=== PATIENT | male | born 1985 | race Caucasian/White ===

== ENCOUNTER → 2016-11-11 | Outpatient (REF) | payer BC ==
[2016-11-11 12:12] LABS: ALBUMIN 3.7 GM/DL (3.2-5.2); ALKALINE PHOSPHATASE 78 U/L (45-117); ALT/SGPT 75 U/L (12-78); ANION GAP 9 MEQ/L (8-16); AST/SGOT 30 U/L (15-37); BILIRUBIN,TOTAL 0.6 MG/DL (0.2-1.0); BLOOD UREA NITROGEN 10 MG/DL (7-18); CALCIUM LEVEL 9.2 MG/DL (8.5-10.1); CARBON DIOXIDE LEVEL 30 MEQ/L (21-32); CHLORIDE LEVEL 105 MEQ/L (98-107); CHOLESTEROL LEVEL 160 MG/DL (<200); CREATININE FOR GFR 0.81 MG/DL (0.70-1.30); FREE T4 1.35 NG/DL (0.76-1.46); GLOMERULAR FILTRATION RATE > 60.0 (>60); GLUCOSE, FASTING 153 MG/DL (70-105); POTASSIUM SERUM 4.1 MEQ/L (3.5-5.1); SODIUM LEVEL 144 MEQ/L (136-145); TOTAL PROTEIN 7.4 GM/DL (6.4-8.2); TRIGLYCERIDES LEVEL 139 MG/DL (<150)
== END ==
LOC: M SFHCCLAY 08:16
PROVIDERS: ATTEND Family Medicine
DX: I10 Essential (primary) hypertension (principal); E11.9 Type 2 diabetes mellitus without complications

== ENCOUNTER → 2017-05-16 | Outpatient (REF) | payer BC ==
[2017-05-16 12:06] LABS: ALBUMIN 3.7 GM/DL (3.2-5.2); ALBUMIN/GLOBULIN RATIO 0.93 (1.00-1.93); ALKALINE PHOSPHATASE 97 U/L (45-117); ALT/SGPT 76 U/L (12-78); ANION GAP 7 MEQ/L (8-16); AST/SGOT 32 U/L (7-37); BILIRUBIN,TOTAL 0.5 MG/DL (0.2-1.0); BLOOD UREA NITROGEN 9 MG/DL (7-18); CALCIUM LEVEL 9.3 MG/DL (8.5-10.1); CARBON DIOXIDE LEVEL 29 MEQ/L (21-32); CHLORIDE LEVEL 106 MEQ/L (98-107); CHOLESTEROL LEVEL 169 MG/DL (<200); CREATININE FOR GFR 0.74 MG/DL (0.70-1.30); FREE T4 1.22 NG/DL (0.76-1.46); GLOMERULAR FILTRATION RATE > 60.0 (>60); GLUCOSE, FASTING 144 MG/DL (70-105); POTASSIUM SERUM 3.9 MEQ/L (3.5-5.1); SODIUM LEVEL 142 MEQ/L (136-145); TOTAL PROTEIN 7.7 GM/DL (6.4-8.2); TRIGLYCERIDES LEVEL 169 MG/DL (<150)
== END ==
LOC: M SFHCCLAY 07:57
PROVIDERS: ATTEND Family Medicine
DX: I10 Essential (primary) hypertension (principal); E11.9 Type 2 diabetes mellitus without complications

== ENCOUNTER → 2017-11-01 | Outpatient (REF) | payer BC ==
[2017-11-01 12:20] LABS: ESTIMATED AVERAGE GLUCOSE 157 MG/DL (60-110); HEMOGLOBIN A1c 7.1 %
[2017-11-01 12:37] LABS: MALB URINE SIEMENS 28.1 MG/L; MAU/CREAT RATIO 21.4 MCG/MG (0.0-30.0)
[2017-11-01 12:40] LABS: ALBUMIN 3.8 GM/DL (3.2-5.2); ALBUMIN/GLOBULIN RATIO 0.93 (1.00-1.93); ALKALINE PHOSPHATASE 87 U/L (45-117); ALT/SGPT 98 U/L (12-78); ANION GAP 9 MEQ/L (8-16); AST/SGOT 42 U/L (7-37); BILIRUBIN,TOTAL 0.7 MG/DL (0.2-1.0); BLOOD UREA NITROGEN 8 MG/DL (7-18); CALCIUM LEVEL 8.9 MG/DL (8.5-10.1); CARBON DIOXIDE LEVEL 27 MEQ/L (21-32); CHLORIDE LEVEL 104 MEQ/L (98-107); CHOLESTEROL LEVEL 161 MG/DL (<200); CREATININE FOR GFR 0.61 MG/DL (0.70-1.30); FREE T4 1.12 NG/DL (0.76-1.46); GLOMERULAR FILTRATION RATE > 60.0 (>60); GLUCOSE, FASTING 136 MG/DL (70-100); HDL CHOLESTEROL 35 MG/DL (>40); LDL CHOLESTEROL 95.6 MG/DL (<100); NON-HDL-C 126 MG/DL; POTASSIUM SERUM 3.8 MEQ/L (3.5-5.1); SODIUM LEVEL 140 MEQ/L (136-145); THYROID STIMULATING HORMONE 0.846 uIU/ML (0.358-3.740); TOTAL PROTEIN 7.9 GM/DL (6.4-8.2); TRIGLYCERIDES LEVEL 152 MG/DL (<150)
== END ==
LOC: M SFHCCLAY 09:20
DX: I10 Essential (primary) hypertension (principal); E11.9 Type 2 diabetes mellitus without complications
CPT/HCPCS: 84443

== ENCOUNTER → 2018-03-22 | Outpatient (REF) | payer BC ==
[2018-03-22 11:57] LABS: ESTIMATED AVERAGE GLUCOSE 137 MG/DL (60-110); HEMOGLOBIN A1c 6.4 %
[2018-03-22 12:32] LABS: ALBUMIN/GLOBULIN RATIO 1.08 (1.00-1.93); ALKALINE PHOSPHATASE 89 U/L (45-117); ALT/SGPT 47 U/L (12-78); ANION GAP 9 MEQ/L (8-16); AST/SGOT 18 U/L (7-37); BILIRUBIN,TOTAL 0.5 MG/DL (0.2-1.0); BLOOD UREA NITROGEN 12 MG/DL (7-18); CARBON DIOXIDE LEVEL 26 MEQ/L (21-32); CHLORIDE LEVEL 108 MEQ/L (98-107); CREATININE FOR GFR 0.77 MG/DL (0.70-1.30); GLOMERULAR FILTRATION RATE > 60.0 (>60); GLUCOSE, FASTING 120 MG/DL (70-100); POTASSIUM SERUM 3.9 MEQ/L (3.5-5.1); SODIUM LEVEL 143 MEQ/L (136-145); TOTAL PROTEIN 7.7 GM/DL (6.4-8.2)
== END ==
LOC: M SFHCCLAY 08:20
DX: I10 Essential (primary) hypertension (principal)
CPT/HCPCS: 80053

== ENCOUNTER → 2018-08-09 | Outpatient (REF) | payer BC | LOC: M SFHCCLAY 09:22 | PROVIDERS: ATTEND Family Medicine | DX: Z53.9 Procedure and treatment not carried out, unspecified reason (principal); I10 Essential (primary) hypertension; E11.9 Type 2 diabetes mellitus without complications ==

== ENCOUNTER → 2018-09-10 | Outpatient (REF) | payer BC ==
[2018-09-10 17:19] LABS: ALBUMIN 3.7 GM/DL (3.2-5.2); ALT/SGPT 64 U/L (12-78); BILIRUBIN,TOTAL 0.5 MG/DL (0.2-1.0); BLOOD UREA NITROGEN 8 MG/DL (7-18); CALCIUM LEVEL 8.8 MG/DL (8.5-10.1); CARBON DIOXIDE LEVEL 27 MEQ/L (21-32); CHLORIDE LEVEL 104 MEQ/L (98-107); CREATININE FOR GFR 0.65 MG/DL (0.70-1.30); GLOMERULAR FILTRATION RATE > 60.0 (>60); GLUCOSE, FASTING 140 MG/DL (70-100); POTASSIUM SERUM 3.9 MEQ/L (3.5-5.1); SODIUM LEVEL 140 MEQ/L (136-145); TOTAL PROTEIN 7.6 GM/DL (6.4-8.2)
== END ==
LOC: M SFHCCLAY 12:53
PROVIDERS: ATTEND Family Medicine
DX: E11.9 Type 2 diabetes mellitus without complications (principal)

== ENCOUNTER → 2019-02-04 | Outpatient (REF) | payer BC ==
[2019-02-04 17:40] LABS: ALBUMIN 3.7 GM/DL (3.2-5.2); ALT/SGPT 115 U/L (12-78); BILIRUBIN,TOTAL 0.7 MG/DL (0.2-1.0); BLOOD UREA NITROGEN 8 MG/DL (7-18); CALCIUM LEVEL 8.7 MG/DL (8.5-10.1); CARBON DIOXIDE LEVEL 32 MEQ/L (21-32); CHLORIDE LEVEL 104 MEQ/L (98-107); CHOLESTEROL LEVEL 181 MG/DL (<200); CHOLESTEROL RISK RATIO 4.891 (<5); GLOMERULAR FILTRATION RATE > 60.0 (>60); GLUCOSE, FASTING 170 MG/DL (70-100); HDL CHOLESTEROL 37 MG/DL (>40); LDL CHOLESTEROL 114 MG/DL (<100); NON-HDL-C 144 MG/DL; POTASSIUM SERUM 3.7 MEQ/L (3.5-5.1); SODIUM LEVEL 142 MEQ/L (136-145); TOTAL PROTEIN 7.5 GM/DL (6.4-8.2); TRIGLYCERIDES LEVEL 149 MG/DL (<150)
[2019-02-04 18:19] LABS: HEMOGLOBIN A1c 7.6 %
== END ==
LOC: M SFHCCLAY 10:05
PROVIDERS: ATTEND Family Medicine
DX: I10 Essential (primary) hypertension (principal); E78.2 Mixed hyperlipidemia; E11.9 Type 2 diabetes mellitus without complications

== ENCOUNTER → 2019-07-01 | Outpatient (REF) | payer BC ==
[2019-07-01 16:47] LABS: ALBUMIN 3.8 GM/DL (3.2-5.2); ALT/SGPT 143 U/L (12-78); BILIRUBIN,TOTAL 0.8 MG/DL (0.2-1.0); BLOOD UREA NITROGEN 7 MG/DL (7-18); CARBON DIOXIDE LEVEL 30 MEQ/L (21-32); CHLORIDE LEVEL 104 MEQ/L (98-107); CREATININE FOR GFR 0.72 MG/DL (0.70-1.30); GLOMERULAR FILTRATION RATE > 60.0 (>60); GLUCOSE, FASTING 213 MG/DL (70-100); POTASSIUM SERUM 4.2 MEQ/L (3.5-5.1); SODIUM LEVEL 141 MEQ/L (136-145); TOTAL PROTEIN 7.7 GM/DL (6.4-8.2)
[2019-07-01 18:16] LABS: HEMOGLOBIN A1c 8.4 %
[2019-07-03 11:19] LABS: HEPATITIS C VIRUS ABY INDEX 0.1 INDEX (<0.8)
== END ==
LOC: M SFHCCLAY 11:19
PROVIDERS: ATTEND Family Medicine
DX: I10 Essential (primary) hypertension (principal); E11.9 Type 2 diabetes mellitus without complications; R94.5 Abnormal results of liver function studies

== ENCOUNTER → 2019-12-02 | Outpatient (REF) | payer BC ==
[2019-12-02 17:36] LABS: HEMOGLOBIN A1c 8.1 %
[2019-12-02 17:53] LABS: ALBUMIN 3.6 GM/DL (3.2-5.2); ALT/SGPT 75 U/L (12-78); BILIRUBIN,TOTAL 0.9 MG/DL (0.2-1.0); BLOOD UREA NITROGEN 8 MG/DL (7-18); CALCIUM LEVEL 9.1 MG/DL (8.5-10.1); CARBON DIOXIDE LEVEL 30 MEQ/L (21-32); CHLORIDE LEVEL 101 MEQ/L (98-107); CREATININE FOR GFR 0.73 MG/DL (0.70-1.30); GLOMERULAR FILTRATION RATE > 60.0 (>60); GLUCOSE, FASTING 198 MG/DL (70-100); POTASSIUM SERUM 4.3 MEQ/L (3.5-5.1); SODIUM LEVEL 137 MEQ/L (136-145); TOTAL PROTEIN 7.4 GM/DL (6.4-8.2)
== END ==
LOC: M SFHCCLAY 10:43
PROVIDERS: ATTEND Family Medicine
DX: I10 Essential (primary) hypertension (principal); E11.9 Type 2 diabetes mellitus without complications

== ENCOUNTER → 2020-07-20 | Outpatient (REF) | payer BC ==
[2020-07-20 16:51] LABS: BLOOD UREA NITROGEN 13 MG/DL (7-18); CALCIUM LEVEL 9.4 MG/DL (8.5-10.1); CARBON DIOXIDE LEVEL 35 MEQ/L (21-32); CHLORIDE LEVEL 104 MEQ/L (98-107); CHOLESTEROL LEVEL 170 MG/DL (<200); CHOLESTEROL RISK RATIO 4.857 (<5); CREATININE FOR GFR 0.82 MG/DL (0.70-1.30); GLOMERULAR FILTRATION RATE > 60.0 (>60); GLUCOSE, FASTING 152 MG/DL (70-100); HDL CHOLESTEROL 35 MG/DL (>40); LDL CHOLESTEROL 111 MG/DL (<100); NON-HDL-C 135 MG/DL; POTASSIUM SERUM 4.7 MEQ/L (3.5-5.1); SODIUM LEVEL 140 MEQ/L (136-145); TRIGLYCERIDES LEVEL 121 MG/DL (<150)
[2020-07-20 16:52] LABS: MALB URINE SIEMENS 16.4 MG/L; MAU/CREAT RATIO 8.2 MCG/MG (0.0-30.0)
[2020-07-20 17:26] LABS: HEMOGLOBIN A1c 6.9 %
== END ==
LOC: M SFHCCLAY 10:42
PROVIDERS: ATTEND Family Medicine
DX: E11.9 Type 2 diabetes mellitus without complications (principal)

== ENCOUNTER → 2020-10-26 | Outpatient (REF) | payer BC, OTHER ==
[2020-10-26 16:40] LABS: BLOOD UREA NITROGEN 8 MG/DL (7-18); CALCIUM LEVEL 9.5 MG/DL (8.5-10.1); CARBON DIOXIDE LEVEL 32 MEQ/L (21-32); CHLORIDE LEVEL 104 MEQ/L (98-107); CREATININE FOR GFR 0.65 MG/DL (0.70-1.30); GLOMERULAR FILTRATION RATE > 60.0 (>60); GLUCOSE, FASTING 140 MG/DL (70-100); POTASSIUM SERUM 4.2 MEQ/L (3.5-5.1); SODIUM LEVEL 139 MEQ/L (136-145)
[2020-10-26 16:47] LABS: HEMOGLOBIN A1c 6.7 %
== END ==
LOC: M SFHCCLAY 09:55
PROVIDERS: ATTEND Family Medicine
DX: I11.9 Hypertensive heart disease without heart failure (principal); E11.9 Type 2 diabetes mellitus without complications; I50.9 Heart failure, unspecified

== ENCOUNTER 2021-03-30 10:45 | Inpatient (IN) | payer BC, OTHER ==
[~2021-03-30] VITALS: Ht 195.6 cm; Wt 137.4 kg
[2021-03-30] MEDS ORDERED: NS 1,000 ML IV ONE (17:30)
[2021-03-30 17:57] LABS: BASO % 0.2 % (0.0-1.0); EOS % 0.2 % (0.0-3.0); HEMATOCRIT 35.2 % (42.0-52.0); HEMOGLOBIN 11.4 g/dl (13.5-17.5); LYMPH # 1.9 10^3/uL (1.5-5.0); MEAN CORPUSCULAR HEMOGLOBIN 27.2 pg (27.0-33.0); MEAN CORPUSCULAR HGB CONC 32.4 g/dl (32.0-36.5); MONO # 0.4 10^3/uL (0.0-0.8); NEUTROPHILS # 3.9 10^3/uL (1.5-8.5); NEUTROPHILS % 63.4 % (36.0-66.0); PLATELET COUNT, AUTOMATED 261 10^3/uL (150-450); RED BLOOD COUNT 4.19 10^6/uL (4.30-6.10); WHITE BLOOD COUNT 6.2 10^3/uL (4.0-10.0)
[2021-03-30 18:06] LABS: INR 1.15; PROTHROMBIN TIME 15.1 SECONDS (12.7-14.5)
[2021-03-30 18:07] LABS: PARTIAL THROMBOPLASTIN TIME 32.2 SECONDS (25.9-37.0)
[2021-03-30] MEDS ORDERED: MULT1TAB8 PO (18:10)
[2021-03-30] MEDS ORDERED: ESCI5SOL3 PO (18:10)
[2021-03-30] MEDS ORDERED: ALLO300T2 (18:10)
[2021-03-30] MEDS ORDERED: CYAN500T14 PO (18:10)
[2021-03-30] MEDS ORDERED: DOXA1TAB41 PO (18:10)
[2021-03-30] MEDS ORDERED: NOXI1TAB PO (18:10)
[2021-03-30] MEDS ORDERED: CARV25TA PO ×2 (18:10→23:58)
[2021-03-30 18:23] LABS: ALBUMIN 3.5 GM/DL (3.2-5.2); ALT/SGPT 21 U/L (12-78); BILIRUBIN,DIRECT 0.2 MG/DL (0.0-0.2); BILIRUBIN,TOTAL 0.6 MG/DL (0.2-1.0); BLOOD UREA NITROGEN 11 MG/DL (7-18); CALCIUM LEVEL 8.7 MG/DL (8.5-10.1); CARBON DIOXIDE LEVEL 26 MEQ/L (21-32); CHLORIDE LEVEL 109 MEQ/L (98-107); CREATININE FOR GFR 0.65 MG/DL (0.70-1.30); GLOMERULAR FILTRATION RATE > 60.0 (>60); GLUCOSE, FASTING 102 MG/DL (70-100); LIPASE 79 U/L (73-393); POTASSIUM SERUM 3.9 MEQ/L (3.5-5.1); SODIUM LEVEL 142 MEQ/L (136-145); TOTAL PROTEIN 7.8 GM/DL (6.4-8.2)
[2021-03-30] MEDS: GASTROGRAFIN SOLUTION 30ML PO SCH ×2 (18:30→19:00)
[2021-03-30 19:21] LABS: CK-MB VALUE MASS < 1.0 NG/ML (<3.6); CPK CREATINE PHOSPHOKINASE 58 U/L (39-308); MB/CK RELATIVE INDEX 1.72 (< OR =4); TROPONIN I < 0.02 NG/ML (< 0.10)
[2021-03-30] MEDS ORDERED: ISOVUE-370 76% 100ML VIAL As Ordered ONE (19:51)
--- NOTE | 2021-03-30 21:27 | REPVR ---
PROCEDURE INFORMATION: Exam: CT Abdomen And Pelvis With Contrast Exam date and time: 03/30/2021 8:04 PM Age: 35 years old Clinical indication: Abdominal pain; Localized; Left lower quadrant (llq); Additional info: Llq pain, brbpr, lily bypass, covid + TECHNIQUE: Imaging protocol: Computed tomography of the abdomen and pelvis with contrast. Radiation optimization: All CT scans at this facility use at least one of these dose optimization techniques: automated exposure control; mA and/or kV adjustment per patient size (includes targeted exams where dose is matched to clinical indication); or iterative reconstruction. Contrast material: ISOVUE 370; Contrast volume: 100 ml; Contrast route: INTRAVENOUS (IV); COMPARISON: No relevant prior studies available. FINDINGS: Lungs: Minimal dependent atelectasis in the lower lobes. Liver: Normal. No mass. Gallbladder and bile ducts: Normal. No calcified stones. No ductal dilation. Pancreas: Normal. No ductal dilation. Spleen: Normal. No splenomegaly. Adrenal glands: Normal. No mass. Kidneys and ureters: Small nonobstructing bilateral renal calculi. There are bilateral renal cysts measuring up to 14 mm on the left with a Hounsfield measurement of 14 consistent with a simple cyst with no enhancement. No follow-up imaging is recommended. Stomach and bowel: There has been gastric bypass with collapse of the bypassed stomach. Appendix: A normal appendix is seen along the right lateral pelvic sidewall. 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 Fat infarct may be a consideration. Vasculature: Unremarkable. No abdominal aortic aneurysm. Lymph nodes: Unremarkable. No enlarged lymph nodes. Urinary bladder: Unremarkable as visualized. Reproductive: Unremarkable as visualized. Bones/joints: Degenerative disc change of the lumbar spine, particularly L5-S1 with posterolateral osteophytes and bilateral neural foraminal stenosis at L5-S1. Soft tissues: Unremarkable. IMPRESSION: 1. Small nonobstructing bilateral renal calculi. No ureteral calculi are evident and there is no evidence of obstructive uropathy. 2. Marginated area of slightly edematous fat in the right lower quadrant which may reflect an area of mesenteritis or possibly fat infarct. 3. Degenerative disc change at L5-S1 with posterolateral osteophytes and bilateral neural foraminal stenosis. 4. Status post gastric bypass. 5. Otherwise negative CT abdomen/pelvis. COMMENTS: Consistent with the [employer]'s Incidental Findings Committee white paper (J Am Milly Radiol 2018): Any incidental renal lesion less than 1 cm or classified as too small to characterize, or any incidental cystic renal lesion characterized as simple-appearing, is likely benign. No follow-up imaging is recommended for these lesions per consensus recommendations based on imaging criteria. Electronically signed by: Jose Carlos Grove On 03/30/2021 21:26:38 PM
--- NOTE | 2021-03-30 22:12 | ECGEPIP ---
[facility] - ED Test Date: 2021-03-30 Pat Name: REGLA MCFARLAND Department: Room: - Gender: Male [employer] Chief Scientist: PIERRE : 1985 Requested By: Marixa Sales PA-C Order Number: [id number] Reading MD: Efrain Sandhu Measurements Intervals Perkins Rate: 74 P: 32 [place]: 138 QRS: 9 QRSD: 120 T: 17 QT: 392 QTc: 435 Interpretive Statements Normal sinus rhythm RSR' or QR pattern in V1 suggests right ventricular conduction delay Electronically Signed on 03-30-2021 22:12:47 EDT by Efrain Sandhu
[2021-03-30 23:06] LABS: BASO % 0.2 % (0.0-1.0); EOS % 0.5 % (0.0-3.0); HEMATOCRIT 31.2 % (42.0-52.0); HEMOGLOBIN 10.1 g/dl (13.5-17.5); LYMPH # 2.1 10^3/uL (1.5-5.0); LYMPH % 34.7 % (24.0-44.0); MEAN CORPUSCULAR HEMOGLOBIN 27.4 pg (27.0-33.0); MEAN CORPUSCULAR HGB CONC 32.4 g/dl (32.0-36.5); MEAN CORPUSCULAR VOLUME 84.6 fl (80.0-96.0); MONO # 0.4 10^3/uL (0.0-0.8); NEUTROPHILS # 3.5 10^3/uL (1.5-8.5); NEUTROPHILS % 58.4 % (36.0-66.0); PLATELET COUNT, AUTOMATED 222 10^3/uL (150-450); RED BLOOD COUNT 3.69 10^6/uL (4.30-6.10)
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
[2021-03-30] MEDS ORDERED: ALLO300T2 PO (23:58)
[2021-03-30] MEDS ORDERED: VITMTA PO (23:58)
[2021-03-30] MEDS ORDERED: D-3-50003 PO (23:58)
[2021-03-30] MEDS ORDERED: VITA100018 PO (23:58)
[2021-03-30] MEDS ORDERED: LEXA1TAB PO (23:58)
[2021-03-30] MEDS ORDERED: DOXA2TAB3 PO (23:58)
[2021-03-31] MEDS ORDERED: HOME MED LIST COMPLETE! XX SCH
[2021-03-31 03:55] LABS: BASO % 0.2 % (0.0-1.0); EOS % 0.6 % (0.0-3.0); HEMATOCRIT 32.4 % (42.0-52.0); HEMOGLOBIN 10.6 g/dl (13.5-17.5); LYMPH # 1.8 10^3/uL (1.5-5.0); LYMPH % 28.6 % (24.0-44.0); MEAN CORPUSCULAR HEMOGLOBIN 27.5 pg (27.0-33.0); MEAN CORPUSCULAR HGB CONC 32.7 g/dl (32.0-36.5); MEAN CORPUSCULAR VOLUME 83.9 fl (80.0-96.0); MONO # 0.4 10^3/uL (0.0-0.8); MONO % 6.3 % (2.0-8.0); NEUTROPHILS # 4.1 10^3/uL (1.5-8.5); NEUTROPHILS % 64.1 % (36.0-66.0); PLATELET COUNT, AUTOMATED 229 10^3/uL (150-450); RED BLOOD COUNT 3.86 10^6/uL (4.30-6.10); WHITE BLOOD COUNT 6.4 10^3/uL (4.0-10.0)
[2021-03-31 04:35] LABS: ALBUMIN 3.3 GM/DL (3.2-5.2); ALT/SGPT 20 U/L (12-78); BILIRUBIN,TOTAL 0.6 MG/DL (0.2-1.0); BLOOD UREA NITROGEN 9 MG/DL (7-18); CALCIUM LEVEL 8.4 MG/DL (8.5-10.1); CARBON DIOXIDE LEVEL 27 MEQ/L (21-32); CHLORIDE LEVEL 109 MEQ/L (98-107); CREATININE FOR GFR 0.64 MG/DL (0.70-1.30); GLOMERULAR FILTRATION RATE > 60.0 (>60); GLUCOSE, FASTING 85 MG/DL (70-100); POTASSIUM SERUM 3.6 MEQ/L (3.5-5.1); SODIUM LEVEL 142 MEQ/L (136-145)
[2021-03-31] MEDS ORDERED: LR 1,000 ML IV ONE (04:40)
[2021-03-31] MEDS: PANTOPRAZOLE 40MG VIAL (C9113 PER 1) IV SCH (08:40)
[2021-03-31] MEDS: MULTIVITAMINS/MINERALS THERAP 1 TAB PO SCH (08:41)
[2021-03-31] MEDS: SUCRALFATE 1 GM TAB PO SCH ×4 (08:41→21:14)
[2021-03-31] MEDS: ESCITALOPRAM OXALATE 10 MG TAB (LEXAPRO) PO SCH (08:41)
[2021-03-31] MEDS: allopurinoL 300 MG TAB PO SCH (08:41)
[2021-03-31] MEDS: CYANOCOBALAMIN 500 MCG TAB PO SCH (08:41)
[2021-03-31] MEDS: CARVedilol 12.5 MG TAB PO SCH ×2 (08:42→21:15)
--- NOTE | 2021-03-31 09:15 | IPNPDOC ---
Date Seen The patient was seen on 03/31/21. Progress Note SUBJECTIVE: Patient was seen examined at bedside. He is still in the ER. Patient appears comfortable, denies any chest pain palpitations nausea vomiting or shortness of breath. He is afebrile. He has no abdominal pain. Has not had a bowel movement this morning. OBJECTIVE PHYSICAL EXAMINATION: VITAL SIGNS: please see below General: NAD, comfortable HEENT: PERRLA, EOMI, sclerae clear Neck: supple, normal ROM, no JVD Respiratory: lungs CTAB, no wheeze, no rales, no crackles CVS: RRR, normal S1, S2, no murmurs Abdo: soft, no masses, no hepatosplenomegaly, BS+, no rebound tenderness Extremities: no edema, pulses 2+ MSK: no joint deformities, normal ROM Neuro: no focal neuro deficits, moving all 4 extremities, CN2-12 intact. Strength 5/5 in all 4 extremities. No nystagmus. Psych: calm, cooperative, AAO x 3 LABORATORY DATA, IMAGING STUDIES, MICROBIOLOGY: Please see below. DVT prophylaxis ordered?: Teds and SCDs. ASSESSMENT AND PLAN: 35-year-old male with a history of obesity, type 2 diabetes, gastric bypass, hypertension, fatty liver, GERD, and nephrolithiasis. Presented with blood in toilet x2 days following a syncopal episode. History of recurrent GI bleeding shortly after his bypass surgery in November requiring blood transfusions. Dr. Machado from gastroenterology has been consulted, recommending continuing IV PPI and plan for EGD on 04/01/2021 PROBLEMS: Acute blood loss anemia: dark blood in toilet. Possible upper vs lower source. Hgb 11.4, trended to 10.1. GI consult placed with Dr. Mirza. CLD. Plan for EGD. Syncope - likely vasovagal: negative orthostasis. s/p 1L bolus. Check 2D echo. Check carotid US. Tele monitoring. Covid-19 infection: incidental. Vaccinated. Loss of taste/smell. Saturating > 95% on RA. HTN: refractory to pharmacotherapy. Follows with Dr. Murphy. BP elevated in ER, 190 systolic. C/w doxazosin, coreg. Give hydralazine 10 mg IV once. Non obstructing renal stones: seen on CT. No evidence of hydronephrosis. Hx of gastric bypass surgery Hx of Gout: c/w allopurinol. DVT ppx: SCDs. TEDs. Dispo: pending clinical improvement. Admission expected to last > 2 midnights. VS, I&O, 24H[facility] Vital Signs/I&O Vital Signs Date Time Temp Pulse Resp B/P (MAP) Pulse Ox O2 Delivery O2 Flow Rate FiO2 03/31/21 08:51 Room Air 03/31/21 08:51 185/91 (122) 03/31/21 08:45 97 100 03/31/21 00:07 22 03/30/21 10:46 98.4 Laboratory Data 24H LABS Laboratory Tests 2 03/30/21 17:38: Immature Granulocyte % (Auto) 0.2, Neutrophils (%) (Auto) 63.4, Lymphocytes (%) (Auto) 30.0, Monocytes (%) (Auto) 6.0, Eosinophils (%) (Auto) 0.2, Basophils (%) (Auto) 0.2, Neutrophils # (Auto) 3.9, Lymphocytes # (Auto) 1.9, Monocytes # (Auto) 0.4, Eosinophils # (Auto) 0.0, Basophils # (Auto) 0.0, Nucleated Red Blood Cells % (auto) 0.0, Prothrombin Time 15.1H, Prothromb Time International Ratio 1.15, Activated Partial Thromboplast Time 32.2, Anion Gap 7L, Glomerular Filtration Rate > 60.0, Calcium Level 8.7, Total Bilirubin 0.6, Direct Bilirubin 0.2, Aspartate Amino Transf (AST/SGOT) 18, Alanine Aminotransferase (ALT/SGPT) 21, Alkaline Phosphatase 70, Total Creatine Kinase 58, Creatine Kinase MB < 1.0, Creatine Kinase MB Relative Index 1.72, Troponin I < 0.02, Total Protein 7.8, Albumin 3.5, Albumin/Globulin Ratio 0.8, Lipase 79 03/30/21 22:45: Immature Granulocyte % (Auto) 0.2, Neutrophils (%) (Auto) 58.4, Lymphocytes (%) (Auto) 34.7, Monocytes (%) (Auto) 6.0, Eosinophils (%) (Auto) 0.5, Basophils (%) (Auto) 0.2, Neutrophils # (Auto) 3.5, Lymphocytes # (Auto) 2.1, Monocytes # (Auto) 0.4, Eosinophils # (Auto) 0.0, Basophils # (Auto) 0.0, Nucleated Red Blood Cells % (auto) 0.0 03/31/21 03:47: Immature Granulocyte % (Auto) 0.2, Neutrophils (%) (Auto) 64.1, Lymphocytes (%) (Auto) 28.6, Monocytes (%) (Auto) 6.3, Eosinophils (%) (Auto) 0.6, Basophils (%) (Auto) 0.2, Neutrophils # (Auto) 4.1, Lymphocytes # (Auto) 1.8, Monocytes # (Auto) 0.4, Eosinophils # (Auto) 0.0, Basophils # (Auto) 0.0, Nucleated Red Blood Cells % (auto) 0.0, Anion Gap 6L, Glomerular Filtration Rate > 60.0, Calcium Level 8.4L, Total Bilirubin 0.6, Aspartate Amino Transf (AST/SGOT) 15, Alanine Aminotransferase (ALT/SGPT) 20, Alkaline Phosphatase 63, Total Protein 7.0, Albumin 3.3, Albumin/Globulin Ratio 0.9, Magnesium Level 2.0 CBC/BMP Laboratory Tests 03/30/21 17:38 03/30/21 22:45 03/31/21 03:47 MEGAN REYES MD Mar 31, 2021 09:15
[2021-03-31] MEDS ORDERED: hydrALAZINE 20MG/ML 1ML VIAL (J0360 PER 20MG) IV ONE (11:20)
[2021-03-31] MEDS ORDERED: VITAMIN D 1,000 INTERNATIONAL UNITS TABLET PO SCH (21:00)
[2021-03-31] MEDS ORDERED: DOXAZOSIN MESYLATE 1 MG TAB PO SCH (21:00)
[2021-04-01] VITALS: BP 169/91
[2021-04-01 05:26] VITALS: BP 158/90
[2021-04-01 07:44] LABS: HEMATOCRIT 29.9 % (42.0-52.0); HEMOGLOBIN 9.7 g/dl (13.5-17.5); MEAN CORPUSCULAR HEMOGLOBIN 27.3 pg (27.0-33.0); MEAN CORPUSCULAR HGB CONC 32.4 g/dl (32.0-36.5); MEAN CORPUSCULAR VOLUME 84.2 fl (80.0-96.0); PLATELET COUNT, AUTOMATED 216 10^3/uL (150-450); RED BLOOD COUNT 3.55 10^6/uL (4.30-6.10); WHITE BLOOD COUNT 4.8 10^3/uL (4.0-10.0)
[2021-04-01 07:59] LABS: BLOOD UREA NITROGEN 5 MG/DL (7-18); CALCIUM LEVEL 8.4 MG/DL (8.5-10.1); CARBON DIOXIDE LEVEL 29 MEQ/L (21-32); CHLORIDE LEVEL 105 MEQ/L (98-107); CREATININE FOR GFR 0.52 MG/DL (0.70-1.30); GLOMERULAR FILTRATION RATE > 60.0 (>60); GLUCOSE, FASTING 73 MG/DL (70-100); POTASSIUM SERUM 3.3 MEQ/L (3.5-5.1); SODIUM LEVEL 139 MEQ/L (136-145)
[2021-04-01] MEDS ORDERED: POTASSIUM CHLORIDE 10% LIQ 20 MEQ/15 ML UDC PO ONE (08:25)
[2021-04-01] MEDS ORDERED: INFLUENZA QUADRIVALENT PF VACCINE 0.5ML SYRINGE IM ONE (09:00)
[2021-04-01 10:41] VITALS: BP 158/90
[2021-04-01] MEDS: CARVedilol 12.5 MG TAB PO SCH (10:41)
[2021-04-01] MEDS: CYANOCOBALAMIN 500 MCG TAB PO SCH (10:41)
[2021-04-01] MEDS: allopurinoL 300 MG TAB PO SCH (10:41)
[2021-04-01] MEDS: MULTIVITAMINS/MINERALS THERAP 1 TAB PO SCH (10:42)
[2021-04-01] MEDS: ESCITALOPRAM OXALATE 10 MG TAB (LEXAPRO) PO SCH (10:42)
[2021-04-01] MEDS: PANTOPRAZOLE 40MG VIAL (C9113 PER 1) IV SCH (10:42)
[2021-04-01] MEDS: SUCRALFATE 1 GM TAB PO SCH ×2 (10:42→13:58)
[2021-04-01 14:00] VITALS: BP 153/89
[2021-04-01] MEDS ORDERED: MIRALAX *UNIT DOSE* 17GM PACKET PO STA (15:18)
[2021-04-01] MEDS ORDERED: PANT40TA29 PO (17:31)
--- NOTE | 2021-04-01 17:33 | DS.PDOC ---
Discharge Summary General Date of Admission Mar 30, 2021 at 23:26 Date of Discharge Primary Care Physician: BETO ISAAC DO Discharge Summary PROCEDURES PERFORMED DURING STAY: [None]. ADMITTING DIAGNOSES: 1. . DISCHARGE DIAGNOSES: 1. . COMPLICATIONS/CHIEF COMPLAINT: Covid-19, Gi Bleed. HISTORY OF PRESENT ILLNESS: . HOSPITAL COURSE: . DISCHARGE MEDICATIONS: Please see below. ALLERGIES: Please see below. PHYSICAL EXAMINATION ON DISCHARGE: VITAL SIGNS: Please see below. GENERAL: HEENT: NECK: CARDIOVASCULAR EXAMINATION: RESPIRATORY EXAMINATION: ABDOMINAL EXAMINATION: EXTREMITIES: SKIN: NEUROLOGICAL EXAMINATION: PSYCHIATRIC EXAMINATION: LABORATORY DATA: Please see below. IMAGING: PROGNOSIS: ACTIVITY: [As tolerated]. DIET: DISCHARGE PLAN: DISPOSITION: . DISCHARGE INSTRUCTIONS: 1. . ITEMS TO FOLLOWUP ON ON OUTPATIENT: 1. . DISCHARGE CONDITION: [Stable]. TIME SPENT ON DISCHARGE: minutes. Vital Signs/I&Os Vital Signs Date Time Temp Pulse Resp B/P (MAP) Pulse Ox O2 Delivery O2 Flow Rate FiO2 04/01/21 14:00 97.9 66 18 153/89 (110) 96 Room Air I&O- Last 24 Hours up to 6 AM 04/01/21 06:00 Intake Total 1000 ml Balance 1000 ml Laboratory Data Labs 24H Laboratory Tests 2 04/01/21 07:00: Nucleated Red Blood Cells % (auto) 0.0, Anion Gap 5L, Glomerular Filtration Rate > 60.0, Calcium Level 8.4L CBC/BMP Laboratory Tests 04/01/21 07:00 Discharge Medications Scheduled Carvedilol (Carvedilol) 25 Mg Tablet, 25 MG PO BID, (Reported) Cholecalciferol (Vitamin D3) (Vitamin D3) 125 Mcg Capsule, 125 MCG PO QHS, (Reported) Cyanocobalamin (Vitamin B-12) (Vitamin B-12) 1,000 Mcg Tablet, 1,000 MCG PO DAILY, (Reported) Doxazosin Mesylate (Doxazosin) 2 Mg Tablet, 2 MG PO QHS, (Reported) Escitalopram Oxalate (Lexapro) 10 Mg Tablet, 10 MG PO DAILY, (Reported) Multivitamins (Thera M Plus Tablet) 1 Each Tablet, 1 TAB PO DAILY, (Reported) Pantoprazole Sodium (Pantoprazole Sodium) 40 Mg Tablet.dr, 1 TAB PO DAILY allopurinoL (allopurinoL) 300 Mg Tablet, 300 MG PO DAILY, (Reported) Allergies Coded Allergies: amoxicillin (Verified Adverse Reaction, Mild, Diarrhea, 03/30/21) clavulanic acid (Verified Adverse Reaction, Mild, Diarrhea, 03/30/21) MEGAN REYES MD Apr 01, 2021 17:32
[2021-04-01] MEDS ORDERED: MIRALAX *UNIT DOSE* 17GM PACKET PO SCH (21:00)
--- NOTE | 2021-04-02 08:33 | CR.PDOC ---
General Date of Consultation: Apr 01, 2021 Referring Provider: MEGAN REYES MD Attending Physician: FAVIAN THAO MD Vital Signs/I&O Vital Signs Date Time Temp Pulse Resp B/P (MAP) Pulse Ox O2 Delivery O2 Flow Rate FiO2 04/01/21 14:00 97.9 66 18 153/89 (110) 96 Room Air Allergies Coded Allergies: amoxicillin (Verified Adverse Reaction, Mild, Diarrhea, 03/30/21) clavulanic acid (Verified Adverse Reaction, Mild, Diarrhea, 03/30/21) Home Medications Scheduled Carvedilol (Carvedilol) 25 Mg Tablet, 25 MG PO BID, (Reported) Cholecalciferol (Vitamin D3) (Vitamin D3) 125 Mcg Capsule, 125 MCG PO QHS, (Reported) Cyanocobalamin (Vitamin B-12) (Vitamin B-12) 1,000 Mcg Tablet, 1,000 MCG PO DAILY, (Reported) Doxazosin Mesylate (Doxazosin) 2 Mg Tablet, 2 MG PO QHS, (Reported) Escitalopram Oxalate (Lexapro) 10 Mg Tablet, 10 MG PO DAILY, (Reported) Multivitamins (Thera M Plus Tablet) 1 Each Tablet, 1 TAB PO DAILY, (Reported) Pantoprazole Sodium (Pantoprazole Sodium) 40 Mg Tablet.dr, 1 TAB PO DAILY for 30 Days, #30 allopurinoL (allopurinoL) 300 Mg Tablet, 300 MG PO DAILY, (Reported) FAVIAN THAO MD Apr 02, 2021 08:33
--- NOTE | 2021-04-04 12:31 | ECHO ---
ECHOCARDIOGRAM DATE OF PROCEDURE: 04/01/2021 Age: 35 Gender: Male Height: 196 cm Weight: 141 kg REFERRING PROVIDER: Miguel Ángel Mata M.D. PATIENT LOCATION: Room 4107. REASON FOR THE STUDY: Syncope MEASUREMENTS: 2D Measurements: IVS 1.3 cm LV 4.7 cm LVPW 1.2 cm LA 4.6 cm Aorta 3.1 cm IVC 2.1 cm Doppler Measurements: Peak velocity across the aortic valve 1.8 m/sec Peak velocity across the LVOT 1.1 m/sec Mitral E 0.79 Mitral A 0.88 with a ratio of 0.9 Maximum tricuspid valve velocity 2.8 m/sec 2D COMMENTS: 1. Normal left ventricular size with mildly increased left ventricular wall thickness. L left ventricular systolic function is normal, hyperdynamic and estimated at 65-70%. 2. Mildly enlarged left atrium. Normal right atrium and right ventricle. 3. The atrial septum appeared to be normal without evidence of defect or shunt. 4. Normal aortic root. 5. No pericardial effusion seen. 6. Mildly calcified aortic valve. Leaflet excursion appeared to be normal. Mildly calcified mitral annulus with normal anterior mitral valve leaflet motion. Normal tricuspid valve and pulmonic valve. The proximal pulmonary artery branches also appear to be normal. 7. The inferior vena cava is mildly enlarged. Central venous pressure is probably elevated. DOPPLER: It detects mild mitral regurgitation, mild tricuspid regurgitation and trace pulmonic regurgitation. The calculated pulmonary artery systolic pressure varies between 30-40 mmHg. Abnormal relaxation pattern was noted across the mitral valve leaflets as well as the mitral valve annulus consistent with features of grade 1 left ventricular diastolic dysfunction. IMPRESSION: 1. Normal global left ventricular systolic function with mild concentric left ventricular hypertrophy. There are some features of grade 1 left ventricular diastolic dysfunction manifested by abnormal relaxation. 2. Aortic valve sclerosis with trivial aortic stenosis, but no aortic regurgitation. 3. Mitral annulus calcification with a mildly enlarged left atrium and mild mitral regurgitation. 4. Mild tricuspid regurgitation with mild pulmonary hypertension. 5. There are some features of elevated central venous pressure. The inferior vena cava was mildly enlarged.
== END 2021-04-01 19:05 | disposition home or self-care (01) | DRG 253 ==
LOC: M ED 10:45 → M ED INP 23:26 → ENRESERV 03-31 20:54 → M 4MAIN 04-01 00:01
PROVIDERS: ADMIT Internal Medicine; ATTEND Family Medicine
DX: K92.2 Gastrointestinal hemorrhage, unspecified (principal); U07.1 COVID-19; K76.0 Fatty (change of) liver, not elsewhere classified; R55 Syncope and collapse; Z79.899 Other long term (current) drug therapy; Z88.8 Allergy status to other drugs, medicaments and biological substances; Z88.0 Allergy status to penicillin; E66.9 Obesity, unspecified; E11.9 Type 2 diabetes mellitus without complications; I10 Essential (primary) hypertension; K21.9 Gastro-esophageal reflux disease without esophagitis; M19.90 Unspecified osteoarthritis, unspecified site; Z87.891 Personal history of nicotine dependence; N20.0 Calculus of kidney; D62 Acute posthemorrhagic anemia

== ENCOUNTER → 2021-05-03 | Outpatient (REF) | payer BC, OTHER ==
[~2021-05-03] MED LIST: ALLO300T2; ALLO300T2 PO; CARV25TA PO; CYAN500T14 PO; D-3-50003 PO; DOXA1TAB41 PO; DOXA2TAB3 PO; ESCI5SOL3 PO; LEXA1TAB PO; MULT1TAB8 PO; NOXI1TAB PO; PANT40TA29 PO; VITA100018 PO; VITMTA PO
[2021-05-03 16:46] LABS: BLOOD UREA NITROGEN 8 MG/DL (7-18); GLOMERULAR FILTRATION RATE > 60.0 (>60)
== END ==
LOC: M LABDRAWC 15:34
PROVIDERS: ATTEND Internal Medicine Gastroenterology
DX: K76.9 Liver disease, unspecified (principal)

== ENCOUNTER → 2021-05-18 | Outpatient (CLI) | payer BC, OTHER ==
[~2021-05-18] MED LIST changes: +OMEP-173 PO; +OMEP40CA4 PO; +PROHANCE 279.3MG/ML 15ML VIAL As Ordered ONE; +PROHANCE 279.3MG/ML 5ML VIAL As Ordered ONE
== END ==
LOC: M RAD 17:45
PROVIDERS: ATTEND Internal Medicine Gastroenterology
DX: D62 Acute posthemorrhagic anemia (principal); R16.2 Hepatomegaly with splenomegaly, not elsewhere classified
CPT/HCPCS: 74183; A9576

== ENCOUNTER → 2021-05-19 | Outpatient (CLI) | payer BC, OTHER ==
[~2021-05-19] MED LIST changes: -PROHANCE 279.3MG/ML 15ML VIAL As Ordered ONE; -PROHANCE 279.3MG/ML 5ML VIAL As Ordered ONE
== END ==
LOC: M LABSMTC 09:53
PROVIDERS: ATTEND Anesthesiology
DX: Z01.812 Encounter for preprocedural laboratory examination (principal); Z20.822 Contact with and (suspected) exposure to COVID-19

== ENCOUNTER 2021-05-24 08:10 | Day surgery (SDC) | payer BC, OTHER ==
[~2021-05-24] VITALS: Ht 195.6 cm; Wt 131.5 kg
[~2021-05-24 08:10] MED LIST changes: +LIDOCAINE 2% 100MG/5ML SDV (FOR ANES.) As Ordered ONE; +NS 1,000 ML IV ONE; -OMEP-173 PO; +OMEP-218 PO; +propofoL 500 MG/50 ML VIAL As Ordered ONE
--- OUTSIDE RECORDS SUMMARY | 2021-05-24 08:14 | CCD | Continuity of Care Document ---
Author Author Norberto CORREA M.D. Organization Unknown Address [address] [place] [address], [address] [place] [address] Phone [phone] Care Team Providers Care Glass Embosser Name Role Phone Eamon Shelby MD AUTM [phone] Problems Active Problems Provider Date Essential hypertension Akbar Correa M.D. Onset: 03/25/2021 Social History Type Date Description Comments Sex Unknown ETOH Use 03/26/2021 Denies alcohol use Tobacco Use Reviewed: 03/26/21 Patient has never smoked Smoking Status Reviewed: 03/26/21 Patient has never smoked Tattoo/Piercing 03/26/2021 Tattoo Allergies and adverse reactions Active Allergies Criticality Reaction | Severity Comments Date Augmentin Unable to assess criticality Diarrhea | Moderate 03/26/2021 Medications Active Medications SIG Qnty Indications Ordering Provide r Date Carvedilol 25mg Tablets 1 by mouth everyday Unknown Allopurinol 300mg Tablets 1 by mouth every day Unknown Escitalopram Oxalate 10mg Tablets 1 by mouth every day Unknown Doxazosin Mesylate 2mg Tablets 1 by mouth every day Unknown Immunizations Description No Information Available Vital Signs Date Vital Result Comment 03/26/2021 10:04am Body Temperature 97.6 F Height 77 inches 6'5" Weight 319.00 lb BP Systolic 167 mmHg BP Diastolic 106 mmHg Heart Rate 82 /min BMI (Body Mass Index) 37.8 kg/m2 Results Test Acquired Date Facility Test Result H/L Range Note CBC W/Diff 04/12/[address] [address] [phone] WBC 6.3 K/mm3 4.0-10.0 RBC 3.89 M/mm3 Low 4.50-6.00 HGB 10.5 gm/dL Low 14.0-18.0 HCT 32.0 % Low 42.0-54.0 MCV 82.3 fl 80-96 MCH 27.0 pg 27.0-31.0 MCHC 32.8 g/dL 32.0-36.0 RDW 15.0 % High 10.0-14.5 PLT 359 K/mm3 172-450 MPV 10.2 fl 9.0-13.0 GR% 74.1 % 50-80.0 Ig% 0.0 % 0.0-0.2 Ly% 17.6 % Low 25.0-50.0 Mo% 6.7 % 2.0-10.0 Eo% 1.3 % 0-5.0 Ba% 0.3 % 0.0-2.0 GR# 4.6 K/mm3 2.0-8.00 Ig# 0.0 K/mm3 0.0-0.2 Ly# 1.1 K/mm3 1.0-5.0 Mo# 0.4 K/mm3 0.10-1.20 Eo# 0.1 K/mm3 0.0-0.5 Ba# 0.0 K/mm3 0.0-0.2 Prothrombin Time 04/12/[address] [address] [phone] PTP 11.4 seconds 9.1-11.6 Inr 1.10 High 0.87-1.06 Laboratory test finding 04/12/[address] [address] [phone] Partial Thromboplastin Time 25.5 seconds 21 .2-27.3 1 Complete Metabolic Profile 04/12/[address] [address] [phone] Glu 95 mg/dL 74-106 BUN 7 mg/dL 7-18 Cre 0.65 mg/dL Low 0.70-1.30 Na 144 mmol/L 136-145 K 3.9 mmol/L 3.5-5.1 CL 104 mmol/L 98-107 Co2 30 mmol/L 21-32 CA 9.1 mg/dL 8.5-10.1 Gap 10.0 mmol/L 5-12 GFR >90 mL/min 2 Ast 10 U/L Low 15-37 Alt 25 U/L 16-63 Alk 76 U/L 46-116 Tbili 0.7 mg/dL 0.2-1.0 TP 7.1 g/dL 6.4-8.2 Alb 3.6 gm/dL 3.4-5.0 Laboratory test finding 04/12/[address] [address] [phone] Ceruloplasmin 25.6 mg/dL 16.0-31.0 Hep A AB, Igm Negative Negative 3 Immunoglobulin A, QN, Serum 266 mg/dL 90-386 Hbsag Screen Negative Negative HCV Antibody <0.1 0.0-0.9 4 Hep B Surface AB, Qual Non Reactive . 5 T-Transglutaminase (TTG) Iga <2 U/mL 0-3 6 Anti Nuclear Antibody 04/12/[address] [address] [phone] Anadir Positive High Negative Dnadsab 11 IU/mL High 0-9 7 Rnpab 0.4 AI 0.0-0.9 Smithab <0.2 AI 0.0-0.9 [id number] <0.2 AI 0.0-0.9 Ssa <0.2 AI 0.0-0.9 SSB <0.2 AI 0.0-0.9 Antichromab <0.2 AI 0.0-0.9 Jo1 <0.2 AI 0.0-0.9 Centbab <0.2 AI 0.0-0.9 Anasb Comment . 8 Laboratory test finding 04/12/[address] [address] [phone] Mitochondrial (M2) Antibody <20.0 units 0.0 -20.0 9 1 FAX [phone] 2 GFR IS CALCULATED IN mL/min/ 1.73m2 NORMAL FUNCTION: >90 MILDLY DECREASED: 60-89 MILDY TO MODERATELY DECREASED: 45-59 MODERATELY TO SEVERELY DECREASED: 30-44 SEVERELY DECREASED: 15-29 RENAL FAILURE: <15 3 Performed at: RN - [facility] [address] [id number] Tire Care Manager: Cherry Pearson MD, Phone: [phone] INFCE Result Units: s/co rat io Negative: < 0.8 Indeterminate: 0.8 - 0.9 Positive: > 0.9 The CDC recommends that a positive HCV antibody result be followed up with a HCV Nucleic Acid Amplification test (299100). 5 Non Reactive: Inconsistent w ith immunity, less than 10 mIU/mL Reactive: Consistent with immunity, greater than 9.9 mIU/mL 6 Negative 0 - 3 Weak Positive 4 - 10 Positive >10 Tissue Transglutaminase (tTG) has been identified as the endomysial antigen. Studies have demonstr- ated that endomysial IgA antibodies have over 99% specificity for gluten sensitive enteropathy. Performed at: [address] [id number] Tire Care Manager: Cherry Pearson MD, Phone: [phone] Negative <5 Equivocal 5 - 9 Positive >9 8 Autoantibody Disease Association Condition Frequency -------- --------- Antinuclear Antibody, SLE, mixed connective Direct (AYANA-D) tissue diseases -------- --------- dsDNA SLE 40 - 60% -------- --------- Chromatin Drug induced SLE 90% SLE 48 - 97% -------- --------- SSA (Ro) SLE 25 - 35% Sjogren's Syndrome 40 - 70% Lupus 100% -------- --------- SSB (La) SLE 10% Sjogren's Syndrome 30% ------- --------- Sm (anti-Oconnor) SLE 15 - 30% ------- --------- COAL SHOVELER Mixed Connective Tissue Disease 95% (U1 nRNP, SLE 30 - 50% anti-ribonucleoprotein) Polymyositis and/or Dermatomyositis 20% -------- --------- Scl-70 (antiDNA Scleroderma (diffuse) 20 - 35% topoisomerase) Crest 13% -------- --------- Mariia-1 Polymyositis and/or Dermatomyositis 20 - 40% -------- --------- Centromere B Scleroderma - Crest variant 80% Performed at: [facility] [address] [id number] Tire Care Manager: Cherry Pearson MD, Phone: [phone] Negative 0.0 - 20.0 Equivocal 20.1 - 24.9 Positive >24.9 Mitochondrial (M2) Antibodies are found in 90-96% of patients with primary biliary cirrhosis. Performed at: - [facility] [address] [id number] Tire Care Manager: Cherry Pearson MD, Phone: [phone] Procedures Date Code Description Status 03/26/2021 [address]92[address] Office/Outpatient Established Mo d MDM 30-39 Min Completed Medical Devices Description No Information Available Encounters Type Date Location Provider Dx Diagnosis Office Visit 03/26/2021 10:00a [facility] Akbar crews M.D. 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 Plan of Treatment 03/26/2021 - Akbar Correa M.D.* K75.81 Nonalcoholic steatohepatitis (Wood)* New Labs:* CBC No Diff, Ordered: 03/26/21 * CMP, Ordered: 03/26/21 * PT And PTT No Therpy, Ordered: 03/26/21 * HAV Antibody, Ordered: 03/26/21 * Hepatitis B Surface Ag, Ordered: 03/26/21 * Hepatitis B Surface AB, Ordered: 03/26/21 * HCV Antibody, Ordered: 03/26/21 * Ayana AB Screen, Ordered: 03/26/21 * Anti-factin AB, Ordered: 03/26/21 * Smooth Muscle AB -Anti, Ordered: 03/26/21 * Mitochondrial Antibody, Ordered: 03/26/21 * Ceruloplasmin, Ordered: 03/26/21 * Transglutaminase AB Iga, Ordered: 03/26/21 * Immunoglobulin A (Iga), Ordered: 03/26/21 * Wood Fibrosure, Ordered: 03/26/21 * Comments:* Patient with WOOD on liver biopsy. 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 * Recommendations:* Will order serologies for chronic metabolic and viral disease of the liver. Hepatitis A and B vaccinations should be given to patients without serologic evidence of immunity. Additional vaccines recommended for patients with chronic liver disease include pneumococcal vaccination and standard immunizations recommended for the population in general (eg, influenza, diphtheria, tetanus boosters). Continue weight loss There will be new treatments to address inflammation of WOOD in the near future. 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 Functional Status Description No Information Available Mental Status Description No Information Available Referrals Description No Information Available
--- OUTSIDE RECORDS SUMMARY | 2021-05-24 08:15 | CCD | Continuity of Care Document ---
Author Author Norberto GELLER M.D. Organization Unknown Address [address] [place] [address], [address] [place] [address] Phone [phone] Care Team Providers Care Magazine Hand Name Role Phone Eamon Shelby MD AUTM [phone] Problems Active Problems Provider Date Essential hypertension Akbar Geller M.D. Onset: 03/25/2021 Social History Type Date [...] BMI (Body Mass Index) 37.8 kg/m2 Results Description No Information Available Procedures Description No Information Available Medical Devices Description No Information Available Encounters Description No Information Available Assessments Date Code Description Provider 03/26/2021 K75.81 Nonalcoholic steatohepatitis (Na sh) Akbar Geller M.D. Plan of Treatment 03/26/2021 - Akbar Geller M.D.* K75.81 Nonalcoholic steatohepatitis (Wood)* New Labs:* [...] Ordered: 03/26/21 * Wood Fibrosure, Ordered: 03/26/21 Functional Status Description No Information Available Mental Status Description No Information Available Referrals Description No Information Available
--- OUTSIDE RECORDS SUMMARY | 2021-05-24 08:15 | CCD | Continuity of Care Document ---
Author Author Norberto CORREA M.D. Organization Unknown Address [address] [place] [address], [address] [place] [address] Phone [phone] Care Team Providers Care Millinery Department Manager Name Role Phone Eamon Shelby MD AUTM [phone] Problems Active Problems Provider Date Essential hypertension [...] Result H/L Range Note CBC W/Diff 04/12/[address] [address] [phone] WBC 6.3 K/mm3 4.0-10.0 RBC 3.89 M/mm3 [...] Ba# 0.0 K/mm3 0.0-0.2 Prothrombin Time 04/12/[address] [address] [phone] PTP 11.4 seconds 9.1-11.6 Inr 1.10 High 0.87-1.06 Laboratory test finding 04/12/[address] [address] [phone] Partial Thromboplastin Time 25.5 seconds 21 .2-27.3 1 Complete Metabolic Profile 04/12/[address] [address] [phone] Glu 95 mg/dL 74-106 BUN 7 mg/dL [...] 3.6 gm/dL 3.4-5.0 Laboratory test finding 04/12/[address] [address] [phone] Ceruloplasmin 25.6 mg/dL 16.0-31.0 Hep A AB, Igm Negative Negative 3 Immunoglobulin A, QN, Serum 266 mg/dL 90-386 Hbsag Screen Negative Negative HCV Antibody <0.1 0.0-0.9 4 Hep B Surface AB, Qual Non Reactive . 5 T-Transglutaminase (TTG) Iga <2 U/mL 0-3 6 Anti Nuclear Antibody 04/12/[address] [address] [phone] Anadir Positive High Negative Dnadsab 11 IU/mL High 0-9 7 Rnpab 0.4 AI 0.0-0.9 Smithab <0.2 AI 0.0-0.9 [id number] <0.2 AI 0.0-0.9 Ssa <0.2 AI 0.0-0.9 SSB <0.2 AI 0.0-0.9 Antichromab <0.2 AI 0.0-0.9 Jo1 <0.2 AI 0.0-0.9 Centbab <0.2 AI 0.0-0.9 Anasb Comment . 8 Laboratory test finding 04/12/[address] [address] [phone] Mitochondrial (M2) Antibody <20.0 units 0.0 -20.0 9 1 FAX [phone] 2 GFR IS CALCULATED IN mL/min/ 1.73m2 NORMAL FUNCTION: >90 MILDLY DECREASED: 60-89 MILDY TO MODERATELY DECREASED: 45-59 MODERATELY TO SEVERELY DECREASED: 30-44 SEVERELY DECREASED: 15-29 RENAL FAILURE: <15 3 Performed at: RN - [facility] [address] [id number] Tube Winder Hand: Cherry Pearson MD, Phone: [phone] INFCE Result Units: s/co rat io Negative: < 0.8 Indeterminate: 0.8 - 0.9 Positive: > 0.9 The CDC recommends that a positive HCV antibody result be followed up with a HCV Nucleic Acid Amplification test (612574). 5 Non Reactive: Inconsistent w ith immunity, less than 10 mIU/mL Reactive: Consistent with immunity, greater than 9.9 mIU/mL 6 Negative 0 - 3 Weak Positive 4 - 10 Positive >10 Tissue Transglutaminase (tTG) has been identified as the endomysial antigen. Studies have demonstr- ated that endomysial IgA antibodies have over 99% specificity for gluten sensitive enteropathy. Performed at: [address] [id number] Tube Winder Hand: Cherry Pearson MD, Phone: [phone] Negative <5 Equivocal 5 - 9 [...] (anti-Oconnor) SLE 15 - 30% ------- --------- FARM MECHANIC Mixed Connective Tissue Disease 95% (U1 nRNP, SLE 30 - 50% anti-ribonucleoprotein) Polymyositis and/or Dermatomyositis 20% -------- --------- Scl-70 (antiDNA Scleroderma (diffuse) 20 - 35% topoisomerase) Crest 13% -------- --------- Mariia-1 Polymyositis and/or Dermatomyositis 20 - 40% -------- --------- Centromere B Scleroderma - Crest variant 80% Performed at: [facility] [address] [id number] Tube Winder Hand: Cherry Pearson MD, Phone: [phone] Negative 0.0 - 20.0 Equivocal 20.1 - 24.9 Positive >24.9 Mitochondrial (M2) Antibodies are found in 90-96% of patients with primary biliary cirrhosis. Performed at: - [facility] [address] [id number] Tube Winder Hand: Cherry Pearson MD, Phone: [phone] Procedures Date Code Description Status 03/26/2021 [address] Office/Outpatient Established Mo d MDM 30-39 Min Completed Medical Devices Description No Information Available Encounters Type Date Location Provider Dx Diagnosis Office Visit 03/26/2021 10:00a [facility] Akbar crews M.D. K75.81 Nonalcoholic steatohepatitis (Wood) [...]
--- OUTSIDE RECORDS SUMMARY | 2021-05-24 08:15 | CCD ---
Author Organization Unknown Address [address] [place] [address] Phone [phone] Care Team Providers Care Childcare [facility] Administrator Name Role Phone Rafael Canas Unavailable Unavailable Allergies None recorded. Medications Name Status Start Date Stop Date allopurinol 300 mg tablet Active Not av ailable amlodipine 10 mg tablet Active Not avai lable carvedilol 25 mg tablet Active Not avai lable doxazosin 2 mg tablet Active Not availa ble enoxaparin 40 mg/0.4 mL subcutaneous syr jeri INJECT 0.4 ML 1 SYRINGE UNDER THE SKIN ONCE DAILY FOR 10 DAYS AFTER SURGERY Active Not available escitalopram 10 mg tablet Active Not av ailable glimepiride 2 mg tablet Active Not avai lable metformin 500 mg tablet Active Not avai lable omeprazole 20 mg capsule,delayed release Active Not available omeprazole 40 mg capsule,delayed release TAKE ONE CAPSULE BY MOUTH EVERY DAY 30 MINUTES BEFORE MORNING MEAL FOR 3 MONTHS AFTER SURGERY Active Not available ondansetron [address] ONE TABLET BY MOUTH EVERY 8 HOURS NEEDED FOR NAUSEA Active Not available ondansetron HCl 4 mg tablet TAKE ONE TABLET BY MOUTH EVERY 8 HOURS NEEDED FOR NAUSEA Active Not available OneTouch Delica Plus Lancet 30 gauge USE DIRECTED THREE TIMES A DAY Active Not a vailable OneTouch Ultra Test strips USE DIRECTED THREE TIMES A DAY Active Not a vailable OneTouch Ultra2 Meter USE DIRECTED Active Not available spironolactone 50 mg tablet Active Not available valsartan 320 mg-hydrochlorothiazide 12.5 mg tablet Active Not available Problems None recorded. Procedures None recorded. Results Lab Results Date Name Specimen Result Interpretation Description Value Range Status Address 03/29/2021 SARS CoV 2 RdRp Gene, QL Probe, Respiratory Spec imen Nasopharyngeal ABNORMAL Sars-cov-2 positive negative Final [facility]: [address] [place] [address] Past Encounters 03/29/2021 Exposure to SARS-CoV-2 Rafael Canas MD: [address] [place] [address], Ph. 10/28/2020 Administration of SARS-CoV-2 Antigen Vaccine Rafael Canas MD: [address] [place] [address], Ph. 10/01/2020 Administration of SARS-CoV-2 Antigen Vaccine Rafael Canas MD: [address] [place] [address], Ph. Social History None recorded. Vaccine List Vaccine Type COVID-19, mRNA, LNP-S, PF, 100 mcg/0.5 m L dose 10.5 mL 10.5 mL Plan of Care Reminders Provider Appointments None recorded. Lab None recorded. Referral None recorded. Procedures None recorded. Surgeries None recorded. Imaging None recorded. Vitals None recorded.
--- OUTSIDE RECORDS SUMMARY | 2021-05-24 08:15 | CCD | Continuity of Care Document ---
Author Author Norberto CORREA M.D. Organization Unknown Address [address] [place] [address], [address] [place] [address] Phone [phone] Care Team Providers Care Laboratory Tester Name Role Phone Eamon Shelby MD [facility] [phone] Problems Active Problems Provider Date Essential hypertension [...] kg/m2 Results Description No Information Available Procedures Date Code Description Status 03/26/2021 41036 Office/Outpatient Established Mo d MDM 30-39 Min Completed Medical Devices Description No Information Available Encounters Type Date Location Provider Dx Diagnosis Office Visit 03/26/2021 10:00a [facility] Akbar crews M.D. K75.81 Nonalcoholic steatohepatitis ([place]) [...]
--- OUTSIDE RECORDS SUMMARY | 2021-05-24 08:15 | CCD ---
Author Author [facility] Organization [facility] Address Unknown Phone Unavailable Care Team Providers Care Spray Gun Sizer Name Role Phone Ginna Bernardo Unavailable PROBLEMS Type Condition ICD9-CM Code IOV82-FO Code Onset Dates Condition S tatus W/U Status Risk SNOMED Code Notes Problem Mixed hyperlipidemia E78.2 Active confirmed 138864579 Problem Gastroesophageal reflux disease, esophagitis pre sence not specified K21.9 Active confirmed 647243096 Problem Morbid obesity due to excess calories E66.01 Ac tive confirmed 868914520 Problem Type 2 diabetes mellitus wit hout complication, without long-term current use of insulin E11.9 Active confirmed 633594801 Problem Hypertensive heart disease without heart failure I 11.9 Active confirmed 13133481 Problem Gout, unspecified M10.9 Active confirmed 90 166742 Problem Erectile dysfunction, unspecified erectile dysfunction typ e N52.9 Active confirmed 663850746 Problem Anxiety F41.9 Active confirmed 84341708 Problem Depression, unspecified depression type F32.9 Active confirmed 21840417 ALLERGIES Allergen (clinical drug ingredient) Drug/Non Drug Allergy do cumented on EMR Reaction Allergy Type Onset Date Status amoxicillin / clavulanate Augmentin([facility] Code:[address]-58) Diar nataly Drug Allergy Active ENCOUNTERS from 1983 to 2021-04-14 Encounter Location Date Provider Diagnosis [facility] [phone] [place] [address] Mar, Ginna Bernardo IMMUNIZATIONS Vaccine Route Administration Date Status Influenza 6mo & up Fluzone IM Intramuscular Mar 23, 2018 Admi nistered Influenza 6mo & up Fluzone IM Intramuscular May 17, 2017 Admi nistered Influenza 6mo & up Fluzone Unknown Apr 19, 2016 Admin istered Influenza 6mo & up Fluzone IM Mar 21, 2012 Admin istered SOCIAL HISTORY Tobacco Use: Social History Observation Description Date Details (start date - stop date) Former Smoker Sex Assigned At : Social History Observation Description Sex Assigned At Unknown Education: Question Answer Notes Level of Education: Not Answered Audit Question Answer Notes Total Score: 3 Interpretation: Alcohol Education Language: Question Answer Notes Languages spoken: Bulgarian Jew: Question Answer Notes Jew 99 Other Sexual Hx: Question Answer Notes Had sex in the last 12 months (vaginal, oral, or anal)? Yes Have you ever had an STD? No with Women only Use protection? Yes How often? All of the time Drug and Alcohol Question Answer Notes Total Score: 0 Interpretation: No problems reported Alcohol Screening: Question Answer Notes Did you have a drink containing alcohol in the past year? Ye s Points 2 Interpretation Negative How often did you have six or more drinks on one occas ion in the past year? Less than monthly (1 point) How many drinks did you have on a typica l day when you were drinking in the past year? 1 or 2 (0 points) How often did you have a drink containing alcohol in t he past year? Monthly or less (1 point) BMI Care Goal Follow-Up Question Answer Notes Above Normal BMI Follow-Up Giving encouragement to exercise Tobacco Use: Question Answer Notes Are you a: former smoker How long has it been since you last smoked? 1-5 years REASON FOR REFERRAL No Information VITAL SIGNS No information MEDICATIONS Medication SIG (Take, Route, Frequency, Duration) Notes Start Da te End Date Status Omeprazole 20 MG TAKE 1 CAPSULE DAILY orally Daily for 90 day(s) Active Lancets - as directed _ three times daily for 30 days Dx: Nov, Not-Taking Multivitamin Adults - 2 tabs Orally Daily Active Vitamin B12 1000 MCG as directed Orally Daily Active Glimepiride 2 MG 1 tablet with breakfast or t he first main meal of the day Orally Once a day for 90 day(s) Nov, Not-Taking Allopurinol 300 MG TAKE 1 TABLET DAILY Orally Once a day for 90 days Active Glucometer as directed _ _ for 30 days Dx: Nov, Not-Taking Blood Glucose Test - as directed In Vitro three times daily for 30 days Dx: Nov, Not-Taking Spironolactone 50 MG 1 tablet Orally Once a day Not-Taking Doxazosin Mesylate 2 MG 1 tablet Orally Once a day Active Valsartan-hydroCHLOROthiazide 320-12.5 MG TAKE 1 TABLET DAILY Orally Not-Taking metFORMIN HCl 500 MG take 1 tab orally bid for 90 day(s) Not-Taking Amlodipine Besylate 10 MG 1 tablet once a day orally 9 0 day(s) orally Daily for 10 day(s) Not-Taking Carvedilol 25 mg 1 tablet Orally Twice a day Active Escitalopram Oxalate 10 MG TAKE 1 TABLET DAILY Orally Once a day for 90 day(s) Active PROCEDURES No Information RESULTS No Results REASON FOR VISIT No Information MEDICAL (GENERAL) HISTORY Type Description Date Medical History Hypertension-Dr Murphy Medical History Acne Medical History Obesity Medical History Gerd Medical History Abd pain Medical History Diabetes Medical History Diabetes mellitus without me ntion of complication, type II or unspecified type, not stated as uncontrolled Medical History 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 Medical History Nephrolithiasis Surgical History Stomach scope 2009 Surgical History Liver biopsy 10/2010 Surgical History Gastric bypass 11/19/2020 Hospitalization History Dehydration 02/24/2012 [facility] Goals Section No Information Health Concerns No Information MEDICAL EQUIPMENT No Information MENTAL STATUS No Information FUNCTIONAL STATUS No Information ASSESSMENTS No Information PLAN OF TREATMENT Medication Medication Name Sig Start Date Stop Date Omeprazole 20 MG TAKE 1 CAPSULE DAILY orally Daily for 90 day(s) Next Appt Details Provider Name:Ginna Bernardo, 2021-04 03:00:00 PM, [facility] [address] , , [place], [address], Insurance Providers Payer Name Payer Address Payer Phone Insured Name Patient Relati onship to Insured Coverage Start Date Coverage End Date [employer] [address] [address] [facility] T [id number] [employer] [place] [facility] PPO [phone] [facility] [id number] [employer] [place] self
--- OUTSIDE RECORDS SUMMARY | 2021-05-24 08:17 | CCD ---
Author Author [facility] Address Unknown Phone Unavailable Support Name Relationship Address Phone BALDERAS Next Of Kin [address] [facility] [address] [place] [address] DONOVAN MCFARLAND Next Of Kin [address] [facility] [address] [place] [address] ABEBA MCFARLAND Next Of Kin [address] [facility] [address] [place] [address] KATINA MCFARLAND Next Of Kin Unknown Unavailable ABEBA KIM Next Of Kin [address] [facility] [address] [place] [address] Unavailable BISMARCK FIRE DEPT Next Of Kin [id number] [facility] [address] [place] [address] CROWLEYFDS Next Of Kin [address] [place] [address] DONOVAN KIM Next Of Kin [address] [facility] [address] [place] [address] EDUARDO MCFARLAND Next Of Kin [id number] [address] [employer] Next Of Kin [address] [place] [address] COLBY MCFARLAND Next Of Kin [address] [place] [phone] ABEBA MCFARLAND [address] [place] [address] Unavailable Colby Mcfarland [address] [place] [address] Unavailable Colby Mora [address] [place] [address] Unavailable Care Team Providers Care Beef Trimmer Name Role Phone Elian Canas MD Unavailable Unavailable Elian Canas MD Unavailable Unavailable Elian Canas MD Unavailable Unavailable Elian Canas MD Unavailable Unavailable Elian Canas MD Unavailable Unavailable Elian Canas MD Unavailable Unavailable Elian Canas MD Unavailable Unavailable Elian Canas MD Unavailable Unavailable Elian Canas MD Unavailable Unavailable Elian Canas MD Unavailable Unavailable Elian Canas MD Unavailable Unavailable Elian Canas MD Unavailable Unavailable Elian Canas MD Unavailable Unavailable Elian Canas MD Unavailable Unavailable Elian Canas MD Unavailable Unavailable Elian Canas MD Unavailable Unavailable Elian Canas MD Unavailable Unavailable Elian Canas MD Unavailable Unavailable Elian Canas MD Unavailable Unavailable Elian Canas MD Unavailable Unavailable Elian Canas MD Unavailable Unavailable Elian Canas MD Unavailable Unavailable Elian Canas MD Unavailable Unavailable Elian Canas MD Unavailable Unavailable Elian Canas MD Unavailable Unavailable Elian Canas MD Unavailable Unavailable Elian Canas MD Unavailable Unavailable Elian Canas MD Unavailable Unavailable Elian Canas MD Unavailable Unavailable Elian Canas MD Unavailable Unavailable Elian Canas MD Unavailable Unavailable Elian Canas MD Unavailable Unavailable Elian Canas MD Unavailable Unavailable Elian Canas MD Unavailable Unavailable Elian Canas MD Unavailable Unavailable Elian Canas MD Unavailable Unavailable Elian Canas MD Unavailable Unavailable Elian Canas MD Unavailable Unavailable Elian Canas MD Unavailable Unavailable Elian Canas MD Unavailable Unavailable Elian Canas MD Unavailable Unavailable Elian Canas MD Unavailable Unavailable Elian Canas MD Unavailable Unavailable Elian Canas MD Unavailable Unavailable Elian Canas MD Unavailable Unavailable Elian Canas MD Unavailable Unavailable Elian Canas MD Unavailable Unavailable Elian Canas MD Unavailable Unavailable Elian Canas MD Unavailable Unavailable Elian Canas MD Unavailable Unavailable Elian Canas MD Unavailable Unavailable Elian Canas MD Unavailable Unavailable Elian Canas MD Unavailable Unavailable Elian Canas MD Unavailable Unavailable Elian Canas MD Unavailable Unavailable Elian Canas MD Unavailable Unavailable Elian Canas MD Unavailable Unavailable Elian Canas MD Unavailable Unavailable Elian Canas MD Unavailable Unavailable Elian Canas MD Unavailable Unavailable Elian Canas MD Unavailable Unavailable Elian Canas MD Unavailable Unavailable Elian Canas MD Unavailable Unavailable Elian Canas MD Unavailable Unavailable Elian Canas MD Unavailable Unavailable Elian Canas MD Unavailable Unavailable Elian Canas MD Unavailable Unavailable Elian Canas MD Unavailable Unavailable Elian Canas MD Unavailable Unavailable Elian Canas MD Unavailable Unavailable Elian Canas MD Unavailable Unavailable Elian Canas MD Unavailable Unavailable Elian Canas MD Unavailable Unavailable Elian Canas MD Unavailable Unavailable Elian Canas MD Unavailable Unavailable Elian Canas MD Unavailable Unavailable Elian Canas MD Unavailable Unavailable Elian Canas MD Unavailable Unavailable Elian Canas MD Unavailable Unavailable Elian Canas MD Unavailable Unavailable Canas, Elian Hall MD Unavailable Unavailable Canas, Elian Hall MD Unavailable Unavailable Canas, Elian Hall MD Unavailable Unavailable Canas, Elian Hall MD Unavailable Unavailable Canas, Elian Hall MD Unavailable Unavailable Canas, Elian Hall MD Unavailable Unavailable Canas, Elian Hall MD Unavailable Unavailable Canas, Elian Hall MD Unavailable Unavailable Canas, Elian Hall MD Unavailable Unavailable Canas, Elian Hall MD Unavailable Unavailable Canas, Elian Hall MD Unavailable Unavailable Canas, Elian Hall MD Unavailable Unavailable Canas, Elian Hall MD Unavailable Unavailable Canas, Elian Hall MD Unavailable Unavailable Higuera, Mela PA-C Unavailable Unavailable Higuera, Mela PA-C Unavailable Unavailable Higuera, Mela PA-C Unavailable Unavailable Higuera, Mela PA-C Unavailable Unavailable Higuera, Mela PA-C Unavailable Unavailable Higuera, Mela PA-C Unavailable Unavailable Higuera, Mela PA-C Unavailable Unavailable Higuera, Mela PA-C Unavailable Unavailable Higuera, Mela PA-C Unavailable Unavailable Higuera, Mela PA-C Unavailable Unavailable Higuera, Mela PA-C Unavailable Unavailable Higuera, Mela PA-C Unavailable Unavailable Higuera, Mela PA-C Unavailable Unavailable Higuera, Mela PA-C Unavailable Unavailable Higuera, Mela PA-C Unavailable Unavailable Higuera, Mela PA-C Unavailable Unavailable Higuera, Mela PA-C Unavailable Unavailable Higuera, Mela PA-C Unavailable Unavailable Higuera, Mela PA-C Unavailable Unavailable Higuera, Mela PA-C Unavailable Unavailable Higuera, Mela PA-C Unavailable Unavailable Higuera, Mela PA-C Unavailable Unavailable Higuera, Mela PA-C Unavailable Unavailable Afsaneh, Cheryl Knutson MD Unavailable Unavailable Afsaneh, Cheryl Knutson MD Unavailable Unavailable Afsaneh, Cheryl Knutson MD Unavailable Unavailable Afsaneh, Cheryl Knutson MD Unavailable Unavailable Afsaneh, Cheryl Knutson MD Unavailable Unavailable Afsaneh, Cheryl Knutson MD Unavailable Unavailable Afsaneh, Cheryl Knutson MD Unavailable Unavailable Afsaneh, Cheryl Knutson MD Unavailable Unavailable Afsaneh, Cheryl Knutson MD Unavailable Unavailable Afsaneh, Cheryl Knutson MD Unavailable Unavailable Afsaneh, Cheryl Knutson MD Unavailable Unavailable Afsaneh, Cheryl Knutson MD Unavailable Unavailable Afsaneh, Cheryl Knutson MD Unavailable Unavailable Afsaneh, Cheryl Knutson MD Unavailable Unavailable Afsaneh, Cheryl Knutson MD Unavailable Unavailable Afsaneh, Cheryl Knutson MD Unavailable Unavailable Afsaneh, Cheryl Knutson MD Unavailable Unavailable Afsaneh, Cheryl Knutson MD Unavailable Unavailable Afsaneh, Cheryl Knutson MD Unavailable Unavailable Afsaneh, Cheryl Knutson MD Unavailable Unavailable Afsaneh, Cheryl Knutson MD Unavailable Unavailable Afsaneh, A Eamon NGUYEN Unavailable Unavailable Afsaneh, A Eamon NGUYEN Unavailable Unavailable Afsaneh, A Eamon NGUYEN Unavailable Unavailable Afsaneh, A Eamon NGUYEN Unavailable Unavailable Afsaneh, A Eamon NGUYEN Unavailable Unavailable Afsaneh, A Eamon NGUYEN Unavailable Unavailable Afsaneh, A Eamon NGUYEN Unavailable Unavailable Afsaneh, A Eamon NGUYEN Unavailable Unavailable Afsaneh, A Eamon NGUYEN Unavailable Unavailable Afsaneh, A Eamon NGUYEN Unavailable Unavailable Afsaneh, A Eamon NGUYEN Unavailable Unavailable Afsaneh, A Eamon NGUYEN Unavailable Unavailable Afsaneh, A Eamon NGUYEN Unavailable Unavailable Afsaneh, A Eamon NGUYEN Unavailable Unavailable Afsaneh, A Eamon NGUYEN Unavailable Unavailable Afsaneh, A Eamon NGUYEN Unavailable Unavailable Afsaneh, A Eamon NGUYEN Unavailable Unavailable Afsaneh, A Eamon NGUYEN Unavailable Unavailable Afsaneh, A Eamon NGUYEN Unavailable Unavailable Afsaneh, A Eamon NGUYEN Unavailable Unavailable Afsaneh, A Eamon NGUYEN Unavailable Unavailable Afsaneh, A Eamon NGUYEN Unavailable Unavailable Afsaneh, A Eamon NGUYEN Unavailable Unavailable Afsaneh, A Eamon NGUYEN Unavailable Unavailable Afsaneh, A Eamon NGUYEN Unavailable Unavailable Afsaneh, A Eamon NGUYEN Unavailable Unavailable Afsaneh, A Eamon NGUYEN Unavailable Unavailable Afsaneh, A Eamon NGUYEN Unavailable Unavailable Afsaneh, A Eamon NGUYEN Unavailable Unavailable Afsaneh, A Eamon NGUYEN Unavailable Unavailable Afsaneh, A Eamon NGUYEN Unavailable Unavailable Afsaneh, A Eamon NGUYEN Unavailable Unavailable Afsaneh, A Eamon NGUYEN Unavailable Unavailable Afsaneh, A Eamon NGUYEN Unavailable Unavailable Afsaneh, A Eamon NGUYEN Unavailable Unavailable Afsaneh, A Eamon NGUYEN Unavailable Unavailable Afsaneh, A Eamon NGUYEN Unavailable Unavailable Afsaneh, A Eamon NGYUEN Unavailable Unavailable Afsaneh, A Eamon NGUYEN Unavailable Unavailable Afsaneh, A Eamon NGUYEN Unavailable Unavailable Afsaneh, A Eamon NGUYEN Unavailable Unavailable Afsaneh, A Eamon NGUYEN Unavailable Unavailable Afsaneh, A Eamon NGUYEN Unavailable Unavailable Afsaneh, A Eamon NGUYEN Unavailable Unavailable Afsaneh, A Eamon NGUYEN Unavailable Unavailable Afsaneh, A Eamon NGUYEN Unavailable Unavailable Afsaneh, A Eamon NGUYEN Unavailable Unavailable Afsaneh, A Eamon NGUYEN Unavailable Unavailable Afsaneh, A Eamon NGUYEN Unavailable Unavailable Afsaneh, A Eamon NGUYEN Unavailable Unavailable Afsaneh, A Eamon NGUYEN Unavailable Unavailable Afsaneh, A Eamon NGUYEN Unavailable Unavailable Afsaneh, A Eamon NGUYEN Unavailable Unavailable Afsaneh, A Eamon NGUYEN Unavailable Unavailable Afsaneh, A Eamon NGUYEN Unavailable Unavailable Afsaneh, A Eamon NGUYEN Unavailable Unavailable Afsaneh, A Eamon NGUYEN Unavailable Unavailable Afsaneh, A Eamon NGUYEN Unavailable Unavailable Afsaneh, A Eamon NGUYEN Unavailable Unavailable Afsaneh, A Eamon NGUYEN Unavailable Unavailable Afsaneh, A Eamon NGUYEN Unavailable Unavailable Afsaneh, A Eamon NGUYEN Unavailable Unavailable Afsaneh, A Eamon NGUYEN Unavailable Unavailable Afsaneh, A Eamon MD Unavailable Unavailable Afsaneh, Cheryl Knutson MD Unavailable Unavailable Afsaneh, A Eamon NGUYEN Unavailable Unavailable Afsaneh, Cheryl Knutson MD Unavailable Unavailable Afsaneh, Cheryl Knutson MD Unavailable Unavailable Afsaneh, Cheryl Knutson MD Unavailable Unavailable Afsaneh, Cheryl Knutson MD Unavailable Unavailable Afsaneh, A Eamon NGUYEN Unavailable Unavailable Afsaneh, A Eamon NGUYEN Unavailable Unavailable Afsaneh, A Eamon NGUYEN Unavailable Unavailable Afsaneh, A Eamon NGUYEN Unavailable Unavailable Afsaneh, A Eamon NGUYEN Unavailable Unavailable Afsaneh, A Eamon NGUYEN Unavailable Unavailable Afsaneh, A Eamon NGUYEN Unavailable Unavailable Afsaneh, A Eamon NGUYEN Unavailable Unavailable Afsaneh, A Eamon NGUYEN Unavailable Unavailable Afsaneh, A Eamon NGUYEN Unavailable Unavailable Afsaneh, A Eamon NGUYEN Unavailable Unavailable Afsaneh, A Eamon NGUYEN Unavailable Unavailable Afsaneh, A Eamon NGUYEN Unavailable Unavailable Afsaneh, A Eamon NGUYEN Unavailable Unavailable Afsaneh, A Eamon NGUYEN Unavailable Unavailable Afsaneh, Cheryl Knutson MD Unavailable Unavailable Afsaneh, Cheryl Knutson MD Unavailable Unavailable Afsaneh, Cheryl Knutson MD Unavailable Unavailable Afsaneh, Cheryl Knutson MD Unavailable Unavailable Raymon Correa MD Unavailable Unavailable Ramyon Correa MD Unavailable Unavailable Raymon Correa MD Unavailable Unavailable Raymon Correa MD Unavailable Unavailable Raymon Correa MD Unavailable Unavailable Raymon Correa MD Unavailable Unavailable Raymon Correa MD Unavailable Unavailable Raymon Correa MD Unavailable Unavailable Raymon Correa MD Unavailable Unavailable Raymon Correa MD Unavailable Unavailable Raymon Correa MD Unavailable Unavailable Raymon Correa MD Unavailable Unavailable Raymon Correa MD Unavailable Unavailable Raymon Correa MD Unavailable Unavailable Raymon Correa MD Unavailable Unavailable Raymon Correa MD Unavailable Unavailable Raymon Correa MD Unavailable Unavailable Raymon Correa MD Unavailable Unavailable Raymon Correa MD Unavailable Unavailable Raymon Correa MD Unavailable Unavailable Raymon Correa MD Unavailable Unavailable Raymon Correa MD Unavailable Unavailable Raymon Correa MD Unavailable Unavailable Raymon Correa MD Unavailable Unavailable Raymon Correa MD Unavailable Unavailable Raymon Correa MD Unavailable Unavailable Raymon Correa MD Unavailable Unavailable Raymon Correa MD Unavailable Unavailable Raymon Correa MD Unavailable Unavailable Raymon Correa MD Unavailable Unavailable Raymon Correa MD Unavailable Unavailable Raymon Correa MD Unavailable Unavailable Raymon Correa MD Unavailable Unavailable Raymon Correa MD Unavailable Unavailable Raymon Correa MD Unavailable Unavailable Raymon Correa MD Unavailable Unavailable Raymon Correa MD Unavailable Unavailable Raymon Correa MD Unavailable Unavailable Raymon Correa MD Unavailable Unavailable Raymon Correa MD Unavailable Unavailable Raymon Correa MD Unavailable Unavailable Raymon Correa MD Unavailable Unavailable Raymon Correa MD Unavailable Unavailable Raymon Correa MD Unavailable Unavailable Raymon Correa MD Unavailable Unavailable Raymon Correa MD Unavailable Unavailable Raymon Correa MD Unavailable Unavailable Raymon Correa MD Unavailable Unavailable Raymon Correa MD Unavailable Unavailable Raymon Correa MD Unavailable Unavailable Raymon Correa MD Unavailable Unavailable Raymon Correa MD Unavailable Unavailable Raymon Correa MD Unavailable Unavailable Raymon Correa MD Unavailable Unavailable Raymon Correa MD Unavailable Unavailable Raymon Correa MD Unavailable Unavailable Raymon Correa MD Unavailable Unavailable Raymon Correa MD Unavailable Unavailable Raymon Correa MD Unavailable Unavailable Raymon Correa MD Unavailable Unavailable Raymon Correa MD Unavailable Unavailable Raymon Correa MD Unavailable Unavailable Raymon Correa MD Unavailable Unavailable Raymon Correa MD Unavailable Unavailable SYMENOW, G CHRISTOPHER PA Unavailable Unavailable SYMENOW, G CHRISTOPHER PA Unavailable Unavailable SYMENOW, G CHRISTOPHER PA Unavailable Unavailable SYMENOW, G CHRISTOPHER PA Unavailable Unavailable SYMENOW, G CHRISTOPHER PA Unavailable Unavailable SYMENOW, G CHRISTOPHER PA Unavailable Unavailable SYMENOW, G CHRISTOPHER PA Unavailable Unavailable SYMENOW, G CHRISTOPHER PA Unavailable Unavailable SYMENOW, G CHRISTOPHER PA Unavailable Unavailable SYMENOW, G CHRISTOPHER PA Unavailable Unavailable SYMENOW, G CHRISTOPHER PA Unavailable Unavailable SYMENOW, G CHRISTOPHER PA Unavailable Unavailable SYMENOW, G CHRISTOPHER PA Unavailable Unavailable SYMENOW, G CHRISTOPHER PA Unavailable Unavailable SYMENOW, G CHRISTOPHER PA Unavailable Unavailable SYMENOW, G CHRISTOPHER PA Unavailable Unavailable Rydberg, Katerina PA Unavailable Unavailable Rydberg, Katerina PA Unavailable Unavailable Rydberg, Katerina PA Unavailable Unavailable Rydberg, Katerina PA Unavailable Unavailable Rydberg, Katerina PA Unavailable Unavailable Rydberg, Katerina PA Unavailable Unavailable Rydberg, Katerina PA Unavailable Unavailable Rydberg, Katerina PA Unavailable Unavailable Rydberg, Katerina PA Unavailable Unavailable Rydberg, Katerina PA Unavailable Unavailable Rydberg, Katerina PA Unavailable Unavailable Rydberg, Katerina PA Unavailable Unavailable Rydberg, Katerina PA Unavailable Unavailable Rydberg, Katerina PA Unavailable Unavailable Rydberg, Katerina PA Unavailable Unavailable Rydberg, Katerina PA Unavailable Unavailable Rydberg, Katerina PA Unavailable Unavailable Rydberg, Katerina PA Unavailable Unavailable Rydberg, Katerina PA Unavailable Unavailable Rydberg, Ktaerina PA Unavailable Unavailable Rydberg, Katerina PA Unavailable Unavailable Rydberg, Katerina PA Unavailable Unavailable Rydberg, Katerina PA Unavailable Unavailable Commey, Izaiah Unavailable Unavailable Commey, Izaiah Unavailable Unavailable Commey, Izaiah Unavailable Unavailable Commey, Izaiah Unavailable Unavailable Commey, Izaiah Unavailable Unavailable Commey, Izaiah Unavailable Unavailable Commey, Izaiah Unavailable Unavailable Commey, Izaiah Unavailable Unavailable Commey, Izaiah Unavailable Unavailable Commey, Izaiah Unavailable Unavailable Commey, Izaiah Unavailable Unavailable Commey, Izaiah Unavailable Unavailable Commey, Izaiah Unavailable Unavailable Commey, Izaiah Unavailable Unavailable Commey, Izaiah Unavailable Unavailable Commey, Izaiah Unavailable Unavailable Commey, Izaiah Unavailable Unavailable Commey, Izaiah Unavailable Unavailable Commey, Izaiah Unavailable Unavailable Commey, Izaiah Unavailable Unavailable Commey, Izaiah Unavailable Unavailable Commey, Izaiah Unavailable Unavailable Commey, Izaiah Unavailable Unavailable Commey, Izaiah Unavailable Unavailable Commey, Izaiah Unavailable Unavailable Commey, Izaiah Unavailable Unavailable Commey, Izaiah Unavailable Unavailable Commey, Izaiah Unavailable Unavailable Commey, Izaiah Unavailable Unavailable Commey, Izaiah Unavailable Unavailable Commey, Izaiah Unavailable Unavailable DAVON, EAMON DELMA PA Unavailable Unavailable DAVON, EAMON DELMA PA Unavailable Unavailable DAVON, EAMON DELMA PA Unavailable Unavailable DAVON, EAMON DELMA PA Unavailable Unavailable DAVON, EAMON DELMA PA Unavailable Unavailable DAVON, EAMON DELMA PA Unavailable Unavailable DAVON, EAMON DELMA PA Unavailable Unavailable DAVON, EAMON DELMA PA Unavailable Unavailable DAVON, EAMON DELMA PA Unavailable Unavailable DAVON, EAMON DELMA PA Unavailable Unavailable DAVON, EAMON DELMA PA Unavailable Unavailable DAVON, EAMON DELMA PA Unavailable Unavailable DAVON, EAMON DELMA PA Unavailable Unavailable DAVON, EAMON DELMA PA Unavailable Unavailable DAVON, EAMON DELMA PA Unavailable Unavailable DAVON, EAMON DELMA PA Unavailable Unavailable DAVON, EAMON DELMA PA Unavailable Unavailable DAVON, EAMON DELMA PA Unavailable Unavailable DAVON, EAMON DELMA PA Unavailable Unavailable DAVON, EAMON DELMA PA Unavailable Unavailable EAMON MAYS Unavailable Unavailable EAMON MAYS Unavailable Unavailable Ryan Murphy MD Unavailable Unavailable Ryan Murphy MD Unavailable Unavailable Ryan Murphy MD Unavailable Unavailable Ryan Murphy MD Unavailable Unavailable Ryan Murphy MD Unavailable Unavailable Ryan Murphy MD Unavailable Unavailable Ryan Murphy MD Unavailable Unavailable Ryan Murphy MD Unavailable Unavailable Ryan Murphy MD Unavailable Unavailable Ryan Murphy MD Unavailable Unavailable Ryan Murphy MD Unavailable Unavailable Ryan Murphy MD Unavailable Unavailable Ryan Murphy MD Unavailable Unavailable Ryan Murphy MD Unavailable Unavailable Ryan Murphy MD Unavailable Unavailable Ryan Murphy MD Unavailable Unavailable Ryan Murphy MD Unavailable Unavailable Ryan Murphy MD Unavailable Unavailable Ryan Murphy MD Unavailable Unavailable Ryan Murphy MD Unavailable Unavailable Ryan Murphy MD Unavailable Unavailable Ryan Murphy MD Unavailable Unavailable Ryan Murphy MD Unavailable Unavailable Ryan Murphy MD Unavailable Unavailable Ryan Murphy MD Unavailable Unavailable Ryan Murphy MD Unavailable Unavailable Ryan Murphy MD Unavailable Unavailable Ryan Murphy MD Unavailable Unavailable Ryan Murphy MD Unavailable Unavailable Ryan Murphy MD Unavailable Unavailable Ryan Murphy MD Unavailable Unavailable Ryan Murphy MD Unavailable Unavailable Ryan Murphy MD Unavailable Unavailable Ryan Murphy MD Unavailable Unavailable Ryan Murphy MD Unavailable Unavailable Ryan Murphy MD Unavailable Unavailable Ryan Murphy MD Unavailable Unavailable Ryan Murphy MD Unavailable Unavailable Ryan Murphy MD Unavailable Unavailable Ryan Murphy MD Unavailable Unavailable Ryan Murphy MD Unavailable Unavailable Ryan Murphy MD Unavailable Unavailable Ryan Murphy MD Unavailable Unavailable Ryan Murphy MD Unavailable Unavailable Ryan Murphy MD Unavailable Unavailable Ryan Murphy MD Unavailable Unavailable Ryan Murphy MD Unavailable Unavailable SleRashaad simsjtech Unavailable Unavailable SlezkaRashaadjtech Unavailable Unavailable Slezka Vojtech MD Unavailable Unavailable Slezka Vojtech MD Unavailable Unavailable Slezka, Vojtech MD Unavailable Unavailable Slezka, Vojtech MD Unavailable Unavailable Slezka, Vojtech MD Unavailable Unavailable Slezka, Vojtech MD Unavailable Unavailable Slezka, Vojtech MD Unavailable Unavailable Slezka, Vojtech MD Unavailable Unavailable Slezka, Vojtech MD Unavailable Unavailable SleRashaad simsjtech Unavailable Unavailable Ryan Murphy MD Unavailable Unavailable Raymon Correa MD Unavailable Unavailable Raymon Correa MD Unavailable Unavailable Raymon Correa MD Unavailable Unavailable Raymon Correa MD Unavailable Unavailable Raymon Correa MD Unavailable Unavailable Raymon Correa MD Unavailable Unavailable Raymon Correa MD Unavailable Unavailable Raymon Correa MD Unavailable Unavailable Raymon Correa MD Unavailable Unavailable Raymon Correa MD Unavailable Unavailable Raymon Correa MD Unavailable Unavailable Raymon Correa MD Unavailable Unavailable Raymon Correa MD Unavailable Unavailable Raymon Correa MD Unavailable Unavailable Raymon Correa MD Unavailable Unavailable Raymon Correa MD Unavailable Unavailable Rayomn Correa MD Unavailable Unavailable Raymon Correa MD Unavailable Unavailable Raymon Correa MD Unavailable Unavailable Raymon Correa MD Unavailable Unavailable Raymon Correa MD Unavailable Unavailable Raymon Correa MD Unavailable Unavailable Raymon Correa MD Unavailable Unavailable Raymon Correa MD Unavailable Unavailable Raymon Correa MD Unavailable Unavailable Raymon Correa MD Unavailable Unavailable Raymon Correa MD Unavailable Unavailable Raymon Correa MD Unavailable Unavailable Raymon Correa MD Unavailable Unavailable Raymon Correa MD Unavailable Unavailable Raymon Correa MD Unavailable Unavailable Raymon Correa MD Unavailable Unavailable Raymon Correa MD Unavailable Unavailable Raymon Correa MD Unavailable Unavailable Raymon Correa MD Unavailable Unavailable Raymon Correa MD Unavailable Unavailable Raymon Correa MD Unavailable Unavailable Raymon Correa MD Unavailable Unavailable Raymon Correa MD Unavailable Unavailable Raymon Correa MD Unavailable Unavailable Raymon Correa MD Unavailable Unavailable Raymon Correa MD Unavailable Unavailable Raymon Correa MD Unavailable Unavailable Raymon Correa MD Unavailable Unavailable Raymon Correa MD Unavailable Unavailable Raymon Correa MD Unavailable Unavailable Raymon Correa MD Unavailable Unavailable Raymon Correa MD Unavailable Unavailable Raymon Correa MD Unavailable Unavailable Raymon Correa MD Unavailable Unavailable Raymon Correa MD Unavailable Unavailable Raymon Correa MD Unavailable Unavailable Raymon Correa MD Unavailable Unavailable Raymon Correa MD Unavailable Unavailable Sunny, Raymon Webber MD Unavailable Unavailable Sunny, Raymon Webber MD Unavailable Unavailable Sunny, Raymon Webber MD Unavailable Unavailable Sunny, Raymon Webber MD Unavailable Unavailable Sunny, Raymon Webber MD Unavailable Unavailable Sunny, Raymon Webber MD Unavailable Unavailable Sunny, Raymon Webber MD Unavailable Unavailable Sunny, Raymon Webber MD Unavailable Unavailable Sunny, Raymon Webber MD Unavailable Unavailable Sunny, Raymon Webber MD Unavailable Unavailable Afsaneh, A Eamon NGUYEN Unavailable Unavailable Afsaneh, Cheryl Knutson MD Unavailable Unavailable Afsaneh, Cheryl Knutson MD Unavailable Unavailable Afsaneh, Cheryl Knutson MD Unavailable Unavailable Afsaneh, Cheryl Knutson MD Unavailable Unavailable Afsaneh, Cheryl Knutson MD Unavailable Unavailable Afsaneh, Cheryl Knutson MD Unavailable Unavailable Afsaneh, Cheryl Knutson MD Unavailable Unavailable Afsaneh, A Eamon NGUYEN Unavailable Unavailable Afsaneh, Cheryl Knutson MD Unavailable Unavailable Afsaneh, Cheryl Knutson MD Unavailable Unavailable Afsaneh, Cheryl Knutson MD Unavailable Unavailable Afsaneh, Cheryl Knutson MD Unavailable Unavailable Afsaneh, Cheryl Knutson MD Unavailable Unavailable Afsaneh, Cheryl Knutson MD Unavailable Unavailable Afsaneh, Cheryl Knutson MD Unavailable Unavailable Afsaneh, Cheryl Knutson MD Unavailable Unavailable Afsaneh, Cheryl Knutson MD Unavailable Unavailable Afsaneh, Cheryl Knutson MD Unavailable Unavailable Afsaneh, Cheryl Knutson MD Unavailable Unavailable Afsaneh, Cheryl Knutson MD Unavailable Unavailable Afsaneh, Cheryl Knutson MD Unavailable Unavailable Afsaneh, Cheryl Knutson MD Unavailable Unavailable Afsaneh, Cheryl Knutson MD Unavailable Unavailable Afsaneh, Cheryl Knutson MD Unavailable Unavailable Afsaneh, Cheryl Knutson MD Unavailable Unavailable Afsaneh, Cheryl Knutson MD Unavailable Unavailable Afsaneh, Cheryl Knutson MD Unavailable Unavailable Afsaneh, Cheryl Knutson MD Unavailable Unavailable Afsaneh, Cheryl Knutson MD Unavailable Unavailable Afsaneh, Cheryl Knutson MD Unavailable Unavailable Afsaneh, Cheryl Knutson MD Unavailable Unavailable Afsaneh, Cheryl Knutson MD Unavailable Unavailable Afsaneh, Cheryl Knutson MD Unavailable Unavailable Afsaneh, Cheryl Knutson MD Unavailable Unavailable Afsaneh, Cheryl Knutson MD Unavailable Unavailable Afsaneh, Cheryl Knutson MD Unavailable Unavailable Afsaneh, Cheryl Knutson MD Unavailable Unavailable Afsaneh, Cheryl Knutson MD Unavailable Unavailable Afsaneh, Cheryl Knutson MD Unavailable Unavailable Afsaneh, Cheryl Knutson MD Unavailable Unavailable Afsaneh, Cheryl Knutson MD Unavailable Unavailable Afsaneh, Cheryl Knutson MD Unavailable Unavailable Afsaneh, Cheryl Knutson MD Unavailable Unavailable Afsaneh, Cheryl Knutson MD Unavailable Unavailable Afsaneh, Cheryl Knutson MD Unavailable Unavailable Afsaneh, Cheryl Knutson MD Unavailable Unavailable Afsaneh, Cheryl Knutson MD Unavailable Unavailable Afsaneh, Cheryl Knutson MD Unavailable Unavailable Afsaneh, Cheryl Knutson MD Unavailable Unavailable Afsaneh, Cheryl Knutson MD Unavailable Unavailable Afsaneh, Cheryl Knutson MD Unavailable Unavailable Afsaneh, Cheryl Knutson MD Unavailable Unavailable Afsaneh, A Eamon NGUYEN Unavailable Unavailable Afsaneh, A Eamon NGUYEN Unavailable Unavailable Afsaneh, A Eamon NGUYEN Unavailable Unavailable Afsaneh, A Eamon NGUYEN Unavailable Unavailable Afsaneh, A Eamon NGUYEN Unavailable Unavailable Afsaneh, A Eamon NGUYEN Unavailable Unavailable Afsaneh, A Eamon NGUYEN Unavailable Unavailable Afsaneh, A Eamon NGUYEN Unavailable Unavailable Afsaneh, A Eamon NGUYEN Unavailable Unavailable Afsaneh, A Eamon NGUYEN Unavailable Unavailable Afsaneh, A Eamon NGUYEN Unavailable Unavailable Afsaneh, A Eamon NGUYEN Unavailable Unavailable Afsaneh, A Eamon NGUYEN Unavailable Unavailable Afsaneh, A Eamon NGUYEN Unavailable Unavailable Afsaneh, A Eamon NGUYEN Unavailable Unavailable Afsaneh, A Eamon NGUYEN Unavailable Unavailable Afsaneh, A Eamon NGUYEN Unavailable Unavailable Afsaneh, A Eamon NGUYEN Unavailable Unavailable Afsaneh, A Eamon NGUYEN Unavailable Unavailable Afasneh, A Eamon NGUYEN Unavailable Unavailable Afsaneh, A Eamon NGUYEN Unavailable Unavailable Afsaneh, A Eamon NGUYEN Unavailable Unavailable Afsaneh, A Eamon NGUYEN Unavailable Unavailable Afsaneh, A Eamon NGUYEN Unavailable Unavailable Afsaneh, A Eamon NGUYEN Unavailable Unavailable Afsaneh, A Eamon NGUYEN Unavailable Unavailable Afsaneh, A Eamon NGUYEN Unavailable Unavailable Afsaneh, A Eamon NGUYEN Unavailable Unavailable Afsaneh, A Eamon NGUYEN Unavailable Unavailable Afsaneh, A Eamon NGUYEN Unavailable Unavailable Afsaneh, A Eamon NGUYEN Unavailable Unavailable Afsaneh, A Eamon NGUYEN Unavailable Unavailable Afsaneh, A Eamon NGUYEN Unavailable Unavailable Afsaneh, A Eamon NGUYEN Unavailable Unavailable Afsaneh, A Eamon NGUYEN Unavailable Unavailable Afsaneh, Cheryl Knutson MD Unavailable Unavailable Afsaneh, Cheryl Knutson MD Unavailable Unavailable Afsaneh, A Eamon NGUYEN Unavailable Unavailable Afsaneh, A Eamon NGUYEN Unavailable Unavailable Afsaneh, A Eamon NGUYEN Unavailable Unavailable Afsaneh, A Eamon NGUYEN Unavailable Unavailable Afsaneh, A Eamon NGUYEN Unavailable Unavailable Afsaneh, Cheryl Knutson MD Unavailable Unavailable Afsaneh, Cheryl Knutson MD Unavailable Unavailable Afsaneh, Cheryl Knutson MD Unavailable Unavailable Afsaneh, Cheryl Knutson MD Unavailable Unavailable Afsaneh, Cheryl Knutson MD Unavailable Unavailable Afsaneh, Cheryl Knutson MD Unavailable Unavailable Afsaneh, A Eamon NGUYEN Unavailable Unavailable Afsaneh, A Eamon NGUYEN Unavailable Unavailable Afsaneh, Cheryl Knutson MD Unavailable Unavailable Afsaneh, Cheryl Knutson MD Unavailable Unavailable Afsaneh, Cheryl Knutson MD Unavailable Unavailable Afsaneh, Cheryl Knutson MD Unavailable Unavailable Afsaneh, Cheryl Knutson MD Unavailable Unavailable Afsaneh, Cheryl Knutson MD Unavailable Unavailable Afsaneh, Cheryl Knutson MD Unavailable Unavailable Raymon Correa MD Unavailable Unavailable Sunny, Raymon Webber MD Unavailable Unavailable Sunny, Raymon Webber MD Unavailable Unavailable Sunny, Raymon Webber MD Unavailable Unavailable Sunny, Raymon Webber MD Unavailable Unavailable Sunny, Raymon Webber MD Unavailable Unavailable Raymon Correa MD Unavailable Unavailable Raymon Correa MD Unavailable Unavailable Raymon Correa MD Unavailable Unavailable Raymon Correa MD Unavailable Unavailable Raymon Correa MD Unavailable Unavailable Raymon Correa MD Unavailable Unavailable Raymon Correa MD Unavailable Unavailable Raymon Correa MD Unavailable Unavailable Raymon Correa MD Unavailable Unavailable Raymon Correa MD Unavailable Unavailable Raymon Correa MD Unavailable Unavailable Raymon Correa MD Unavailable Unavailable Raymon Correa MD Unavailable Unavailable Raymon Correa MD Unavailable Unavailable Raymon Correa MD Unavailable Unavailable Raymon Correa MD Unavailable Unavailable Raymon Correa MD Unavailable Unavailable Raymon Correa MD Unavailable Unavailable Raymon Correa MD Unavailable Unavailable Raymon Correa MD Unavailable Unavailable Raymon Correa MD Unavailable Unavailable Raymon Correa MD Unavailable Unavailable Raymon Correa MD Unavailable Unavailable Raymon Correa MD Unavailable Unavailable Raymon Correa MD Unavailable Unavailable Raymon Correa MD Unavailable Unavailable Raymon Correa MD Unavailable Unavailable Raymon Correa MD Unavailable Unavailable Raymon Correa MD Unavailable Unavailable Raymon Correa MD Unavailable Unavailable Raymon Correa MD Unavailable Unavailable Raymon Correa MD Unavailable Unavailable Raymon Correa MD Unavailable Unavailable Raymon Correa MD Unavailable Unavailable Raymon Correa MD Unavailable Unavailable Raymon Correa MD Unavailable Unavailable Raymon Correa MD Unavailable Unavailable Raymon Correa MD Unavailable Unavailable Raymon Correa MD Unavailable Unavailable Raymon Correa MD Unavailable Unavailable Raymon Correa MD Unavailable Unavailable Raymon Correa MD Unavailable Unavailable Raymon Correa MD Unavailable Unavailable Raymon Correa MD Unavailable Unavailable Raymon Correa MD Unavailable Unavailable Raymon Correa MD Unavailable Unavailable Raymon Correa MD Unavailable Unavailable Raymon Correa MD Unavailable Unavailable Raymon Correa MD Unavailable Unavailable Raymon Correa MD Unavailable Unavailable Raymon Correa MD Unavailable Unavailable Raymno Correa MD Unavailable Unavailable Raymon Correa MD Unavailable Unavailable Raymon Correa MD Unavailable Unavailable Raymon Correa MD Unavailable Unavailable Raymon Correa MD Unavailable Unavailable Raymon Correa MD Unavailable Unavailable Raymon Correa MD Unavailable Unavailable Schoeneman, Knickerbocker DO Unavailable Unavailable Schoeneman, Knickerbocker DO Unavailable Unavailable Schoeneman, Ginna DO Unavailable Unavailable Schoeneman, Ginna DO Unavailable Unavailable Schoeneman, Ginna DO Unavailable Unavailable Schoeneman, Ginna DO Unavailable Unavailable Schoeneman, Knickerbocker DO Unavailable Unavailable Schoeneman, Ginna DO Unavailable Unavailable Schoeneman, Ginna DO Unavailable Unavailable Schoeneman, Ginna DO Unavailable Unavailable Schoeneman, Ginna DO Unavailable Unavailable Schoeneman, Ginna DO Unavailable Unavailable Schoeneman, Ginna DO Unavailable Unavailable Schoeneman, Ginna DO Unavailable Unavailable Schoeneman, Knickerbocker DO Unavailable Unavailable Schoeneman, Ginna DO Unavailable Unavailable Schoeneman, Ginna DO Unavailable Unavailable Schoeneman, Ginna DO Unavailable Unavailable Schoeneman, Ginna DO Unavailable Unavailable Schoeneman, Ginna DO Unavailable Unavailable Schoeneman, Ginna DO Unavailable Unavailable Schoeneman, Ginna DO Unavailable Unavailable Schoeneman, Knickerbocker DO Unavailable Unavailable Schoeneman, Knickerbocker DO Unavailable Unavailable Schoeneman, Ginna DO Unavailable Unavailable Schoeneman, Knickerbocker DO Unavailable Unavailable Schoeneman, Ginna DO Unavailable Unavailable Schoeneman, Knickerbocker DO Unavailable Unavailable Schoeneman, Ginna DO Unavailable Unavailable Schoeneman, Knickerbocker DO Unavailable Unavailable Schoeneman, Ginna DO Unavailable Unavailable Schoeneman, Knickerbocker DO Unavailable Unavailable Schoeneman, Ginna DO Unavailable Unavailable Schoeneman, Ginna DO Unavailable Unavailable Schoeneman, Knickerbocker DO Unavailable Unavailable Schoeneman, Knickerbocker DO Unavailable Unavailable Schoeneman, Knickerbocker DO Unavailable Unavailable Schoeneman, Ginna DO Unavailable Unavailable Schoeneman, Ginna DO Unavailable Unavailable Schoeneman, Ginna DO Unavailable Unavailable Schoeneman, Knickerbocker DO Unavailable Unavailable Schoeneman, Knickerbocker DO Unavailable Unavailable Schoeneman, Knickerbocker DO Unavailable Unavailable JORDANEleanor PA Unavailable Unavailable JORDANEleanor PA Unavailable Unavailable JORDANEleanor PA Unavailable Unavailable JORDANEleanor PA Unavailable Unavailable JORDANEleanor PA Unavailable Unavailable JORDANEleanor PA Unavailable Unavailable JORDAN, Eleanor SANDOVAL PA Unavailable Unavailable JORDAN, Eleanor SANDOVAL PA Unavailable Unavailable JORDAN, Eleanor SANDOVAL PA Unavailable Unavailable JORDANEleanor PA Unavailable Unavailable JORDANEleanor PA Unavailable Unavailable JORDANEleanor PA Unavailable Unavailable JORDANEleanor PA Unavailable Unavailable JORDANEleanor PA Unavailable Unavailable JORDANEleanor PA Unavailable Unavailable JORDANEleanor PA Unavailable Unavailable JORDANEleanor PA Unavailable Unavailable JORDANEleanor PA Unavailable Unavailable JORDANEleanor PA Unavailable Unavailable JORDANEleanor PA Unavailable Unavailable JORDANEleanor PA Unavailable Unavailable JORDANEleanor PA Unavailable Unavailable JORDANEleanor PA Unavailable Unavailable Jepma, W Julio DO Unavailable Unavailable Jepma, W Julio DO Unavailable Unavailable Jepma, W Julio DO Unavailable Unavailable Jepma, W Julio DO Unavailable Unavailable Jepma, W Julio DO Unavailable Unavailable Jepma, W Julio DO Unavailable Unavailable Jepma, W Julio DO Unavailable Unavailable Jepma, W Julio DO Unavailable Unavailable Jepma, W Julio DO Unavailable Unavailable Jepma, W Julio DO Unavailable Unavailable Jepma, W Julio DO Unavailable Unavailable Jepma, W Julio DO Unavailable Unavailable Jepma, W Julio DO Unavailable Unavailable Jepma, W Julio DO Unavailable Unavailable Jepma, W Julio DO Unavailable Unavailable Jepma, W Julio DO Unavailable Unavailable Jepma, W Julio DO Unavailable Unavailable Jepma, W Julio DO Unavailable Unavailable Jepma, W Julio DO Unavailable Unavailable Jepma, W Julio DO Unavailable Unavailable Jepma, W Julio DO Unavailable Unavailable Jepma, W Julio DO Unavailable Unavailable Jepma, W Julio DO Unavailable Unavailable Jepma, W Julio DO Unavailable Unavailable Jepma, W Julio DO Unavailable Unavailable Jepma, W Julio DO Unavailable Unavailable Jepma, W Julio DO Unavailable Unavailable Jepma, W Julio DO Unavailable Unavailable Jepma, W Julio DO Unavailable Unavailable Jepma, W Julio DO Unavailable Unavailable Jepma, W Julio DO Unavailable Unavailable Jepma, W Julio DO Unavailable Unavailable Jepma, W Julio DO Unavailable Unavailable Jepma, W Julio DO Unavailable Unavailable Jepma, W Julio DO Unavailable Unavailable Jepma, W Julio DO Unavailable Unavailable Jepma, W Julio DO Unavailable Unavailable Jepma, W Julio DO Unavailable Unavailable Jepma, W Julio DO Unavailable Unavailable Jepma, W Julio DO Unavailable Unavailable Jepma, W Julio DO Unavailable Unavailable Jepma, W Julio DO Unavailable Unavailable Jepma, W Julio DO Unavailable Unavailable Jepma, W Julio DO Unavailable Unavailable Jepma, W Julio DO Unavailable Unavailable Jepma, W Julio DO Unavailable Unavailable Jepma, W Julio DO Unavailable Unavailable Jepma, W Julio DO Unavailable Unavailable Jepma, W Julio DO Unavailable Unavailable Jepma, W Julio DO Unavailable Unavailable Jepma, W Julio DO Unavailable Unavailable Jepma, W Julio DO Unavailable Unavailable Jepma, W Julio DO Unavailable Unavailable Jepma, W Julio DO Unavailable Unavailable Jepma, W Julio DO Unavailable Unavailable Jepma, W Julio DO Unavailable Unavailable Re-disclosure Warning The records that you are about to access may contain information from federally-assisted alcohol or drug abuse programs. If such information is present, then the following federally mandated warning applies: This information has been disclosed to you from records protected by federal confidentiality rules (42 CFR part 2). The federal rules prohibit you from making any further disclosure of this information unless further disclosure is expressly permitted by the written consent of the person to whom it pertains or as otherwise permitted by 42 CFR part 2. A general authorization for the release of medical or other information is NOT sufficient for this purpose. The Federal rules restrict any use of the information to criminally investigate or prosecute any alcohol or drug abuse patient.The records that you are about to access may contain highly sensitive health information, the redisclosure of which is protected by Article 27-F of the [facility] Public Health law. If you continue you may have access to information: Regarding HIV / AIDS; Provided by facilities licensed or operated by the [facility] Office of Mental Health; or Provided by the [facility] Office for People With Developmental Disabilities. If such information is present, then the following [facility] mandated warning applies: This information has been disclosed to you from confidential records which are protected by state law. State law prohibits you from making any further disclosure of this information without the specific written consent of the person to whom it pertains, or as otherwise permitted by law. Any unauthorized further disclosure in violation of state law may result in a fine or alf sentence or both. A general authorization for the release of medical or other information is NOT sufficient authorization for further disc losure. Allergies and Adverse Reactions Type Description Substance Reaction Status Data Source(s ) Allergy to substance Allergy to substance Allergy to substance [facility] ([facility]) Allergy to substance Allergy to substance Allergy to substance [facility] ([facility]) Allergy to substance Allergy to substance Allergy to substance [facility] ([facility]) Family History Family Member Name Family Member Gender Family Member Status Date o f Status Description Data Source(s) Unknown Male Problem [facility]ENT ([facility]) Unknown Unknown Problem [facility] ([facility] Encounters Encounter Providers Location Date Indications Data Source(s ) Outpatient Attender: Mela LEI-CReferrer: B willard Schoeneman DO EMERGENCY ROOM-LABOTHPROV 05/03/2021 08:43:00 AM EST - 05/03/2021 08:43:00 AM [facility] Outpatient Attender: Akbar Welsh: Ginna Bernardo DO EMERGENCY ROOM-ULTRA 04/12/2021 08:20:00 AM EDT - 04/12/2021 08:20:00 AM [facility] Unknown [address] [facility] [address] 04/07/2021 12:00:00 AM EDT eCW1 ([facility]) Rafael Canas MD: [address] [place] [phone], Ph. Attender: Rafael Canas MD [facility] Medical 03/29/2021 12:00:00 AM EDT BR[facility] ([facility]) Outpatient Attender: Akbar Correa MD [place] [id number] 03/26/2021 10:00:00 AM EDT MEDENT ([facility]) Outpatient Attender: Mela SHAHCReferrer: Joe Bernardo DO EMERGENCY ROOM-LABOTHPROV 01/29/2021 03:39:00 PM EDT - 01/29/2021 03:39:00 PM [facility] Outpatient [address] [facility] [address] 12/23/2020 12:00:00 AM EDT eCW1 ([facility]) Outpatient Attender: Eamon Welsh: Og Bernardo DO EMERGENCY ROOM-LABOTHPROV 12/14/2020 10:39:00 AM EDT - 12/14/2020 10:39:00 AM [facility] Inpatient Attender: Eamon Shelby MDAdmitter: Eamon davenport MD [id number] 12/02/2020 10:15:00 PM EDT - 12/08/2020 02:47:00 AM EDT [facility] Patient discharged. Emergency Attender: CORY Vasques : Ginna Bernardo DO EMERGENCY ROOM-ER 12/01/2020 12:42:00 AM EDT - 12/01/2020 04:42:00 AM EDT [facility] Patient discharged. [place] [address] [facility] [facility] [address] 11/23/2020 12:00:00 AM EDT eCW1 ([facility]) Outpatient Admitter: Izaiahjoanne Estrada MOB-MOB.PAT 2020 08:41:16 AM EDT - 11/14/2020 08:46:14 AM EDT [facility] Unknown [address] [facility] [address] 11/13/2020 12:00:00 AM EDT eCW1 ([facility]) Outpatient Attender: Izaiah EstradaAdmitter: Izaiah ritter MOB-MOB.PAT 11/06/2020 12:58:53 PM EDT - 11/06/2020 02:02:05 PM EDT [facility] Out[place] [address] [facility] [address] 10/29/2020 12:00:00 AM EDT eCW1 ([facility]) [place] [address] [facility] [address] 10/29/2020 12:00:00 AM EDT eCW1 ([facility]) Rafael Canas MD: [address] [place] [phone], Ph. Attender: Rafael Canas MD [facility] Medical 10/28/2020 12:00:00 AM EDT BR[facility]NI ([facility]) Rafael Canas MD: [address] [place] [phone], Ph. Attender: Rafael Canas MD [facility] Medical 10/28/2020 12:00:00 AM EDT [facility] ([facility]) [place] [address] [facility] [address] 10/19/2020 12:00:00 AM EDT eCW1 ([facility]) Inpatient Attender: Izaiah EstradaAdmitter: Izaiah Comm ey [id number] 10/16/2020 04:06:00 PM EDT - 11/20/2020 04:27:00 PM EDT [facility] Patient discharged. [place] [address] [facility] [address] 10/08/2020 12:00:00 AM EDT eCW1 ([facility]) Rafael Canas MD: [address] [place] [phone], Ph. Attender: Rafael Canas MD [facility] Medical 10/01/2020 12:00:00 AM EDT [facility] ([facility]) Rafael Canas MD: [address] [place] [phone], Ph. Attender: Rafael Canas MD [facility] Medical 10/01/2020 12:00:00 AM EDT [facility] ([facility]) Out[place] [address] [facility] [address] 10/01/2020 12:00:00 AM EDT eCW1 ([facility]) [place] [address] [facility] [address] 10/01/2020 12:00:00 AM EDT eCW1 ([facility]) Rafael Canas MD: [address] [place] [phone], Ph. Attender: Rafael Canas MD [facility] Medical 10/01/2020 12:00:00 AM EDT [facility] ([facility]) Outpatient [address] [facility] [address] 08/27/2020 12:00:00 AM EST eCW1 ([facility]) Outpatient Attender: Ryan DERAS.TONYA-SJJOSSY 06/2020 12:00:00 AM EST - 08/17/2020 04:20:44 PM EST [facility] Outpatient Referrer: Akbar Correa MD MOB-MOB.PAT 08/05/19 11:08:15 AM EST - 08/05/2020 11:08:23 AM EST [facility] Outpatient [address] [facility] [address] 07/30/2020 12:00:00 AM EST eCW1 ([facility]) [place] [address] [facility] [address] 07/30/2020 12:00:00 AM EST eCW1 ([facility]) Unknown [address] [facility] [place] [address] 07/15/2020 12:00:00 AM EST eCW1 ([facility]) Outpatient Attender: Akbar Correa MDAdmitter: Akbar Correa MD E [id number].[email or web address] 07/13/2020 08:38:11 AM EST - 08/10/2020 12:07:00 PM EST [facility] Patient discharged. [place] [address] [facility] [address] 07/10/2020 12:00:00 AM EST eCW1 ([facility]) Unknown [address] [facility] [address] 07/06/2020 12:00:00 AM EST eCW1 ([facility]) Outpatient [address] [facility] [place] [address] 06/29/2020 12:00:00 AM EST eCW1 ([facility]) Unknown [address] [facility] [address] 06/02/2020 12:00:00 AM EST eCW1 ([facility]) Outpatient [address] [facility] [place] [address] 06/01/2020 12:00:00 AM EST eCW1 ([facility]) Unknown [address] [facility] [place] [address] 05/26/2020 12:00:00 AM EST eCW1 ([facility]) Outpatient Attender: Ryan SANFORDTONYA-SJP.TONYA 06/2019 12:00:00 AM EST - 05/20/2020 08:15:33 AM EST [facility] Outpatient Referrer: Ryan SANFORDTONYA-SJP.TONYA 09/2019 12:00:00 AM EST [facility] Outpatient Attender: Ryan SANFORDTONYA-SJP.TONYA 03/20 03:54:02 PM EDT - 04/09/2020 05:08:36 PM EDT [facility] Emergency Attender: DELMA RIVERAeferrer: Julio luna DO 03/19/2017 12:57:00 PM EDT - 03/19/2017 01:43:00 PM EDT [facility] Outpatient Attender: Katerina Taylorerrer: Eleazar Crawley DO EMERGENCY ROOM-LAB 01/06/2017 09:43:00 AM EDT - 01/05/2017 08:17:00 AM [facility] Emergency Attender: CORY LEI 08/16/2013 08:57:00 AM EST - 08/16/2013 10:09:00 AM [facility] Emergency Attender: LORI LEI 03/19 10:02:00 PM EDT - 03/31/2013 12:23:00 AM [facility] Immunizations Vaccine Date Status Description Data Source(s) COVID-19, mRNA, LNP-S, PF, 100 mcg/0.5 mL dose 10/30/2020 08 :00:11 AM EDT completed 10.5 mL [facility] ([facility]) COVID-19, mRNA, LNP-S, PF, 100 mcg/0.5 mL dose 10/30/2020 08 :00:11 AM EDT completed 10.5 mL [facility] ([facility]) COVID-19 VACCINE Moderna 10/30/2020 12:00:00 AM EDT completed [facility] Vaccine Series Complete: YESThis Data wa s Submitted to [facility] Via [email or web address]. COVID-19, mRNA, LNP-S, PF, 100 mcg/0.5 mL dose 10/01/2020 05 :01:20 PM EDT completed .5 mL [facility] ([facility]) COVID-19, mRNA, LNP-S, PF, 100 mcg/0.5 mL dose 10/01/2020 05 :01:20 PM EDT completed .5 mL [facility] ([facility]) COVID-19, mRNA, LNP-S, PF, 100 mcg/0.5 mL dose 10/01/2020 05 :01:20 PM EDT completed .5 mL MORAN ([facility]) COVID-19 VACCINE Moderna 10/01/2020 12:00:00 AM EDT completed [employer] Vaccine Series Complete: NOThis Data was Submitted to [facility] Via [email or web address]. Medications Medication Brand Name Start Date Product Form Dose Route Admi nistrative Instructions Pharmacy Instructions Status Indications Reaction Description Data Source(s) 17 gram/dose 04/30/2021 12:00:00 AM EST powder 238 MIX 17 GRAMS WITH 8 OUNCES OF FLUID AND DRINK BY MOUTH 1-2 TIMES A DAY NEEDED, HOLD OR DECREASE IF HAVING DIARRHEA MIX 17 GRAMS WITH 8 OUNCES OF FLUID AND DRINK BY MOUTH 1-2 TIMES A DAY NEEDED, HOLD OR DECREASE IF HAVING DIARRHEA SOLD: 05/05/2021 [facility] 5 mg 04/30/2021 12:00:00 AM EST tablet,delayed release (DR/EC) 4 TAKE 4 TABLETS BY MOUTH TOGETHER FOR BOWEL PREP TAKE 4 TABLETS BY MOUTH TOGETHER FOR BOWEL PREP SOLD: 05/05/2021 [facility] POLYETHYLENE GLYCOL 3350 319349 MG / Pot assium Chloride 1480 MG / Sodium Bicarbonate 5720 MG / Sodium Chloride 26944 MG Powder for Oral Solution SODIUM CHLORIDE/NAHCO3/KCL/PEG 04/30/2021 12:00:00 AM EST recon soln 4000 USE DIRECTED FOR PREP USE DIRECTED FOR PREP SOLD: 05/05/2021 [facility] pantoprazole 40 MG Delayed Release Oral Tablet PANTOPRAZOLE SODIUM 04/02/2021 12:00:00 AM EDT tablet,delayed release (DR/EC) 30 T GEORGE ONE TABLET BY MOUTH EVERY DAY TAKE ONE TABLET BY MOUTH EVERY DAY SOLD: 04/03/2021 [facility] technetium labeled red blood cells (ULTRATAG) injectio n 20 millicurie drug or medication 12/07/2020 11:00:00 AM EDT 20 mCi Intravenous co mpleted 20 millicurie, Intravenous, Once, On 12/07/20 at 1100, For 1 dose [facility] Medication administered onsite Melatonin 3 MG Oral Tablet melatonin tablet 3 mg melatonin t ablet 3 mg 12/04/2020 10:19:11 PM EDT 3 mg Oral active 3 mg, Oral, Nightly PRN, sleep, Starting on Mon12/04/20 at 2219 [facility] Medication administered onsite Acetaminophen 325 MG Oral Tablet acetaminophen (TYLENO L) 325 MG tablet 650 mg acetaminophen (TYLENOL) 325 MG tablet 650 mg 12/04/2020 12:39:14 PM EDT 650 mg Oral active 650 mg, Or al, Every 6 hours PRN, mild pain (1-3), Starting on Mon12/04/20 at 1239
"Maximum dose of acetaminophen is 4,000 mg from all sources in 24 hours."
[facility] Medication administered onsite Escitalopram 10 MG Oral Tablet escitalopram (LEXAPRO) tablet 10 mg escitalopram (LEXAPRO) tablet 10 mg 12/03/2020 09:00:00 AM EDT 10 mg Oral active 10 mg, Oral, Daily, First dose on Mon12/03/20 at 0900 [facility] Medication administered onsite Insulin Lispro 100 UNT/ML Injectable Carlota ution insulin lispro (HumaLOG) injection 1-6 Units insulin lispro (HumaLOG) injection 1-6 Units 08:00:00 AM EDT U Subcutaneous active 1-6 Units, Subcutaneous, MEALSS, First dose on Mon12/03/20 at 0800
Frail 3 units Nutritional and Correction Insulin Scale Blood Glucose (mg/dl) <70 start hypoglycemia protocol Glucose &nbsp ; Eats >=50% Eats &l t;50% Eats Nothing (mg/dl) of meal of meal or NPO &nb sp; 70- 120 2 units 1 units 0 units 121-170 & nbsp; 3 units 2 units 0 units 171-220 &nbsp ; 4 units 2 units 1 units 221-270 &am p;nbsp; 4 units 3 units 1 units 271-320 &n bsp; 5 units 3 units 2 units 321- 370 5 units 4 units 2 units 371- 420 6 units 4 units 3 units >420 call MD 6 units 5 units 3 units Test glucose within 30 minutes of insulin administration. Administer insulin within 15 minutes (before or after) of t he patient starting to eat. For patients that are NPO, use the NPO (correction) scale to cover POC glucose at 08:00, 12:00, 17:00.
[facility] Medication administered onsite phytonadione (AQUA-MEPHYTON) oral solution 1 mg [id number] 12/02/2020 11:15:00 PM EDT 1 mg Oral completed 1 mg, Oral, Once, On Mon12/02/20 at 2315, For 1 dose [facility] Medication administered onsite Calcium Chloride 0.001 MEQ/ML / Glucose 50 MG/ML / Potassium Chloride 0.004 MEQ/ML / Sodium Chloride 0.103 MEQ/ML / Sodium Lactate 0.028 MEQ/ML Injectable Solution dextrose 5 % in lactated ringers infusion dextrose 5 % in lactated ringers infusion 12/02/2020 11:15:00 PM EDT Intravenous active at 100 mL/hr, Intravenous, Continuous, Starting on Mon12/02/20 at 2315 [facility] Medication administered onsite normal saline flush 0.9 % injection 3 mL [id number] 12/02/2020 11:15:00 PM EDT 3 mL Intravenous active 3 mL , Intravenous, Every 8 hours (scheduled), First dose on Mon12/02/20 at 2315
flush per protocol, D/C Main IV fluid if appropriate
[facility] Medication administered onsite Doxazosin 2 MG Oral Tablet doxazosin (CARDURA) tablet 2 mg doxazosin (CARDURA) tablet 2 mg 12/02/2020 11:15:00 PM EDT 2 mg Oral active 2 mg, Oral, Nightly, First dose on Mon12/02/20 at 2315
Hold SBP <100
[facility] Medication administered onsite pantoprazole 40 MG Delayed Release Oral Tablet pantoprazole (PROTONIX) EC tablet 40 mg pantoprazole (PROTONIX) EC tablet 40 mg 12/02/2020 11:15:00 PM E DT 40 mg Oral active Gastroesophageal Reflux Diseas e 40 mg, Oral, Daily, Indications: Gastroesophageal Reflux Disease, First dose on Mon12/02/20 at 2315 [facility] Gastroesophageal Reflux Disease Medication administered onsite carvedilol 25 MG Oral Tablet carvedilol (COREG) tablet 25 mg carvedilol (COREG) tablet 25 mg 12/02/2020 11:15:00 PM EDT 25 mg Oral activ e 25 mg, Oral, 2 times daily, First dose on Mon12/02/20 at 2315
Hold for SBP <100
[facility] Medication administered onsite Blood Glucose Test - Blood Glucose Test - 11/23/2020 12:00:00 AM EDT active Blood Glucose Test - eCW1 ([facility]) Lancets - Lancets - 11/23/2020 12:00:00 AM EDT suspended Lancets - eCW1 ([facility]) Glucometer UNK 11/23/2020 12:00:00 AM EDT suspend ed Glucometer eCW1 ([facility]) Glucometer UNK 11/23/2020 12:00:00 AM EDT suspend ed Glucometer eCW1 ([facility]) Glucometer UNK 11/23/2020 12:00:00 AM EDT active Glucometer eCW1 ([facility]) 30 gauge 11/23/2020 12:00:00 AM EDT misc 100 USE DIRECTED THREE TIMES A DAY USE DIRECTED THREE TIMES A DAY SOLD: 11/23/2020 [facility] Blood Glucose Test - Blood Glucose Test - 11/23/2020 12:00:00 AM EDT suspended Blood Glucose Test - eCW1 ([facility]) Lancets - Lancets - 11/23/2020 12:00:00 AM EDT suspended Lancets - eCW1 ([facility]) Lancets - Lancets - 11/23/2020 12:00:00 AM EDT act alycia Lancets - eCW1 ([facility]) BLOOD SUGAR DIAGNOSTIC 11/23/2020 12:00:00 AM EDT strip 100 USE DIRECTED THREE TIMES A DAY USE DIRECTED THREE TIMES A DAY SOLD: 11/23/2020 [facility] Blood Glucose Test - Blood Glucose Test - 11/23/2020 12:00:00 AM EDT suspended Blood Glucose Test - eCW1 ([facility]) BLOOD-GLUCOSE METER 11/23/2020 12:00:00 AM EDT misc 1 USE DIRECTED USE DIRECTED SOLD: 11/23/2020 [facility] Allopurinol 100 MG Oral Tablet allopurinol (ZYLOPRIM) tablet 300 mg allopurinol (ZYLOPRIM) tablet 300 mg 11/20/2020 09:00:00 AM EDT 300 mg Oral active 300 mg, Oral, Daily, First dose on Mon11/20/20 at 0900 [facility] Medication administered onsite pantoprazole 40 MG Delayed Release Oral Tablet pantoprazole (PROTONIX) EC tablet 40 mg pantoprazole (PROTONIX) EC tablet 40 mg 11/20/2020 09:00:00 AM E DT 40 mg Oral active Stress Ulcer Prophylaxis 40 mg, Oral, Daily, Indications: Stress Ulcer Prophylaxis, First dose on Mon11/20/20 at 0900, Post-op [facility] Stress Ulcer Prophylaxis Medication administered onsite Amlodipine 10 MG Oral Tablet amLODIPine (NORVASC) tabl et 10 mg amLODIPine (NORVASC) tablet 10 mg 11/20/2020 09:00:00 AM EDT 10 mg Oral active 10 mg, Oral, Daily, First dose on Mon11/20/20 at 09 [facility] Medication administered onsite Escitalopram 10 MG Oral Tablet escitalopram (LEXAPRO) tablet 10 mg escitalopram (LEXAPRO) tablet 10 mg 11/20/2020 09:00:00 AM EDT 10 mg Oral active 10 mg, Oral, Daily, First dose on Mon11/20/20 at 0900 [facility] Medication administered onsite Hydrochlorothiazide 12.5 MG / valsartan 320 MG Oral Tablet valsartan- hydrochlorothiazide (DIOVAN-HCT) 320-12.5 MG per tablet 1 tablet valsartan- hydrochlorothiazide (DIOVAN-HCT) 320-12.5 MG per tablet 1 tablet 11/20/2020 09:00:00 AM EDT 1 {tbl} Oral active 1 tablet, Oral, Daily, First dose on Mon11/20/20 at 0900 [facility] Medication administered onsite Spironolactone 25 MG Oral Tablet spironolactone (ALDAC TONE) tablet 50 mg spironolactone (ALDACTONE) tablet 50 mg 11/20/2020 09:00:00 AM EDT 50 mg Oral active 50 mg, Oral, Da berta, First dose on Mon11/20/20 at 09
For administration and preparation considerations, refer to [facility]ardous Drugs in the Workplace Policy on Intr[employer].
[facility] Medication administered onsite lactated ringers bolus 1,000 mL [id number] 11/20/2020 06:00:00 AM EDT 1000 mL Intravenous completed 1,000 mL , Intravenous, Administer over 2 Hours, Once, On Mon11/20/20 at 0600, For 1 dose, Post-op [facility] Medication administered onsite ondansetron (ZOFRAN-ODT) disintegrating tablet 8 mg 11/20/2020 06:00:00 AM EDT 8 mg Oral active [Order 1 Start] Name: ondansetron (ZOFRAN-ODT) disintegrating tablet 8 mg Signed Summary: 8 mg, Oral, Every 6 hours PRN, nausea, Starting on Mon11/20/20 at 0600, Post-op [Order 1 End] [Order 2 Start] Name: ondansetron (ZOFRAN) injection 8 mg Signed Summary: 8 mg, Intravenous, Every 6 hours PRN, nausea, severe nausea, Starting on Mon11/20/20 at 0600, Post- op [Order 2 End] [facility] Medication administered onsite Acetaminophen 325 MG Oral Tablet acetaminophen (TYLENO L) 325 MG tablet 650 mg acetaminophen (TYLENOL) 325 MG tablet 650 mg 11/20/2020 12:00:00 AM EDT 650 mg Oral active 650 mg, Or al, Every 4 hours PRN, mild pain (1-3), for mild pain, headache, or temperature > 101, Starting on Mon11/20/20 at 0000, Post- op
To begin after routine doses of tylenol.
[facility] Medication administered onsite Ascorbic Acid 60 MG / Beta Carotene 5000 UNT / Copper Sulfate 40 MG / dl-alpha tocopheryl acetate 30 UNT / Sodium Selenite 0.04 MG / Zinc Oxide 40 MG Oral Tablet Multiple Vitamins-Iron (multivitamin with iron) TABS Multiple Vitamins- Iron (multivitamin with iron) TABS 11/20/2020 12:00:00 AM EDT 1 {tbl} Oral aborted Take 1 tablet by mouth daily [facility] Vitamin B 12 0.1 MG Oral Tablet vitamin B-12 (CYANOCOB ALAMIN) 100 MCG tablet vitamin B-12 (CYANOCOBALAMIN) 100 MCG tablet 11/20/2020 12:00:00 AM EDT 50 ug Oral aborted Take 0.5 tablets (50 mcg total) by mouth daily [facility] Ondansetron 4 MG Oral Tablet ondansetron (ZOFRAN) 4 MG tablet ondansetron (ZOFRAN) 4 MG tablet 11/20/2020 12:00:00 AM EDT 4 mg Oral active Take 1 tablet (4 mg total) by mouth every 8 (eight) hours as needed for nausea [facility] Simethicone 80 MG Chewable Tablet simethicone (MYLICON ) 80 MG chewable tablet simethicone (MYLICON) 80 MG chewable tablet 11/20/2020 12:00:00 AM EDT 80 mg Oral active Chew 1 tablet (80 mg total) every 6 (six) hours as needed for flatulence [facility] 0.4 ML Enoxaparin sodium 100 MG/ML Prefi lled Syringe enoxaparin (LOVENOX) 40 MG/0.4ML SOLN enoxaparin (LOVENOX) 40 MG/0.4ML SOLN 11/20/2020 12:00:00 AM EDT 40 mg Subcutaneous aborted Inject 0.4 mL (40 mg total) under the skin daily [facility] 4 mg 11/20/2020 12:00:00 AM EDT tablet 9 TAKE ONE TABLET BY MOUTH EVERY 8 HOURS NEEDED FOR NAUSEA TAKE ONE TABLET BY MOUTH EVERY 8 HOURS A S NEEDED FOR NAUSEA SOLD: 11/23/2020 [facility] normal saline flush 0.9 % injection 3 mL [id number] 11/19/2020 10:00:00 PM EDT 3 mL Intravenous active 3 mL , Intravenous, QSHIFT, First dose on Valery 11/19/20 at 2200, Post-op
Convert to saline lock after discontinuing D5LR IV.
[facility] Medication administered onsite lactated ringers bolus 500 mL [id number] 11/19/2020 09:00:00 PM EDT 500 mL Intravenous completed 500 mL, Intra venous, Administer over 1 Hours, Once, On Valery 11/19/20 at 2100, For 1 dose [facility] Medication administered onsite carvedilol 25 MG Oral Tablet carvedilol (COREG) tablet 25 mg carvedilol (COREG) tablet 25 mg 11/19/2020 09:00:00 PM EDT 25 mg Oral activ e 25 mg, Oral, 2 times daily, First dose on Mon11/19/20 at 2100 [facility] Medication administered onsite heparin (porcine) injection 5,000 Units [id number] 11/20/19 09:00:00 PM EDT 5000 U Subcutaneous active 5,000 Units , Subcutaneous, Every 8 hours (relative), First dose on Mon11/19/20 at 2100, Post-op
If platelet count is less than 100,000 or hematocrit is less than 25, or if there is a 5 point decrea se in hematocrit, do not give the dose and call physician/designee.
[facility] Medication administered onsite Doxazosin 2 MG Oral Tablet doxazosin (CARDURA) tablet 2 mg doxazosin (CARDURA) tablet 2 mg 11/19/2020 09:00:00 PM EDT 2 mg Oral active 2 mg, Oral, Nightly, First dose on Mon11/19/20 at 2100 [facility] Medication administered onsite Ondansetron 4 MG Disintegrating Oral Tab let ondansetron (ZOFRAN-ODT) disintegrating tablet 8 mg ondansetron (ZOFRAN-ODT) disintegrating tablet 8 mg 11/19/2020 06:00:00 PM EDT 8 mg Oral active 8 mg, Oral, Every 6 hours (scheduled), First dose on Mon11/19/20 at 1800, For 24 hours, Post-op [facility] Medication administered onsite Insulin Lispro 100 UNT/ML Injectable Carlota ution insulin lispro (HumaLOG) injection 4-16 Units insulin lispro (HumaLOG) injection 4-16 Units 11/20/19 06:00:00 PM EDT U Subcutaneous active 4-1 6 Units, Subcutaneous, Q6HSS, First dose on Mon11/19/20 at 1800, Post-op
Blood Sugar Units of HumaLOG 145-170 4 units 171-220 6 units 221-270 8 units 271-320 10 units 321-370 12 units 371-420 14 units >420 16 units, Call MD
[facility] Medication administered onsite Acetaminophen 500 MG Oral Tablet acetaminophen (TYLENO L) tablet 1,000 mg acetaminophen (TYLENOL) tablet 1,000 mg 11/19/2020 05:00:00 PM EDT 1000 mg Oral active 1,000 mg, Oral , Every 8 hours (relative), First dose (after last modification) on Valery 11/19/20 at 1700, For 48 hours, Post-op [facility] Medication administered onsite 1 ML Ketorolac Tromethamine 30 MG/ML Car tridge ketorolac (TORADOL) injection 30 mg ketorolac (TORADOL) injection 30 mg 11/19/2020 04:14:00 PM EDT 30 mg Intravenous completed 30 mg, Intrav enous, Every 6 hours PRN, moderate pain (4-6), severe pain (7-10), Starting on Valeyr 11/19/20 at 1614, For 24 hours, Post-op [facility] Medication administered onsite gabapentin 300 MG Oral Capsule gabapentin (NEURONTIN) capsule 300 mg gabapentin (NEURONTIN) capsule 300 mg 11/19/2020 04:00:00 PM EDT 300 mg Oral active 300 mg, Oral, 3 times daily, First dose on Valery 11/19/20 at 1600, Post-op [facility] Medication administered onsite Simethicone 80 MG Chewable Tablet simethicone (MYLICON ) chewable tablet 80 mg simethicone (MYLICON) chewable tablet 80 mg 11/19/2020 04:00:00 PM EDT 80 mg Oral active 80 mg, Oral, E very 4 hours (scheduled), First dose on Valery 11/19/20 at 1600, Post-op [facility] Medication administered onsite Calcium Chloride 0.001 MEQ/ML / Glucose 50 MG/ML / Potassium Chloride 0.004 MEQ/ML / Sodium Chloride 0.103 MEQ/ML / Sodium Lactate 0.028 MEQ/ML Injectable Solution dextrose 5 % in lactated ringers infusion dextrose 5 % in lactated ringers infusion 11/19/2020 03:00:00 PM EDT 150 mL/h Intravenous active at 150 mL/hr, 150 mL/hr, Intravenous, Co ntinuous, Starting on Valery 11/19/20 at 1500, Post-op
Discontinue IV & convert to saline lock once 120cc of oral intake is consumed x 3 consecutive hours on POD 1
[facility] Medication administered onsite ondansetron (ZOFRAN) injection 4 mg [id number] 11/19/2020 02:42:1 8 PM EDT 4 mg Intravenous completed 4 mg, In travenous, Once as needed, nausea, vomiting, if not given in last 4 hours, Starting on Valery 11/19/20 at 1442, For 1 dose, PACU & Post-op [facility] Medication administered onsite metoclopramide (REGLAN) injection 10 mg 11/19/2020 02:37:5 2 PM EDT 10 mg Intravenous active [Order 1 Star t] Name: metoclopramide (REGLAN) injection 10 mg Signed Summary: 10 mg, Intravenous, Every 6 hours PRN, nausea, not relieved by ondansetron, Starting on Valery 11/19/20 at 1437, Post-op
Once in PACU then every 6 hours PRN for nausea
[Order 1 End] [Order 2 Start] Name: metoclopramide (REGLAN) tablet 10 mg Signed Summary: 10 mg, Oral, Every 6 hours PRN, nausea, not relieved by ondansetron, Starting on Valery 11/19/20 at 1437, Post- op
Once in PACU then every 6 hours PRN for nausea
[Order 2 End] [facility] Medication administered onsite Prochlorperazine 10 MG Oral Tablet prochlorperazine (C OMPAZINE) tablet 10 mg prochlorperazine (COMPAZINE) tablet 10 mg 11/19/2020 02:37:51 PM EDT 10 mg Oral active 10 mg, Oral, E very 6 hours PRN, nausea, not relieved by metoclopramide, Starting on Valery 11/19/20 at 1437, Post-op [facility] Medication administered onsite Promethazine Hydrochloride 25 MG Oral Ta blet promethazine (PHENERGAN) tablet 12.5 mg promethazine (PHENERGAN) tablet 12.5 mg 11/19/2020 02:37:51 PM E DT 12.5 mg Oral active 12.5 mg, O ral, Every 4 hours PRN, nausea, not relieved by prochlorperazine, Starting on Valery 11/19/20 at 1437, Post-op [facility] Medication administered onsite enalaprilat (VASOTEC) injection 1.25 mg [id number] 11/20/19 02:37:50 PM EDT 1.25 mg Intravenous active 1.25 mg, Int ravenous, Every 6 hours PRN, for SBP > 140 mmHg and/or DBP > 90 mmHg, Starting on Valery 11/19/20 at 1437, Post- op
Mix in 50 mL NS, infuse over 30 minutes via infusion pump. For IVMB on NON-ICU units.
[facility] Medication administered onsite 0.4 ML Enoxaparin sodium 100 MG/ML Prefi lled Syringe enoxaparin (LOVENOX) syringe 40 mg enoxaparin (LOVENOX) syringe 40 mg 11/19/2020 02:37:50 PM EDT 40 mg Subcutaneous completed 40 mg, Subcutaneous, Before Discharge, for prophylaxis, Starting on Valery 11/19/20 at 1437, For 1 dose, Post-op
At discharge. To be administered by patient or significant other.
[facility] Medication administered onsite Clonidine Hydrochloride 0.1 MG Oral Tablet cloNIDine ( CATAPRES) tablet 0.1 mg cloNIDine (CATAPRES) tablet 0.1 mg 11/19/2020 02:37:49 PM EDT 0.1 mg Oral active 0.1 mg, Oral, Every 4 hours PRN, high blood pressure, for SBP > 140 mmHg and/or DBP > 90 mmHg, Starting on Valery 11/19/20 at 1437, Post-op [facility] Medication administered onsite Insulin Lispro 100 UNT/ML Injectable Carlota ution insulin lispro (HumaLOG) injection 0-16 Units insulin lispro (HumaLOG) injection 0-16 Units 11/20/19 02:00:00 PM EDT U Subcutaneous aborted 0-1 6 Units, Subcutaneous, Every 1 hour, First dose on Valery 11/19/20 at 1400, PACU (only)
PACU Use Only!! Blood Glucose every 1 hour with following coverage: Blood Sugar &a mp;nbsp; Units of HumaLOG 145 - 170 4 units 171 - 220 6 units 221 - 270 &nbsp ; 8 units 271 - 320 &nbsp ; 10 units 321 - 370 &nbsp ; 12 units 371 - 420 &nb sp; 14 units > 420 call MD 16 units > 200 &nbsp ; Call MD (May need Lantus dose)
[facility] Medication administered onsite ondansetron (ZOFRAN) injection 4 mg [id number] 11/19/2020 02:00:0 0 PM EDT 4 mg Intravenous completed 4 mg, In travenous, Once, On Valery 11/19/20 at 1400, For 1 dose, PACU (only) [facility] Medication administered onsite fentaNYL Citrate (PF) (SUBLIMAZE) injection 25 mcg [id number] 11/19/2020 12:55:37 PM EDT 25 ug Intravenous aborted 25 mcg, Intravenous, Every 5 min PRN, moderate pain (4 to 6), Starting on Valery 11/19/20 at 1255, For 8 doses, PACU (only) [facility] Medication administered onsite Acetaminophen 325 MG Oral Tablet acetaminophen (TYLENO L) 325 MG tablet 975 mg acetaminophen (TYLENOL) 325 MG tablet 975 mg 11/19/2020 09:00:00 AM EDT 975 mg Oral completed 975 mg, 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
"Maximum dose of acetaminophen is 4,000 mg from all sources in 24 hours."
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
To be started by pre-op unit
[facility] Medication administered onsite Calcium Chloride 0.0014 MEQ/ML / Potassi um Chloride 0.004 MEQ/ML / Sodium Chloride 0.103 MEQ/ML / Sodium Lactate 0.028 MEQ/ML Injectable Solution lactated ringers infusion lactated ringers infusion 11/19/2020 09:00:00 AM EDT 100 mL/h Intravenous aborted at 100 m L/hr, 100 mL/hr, Intravenous, Continuous, Starting on Valery 11/19/20 at 0900, Pre-op
Please place IV on left side if able
[facility] Medication administered onsite gabapentin 600 MG Oral Tablet gabapentin (NEURONTIN) t ablet 600 mg gabapentin (NEURONTIN) tablet 600 mg 11/19/2020 09:00:00 AM EDT 600 mg Oral completed 600 mg, Oral, On siomara l, On Valery 11/19/20 at 0900, For 1 dose, Pre-op
Hold if age greater than 70 or chronic renal failure/insufficiency
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
If platelet count is less than 100,000 or hematocrit is less than 25, or if there is a 5 point decrease in hematocrit, do not give the dose and call physician/designee.
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, On Valery at 0900, For 1 dose, Pre-op [facility] Medication administered onsite celecoxib 100 MG Oral Capsule celecoxib (CeleBREX) cap palma 200 mg celecoxib (CeleBREX) capsule 200 mg 11/19/2020 09:00:00 AM EDT 200 mg Oral completed 200 mg, Oral, 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
Scopolamine patch applied behind ear. Hold for any of the followin+ yrs old, hx of glaucoma, hx of vertigo, dementia.
[facility] Medication administered onsite Doxazosin 2 MG Oral Tablet doxazosin (CARDURA) 2 MG ta blet doxazosin (CARDURA) 2 MG tablet 11/06/2020 12:00:00 AM EDT active TAKE 1 TABLET NIGHTLY [facility] 40 mg 10/01/2020 12:00:00 AM EDT capsule,delayed release (DR/EC) 30 TAKE ONE CAPSULE BY MOUTH EVERY DAY 30 MINUTES BEFORE MORNING MEAL FOR 3 MONTHS AFTER SURGERY TAKE ONE CAPSULE BY MOUTH EVERY DAY 30 M INUTES BEFORE MORNING MEAL FOR 3 MONTHS AFTER SURGERY SOLD: 10/14/2020 [facility] 40 mg/0.4 mL 10/01/2020 12:00:00 AM EDT syringe 4 INJECT 0.4 ML (1 SYRINGE) UNDER THE SKIN ONCE DAILY FOR 10 DAYS AFTER SURGERY INJECT 0.4 ML (1 SYRINGE) UNDER THE SKIN ONCE DAILY FOR 10 DAYS AFTER SURGERY SOLD: 10/14/2020 [facility] 40 mg 10/01/2020 12:00:00 AM EDT capsule,delayed release (DR/EC) 30 TAKE ONE CAPSULE BY MOUTH EVERY DAY 30 MINUTES BEFORE MORNING MEAL FOR 3 MONTHS AFTER SURGERY TAKE ONE CAPSULE BY MOUTH EVERY DAY 30 M INUTES BEFORE MORNING MEAL FOR 3 MONTHS AFTER SURGERY SOLD: 12/25/2020 [facility] Ondansetron 4 MG Disintegrating Oral Tablet ONDANSETRON 10/01/2020 12:00:00 AM EDT tablet,disintegrating 9 PLACE ONE TABLET BY MOUTH EVERY 8 HOURS NEEDED FOR NAUSEA PLACE ONE TABLET BY MOUTH EVERY 8 HOURS NEEDED FOR NAUSEA SOLD: 10/14/2020 [facility] 10 mg 07/31/2020 12:00:00 AM EST tablet 10 TAKE ONE TABLET BY MOUTH EVERY DAY TAKE ONE TABLET BY MOUTH EVERY DAY SOLD: 07/31/2020 [facility] Doxazosin 2 MG Oral Tablet doxazosin (CARDURA) 2 MG ta blet doxazosin (CARDURA) 2 MG tablet 05/19/2020 12:00:00 AM EST 2 mg Oral active Take 1 tablet (2 mg total) by mouth nightly [facility] Spironolactone 50 MG Oral Tablet spironolactone (ALDAC TONE) 50 MG tablet spironolactone (ALDACTONE) 50 MG tablet 05/04/2020 12:00:00 AM EST 50 mg Oral active Take 1 tablet (50 mg tota l) by mouth daily [facility] 25 mg 02/28/2020 12:00:00 AM EDT tablet 30 TAKE ONE TABLET BY MOUTH EVERY DAY TAKE ONE TABLET BY MOUTH EVERY DAY SOLD: 04/01/2020 [facility] Metformin hydrochloride 500 MG Oral Tablet metFORMIN ( GLUCOPHAGE) 500 MG tablet metFORMIN (GLUCOPHAGE) 500 MG tablet 500 mg Oral a borted Take 500 mg by mouth 2 (two) times a day with meals [facility] glimepiride 2 MG Oral Tablet glimepiride (AMARYL) 2 MG tablet glimepiride (AMARYL) 2 MG tablet 2 mg Oral aborted Take 2 mg by mouth every morning before breakfast [facility] Amlodipine 10 MG Oral Tablet amLODIPine (NORVASC) 10 M G tablet amLODIPine (NORVASC) 10 MG tablet 10 mg Oral aborted T george 10 mg by mouth daily [facility] Hydrochlorothiazide 12.5 MG / valsartan 320 MG Oral Tablet valsartan- hydrochlorothiazide (DIOVAN-HCT) 320-12.5 MG per tablet valsartan- hydrochlorothiazide (DIOVAN-HCT) 320-12.5 MG per tablet 1 {t bl} Oral aborted Take 1 tablet by mouth daily [facility] Spironolactone 50 MG Oral Tablet spironolactone (ALDAC TONE) 50 MG tablet spironolactone (ALDACTONE) 50 MG tablet 50 mg Oral aborted Take 50 mg by mouth daily [facility] Insurance Providers Payer name Policy type / Coverage type Policy ID Covered constitution party ID Covered constitution party's relationship to estevez Policy Estevez Plan Information BCBS [facility] [phone] [id number] BC[facility]BS [facility] [id number] Self [facility]/BS [facility] [id number] Self EXCELLUS BCBS [id number] xxxxxxxxxxxx [id number] BCBS OF [place] [id number] S TNY [id number] [employer]LL[employer] BCBS [id number] Nelia TNY [id number] BS [place] [employer] [id number] Self [id number] R [id number] Spo [id number] [employer] [id number] xxxxxxxx [id number] [employer] [id number] SPO [id number] INSURANCE COVID-19 [id number] xxxxx 2 [id number] INSURANCE COVID-19 COVID Nelia C OVID INSURANCE COVID-19 COVID Nelia C OVID INSURANCE COVID-19 [id number] [id number] ANSI-Commercial [id number] ANSI-Commercial [id number] ANSI-Commercial [id number] ANSI-Commercial [id number] ANSI-Commercial [id number] ANSI-Commercial [id number] [employer] [id number] S [id number] ESIS CLAIMS [id number] S [id number] EXCELLUS BCBS B [id number] S TNY [id number] BC/BS Of [facility] [id number] Self BCBS [place] BC [id number] S [id number] [id number] BCBS OF [place] 332/834 [id number] SP [id number] [employer] DEPT [id number] S [id number] [facility] SELF INSURED [id number] S [id number] BCBS [place] [id number] S [id number] EXCELLUS BC-BS PPO [id number] SP [id number] R [facility] [id number] WI2 [id number] BCBS [place] WATN PPO 302/307 [id number] SP [id number] [facility] [id number] [place]2 [id number] BCBS [place] WATN PPO 302/307 [id number] SP [id number] BCBS [place] WATN PPO 302/307 [id number] SP [id number] [employer] COMP INC [id number] S [id number] BCBS [place] [id number] S [id number] ESIS MEDICAL BILL PAY [id number] S [id number] BCBS OF [place] [id number] S TNY [id number] R [id number] SPO [id number] BCBS OF [place] [id number] S TNY [employer] RISK MANAGEMENT [id number] S [id number] [place]LL[place] BCBS [place] [id number] S [id number] Problems, Conditions, and Diagnoses Code Display Name Description Problem Type Effective Dates Data Source(s) Z86.39 Personal history of other endocrine, nut ritional and metabolic disease PERSONAL HISTORY OF ENDO, NUTRITIONAL AN Diagnosis 05/03/2021 08:43:00 AM [facility] E55.9 Vitamin D deficiency, unspecified VITAMIN D DEFI CIENCY, UNSPECIFIED Diagnosis 05/03/2021 08:43:00 AM [facility] Z98.84 Bariatric surgery status BARIATRIC SURGERY STATUS Diag nosis 05/03/2021 08:43:00 AM [facility] 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, 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 POSTSURGICAL MALABSORPTION, NOT ELSEWHERE CLASSIFIED Diagnosis 05/03/2021 08:43:00 AM [facility] K70.0 Alcoholic fatty liver ALCOHOLIC FATTY LIVER Diagnosis 04/12/2021 08:20:00 AM [facility] K80.20 Calculus of gallbladder without cholecys titis without obstruction CALCULUS OF GALLBLADDER W/O CHOLECYSTITIS W/O OBST Diagnosis 08:20:00 AM [facility] K75.81 Nonalcoholic steatohepatitis (MUÑIZ) NONALCOHOLIC STEATOHEPATITIS (MUÑIZ) Diagnosis 04/12/2021 08:20:00 AM [facility] K62.2 Anal prolapse ANAL PROLAPSE Diagnosis 01/29/2021 03:39:00 PM [facility] K92.2 Gastrointestinal hemorrhage, unspecified GASTROINTESTINAL HEMORRHAGE, UNSPECIFIED Diagnosis 01/29/2021 03:39:00 PM [facility] l K92.1 Melena Melena Diagnosis 12/02/2020 10:20:00 PM ED [facility] K92.2 Gastrointestinal hemorrhage, unspecified Gastrointestinal hemorrhage, unspecified Diagnosis 12/02/2020 10:20:00 PM [facility] Z79.899 Other bundle tier and labeler (current) drug therapy O THER SNF (CURRENT) DRUG THERAPY Diagnosis 12/01/2020 12:42:00 AM [facility] Z79.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 ANTICOAGULANTS Diagnosis 12/01/2020 12:42:00 AM [facility] R19.7 Diarrhea, unspecified DIARRHEA, UNSPECIFIED Diagnosis 12/01/2020 12:42:00 AM [facility] I10 Essential (primary) hypertension ESSENTIAL (PRIMARY) H YPERTENSION Diagnosis 12/01/2020 12:42:00 AM [facility] K92.1 Melena MELENA Diagnosis 12/01/2020 12:42:00 AM [facility] E66.01 Morbid (severe) obesity due to excess ca lories Morbid (severe) obesity due to excess ca Diagnosis 11/19/2020 07:52:00 AM [facility] U07.1 COVID-19 COVID-19 Diagnosis 11/14/2020 08:41:16 AM [facility] R94.31 Abnormal electrocardiogram [ECG] [EKG] A bnormal electrocardiogram (ECG) (EKG) Diagnosis 08/17/2020 03:52:18 PM [facility] E78.00 Pure hypercholesterolemia, unspecified P ure hypercholesterolemia, unspecified Diagnosis 08/17/2020 03:52:18 PM [facility] I10 Essential (primary) hypertension Essential (primary) h ypertension Diagnosis 08/17/2020 03:52:18 PM EST [facility] Z68.42 Body mass index (BMI) 45.0-49.9, adult B bradley mass index (BMI) 45.0-49.9, adult Diagnosis 08/17/2020 03:52:18 PM EST [facility] K21.9 Gastro-esophageal reflux disease without esophagitis Gastro-esophageal reflux disease without Diagnosis 08/10/2020 09:06:00 AM EST [facility] [id number] Essential hypertension Essential hypertension Problem 03/25/2021 12:00:00 AM EDT [facility] ([facility]) F32.9 Depression Depression [id number] 12/02/2020 12:00:00 AM ED [facility] F41.9 Anxiety Anxiety [id number] 12/02/2020 12:00:00 AM ED [facility] E11.9 Type 2 diabetes mellitus Type 2 diabetes mellitus 6457 200012/02/2020 12:00:00 AM EDT [facility] K92.2 GI bleed GI bleed [id number] 12/02/2020 12:00:00 AM ED [facility] N40.0 Benign prostatic hyperplasia Benign prostatic hyperpla olegario [id number] 11/20/2020 12:00:00 AM EDT [facility] I11.9 [id number] Hypertensive heart disease without heart failure Problem 06/29/2020 12:00:00 AM EST eCW1 ([facility]) Surgeries/Procedures Procedure Description Date Indications Data Source(s) OFFICE OUTPATIENT VISIT 25 MINUTES 03/26/2021 12:00:00 AM EDT [facility] ([facility]) BLOOD COUNT COMPLETE AUTOMATED <td>CBC</td><td>Routine </td><td>12/07/2020 3:17 PM EDT</td><td></td><td> </td> 12/07/2020 03:17:00 PM EDT [facility] GLUC BLD GLUC MNTR DEV CLEARED FDA SPEC HOME USE <td>P OCT GLUCOSE</td><td>Routine</td><td>12/07/2020 12:02 PM EDT</td><td></td><td> </td> 12/07/2020 12:02:00 PM EDT [facility] ACUTE GASTROINTESTINAL BLOOD LOSS IMAGING <td>NM GI BL OOD LOSS</td><td>Routine</td><td>12/07/2020 10:28 AM EDT</td><td></td><td> </td> 12/07/2020 10:28:00 AM EDT [facility] BLOOD COUNT COMPLETE AUTOMATED <td>CBC</td><td>Timed</ td><td>12/07/2020 6:51 AM EDT</td><td></td><td> </td> 12/07/2020 06:51:00 AM EDT [facility] GLUC BLD GLUC MNTR DEV CLEARED FDA SPEC HOME USE <td>P OCT GLUCOSE</td><td>Routine</td><td>12/06/2020 4:34 PM EDT</td><td></td><td> </td> 12/06/2020 04:34:00 PM EDT [facility] GLUC BLD GLUC MNTR DEV CLEARED FDA SPEC HOME USE <td>P OCT GLUCOSE</td><td>Routine</td><td>12/06/2020 2:29 PM EDT</td><td></td><td> </td> 12/06/2020 02:29:00 PM EDT [facility] GLUC BLD GLUC MNTR DEV CLEARED FDA SPEC HOME USE <td>P OCT GLUCOSE</td><td>Routine</td><td>12/06/2020 10:07 AM EDT</td><td></td><td> </td> 12/06/2020 10:07:00 AM EDT [facility] BLOOD COUNT COMPLETE AUTOMATED <td>CBC</td><td>STAT</t d><td>12/06/2020 8:41 AM EDT</td><td></td><td> </td> 12/06/2020 08:41:00 AM EDT [facility] GLUC BLD GLUC MNTR DEV CLEARED FDA SPEC HOME USE <td>P OCT GLUCOSE</td><td>Routine</td><td>12/05/2020 2:39 PM EDT</td><td></td><td> </td> 12/05/2020 02:39:00 PM EDT [facility] GLUC BLD GLUC MNTR DEV CLEARED FDA SPEC HOME USE <td>P OCT GLUCOSE</td><td>Routine</td><td>12/05/2020 12:06 PM EDT</td><td></td><td> </td> 12/05/2020 12:06:00 PM EDT [facility] GLUC BLD GLUC MNTR DEV CLEARED FDA SPEC HOME USE <td>P OCT GLUCOSE</td><td>Routine</td><td>12/05/2020 8:40 AM EDT</td><td></td><td> </td> 12/05/2020 08:40:00 AM EDT [facility] BLOOD COUNT COMPLETE AUTOMATED <td>CBC</td><td>Timed</ td><td>12/05/2020 6:40 AM EDT</td><td></td><td> </td> 12/05/2020 06:40:00 AM EDT [facility] GLUC BLD GLUC MNTR DEV CLEARED FDA SPEC HOME USE <td>P OCT GLUCOSE</td><td>Routine</td><td>12/04/2020 4:55 PM EDT</td><td></td><td> </td> 12/04/2020 04:55:00 PM EDT [facility] BLOOD COUNT COMPLETE AUTOMATED <td>CBC</td><td>STAT</t d><td>12/04/2020 2:50 PM EDT</td><td></td><td> </td> 12/04/2020 02:50:00 PM EDT [facility] GLUC BLD GLUC MNTR DEV CLEARED FDA SPEC HOME USE <td>P OCT GLUCOSE</td><td>Routine</td><td>12/04/2020 12:15 PM EDT</td><td></td><td> </td> 12/04/2020 12:15:00 PM EDT [facility] GLUC BLD GLUC MNTR DEV CLEARED FDA SPEC HOME USE <td>P OCT GLUCOSE</td><td>Routine</td><td>12/04/2020 10:30 AM EDT</td><td></td><td> </td> 12/04/2020 10:30:00 AM EDT [facility] BLOOD COUNT COMPLETE AUTOMATED <td>CBC</td><td>Timed</ td><td>12/04/2020 6:55 AM EDT</td><td></td><td> </td> 12/04/2020 06:55:00 AM EDT [facility] GLUC BLD GLUC MNTR DEV CLEARED FDA SPEC HOME USE <td>P OCT GLUCOSE</td><td>Routine</td><td>12/03/2020 6:22 PM EDT</td><td></td><td> </td> 12/03/2020 06:22:00 PM EDT [facility] PREPARE PLASMA <td>PREPARE PLASMA</td><td>R outine</td><td>12/03/2020 8:28 AM EDT</td><td></td><td> </td> 12/03/2020 08:28:00 AM EDT [facility] BLOOD COUNT COMPLETE AUTOMATED <td>CBC</td><td>Routine </td><td>12/03/2020 6:17 AM EDT</td><td></td><td> </td> 12/03/2020 06:17:00 AM EDT [facility] BASIC METABOLIC PANEL CALCIUM TOTAL <td>BASIC METABOLI C PANEL</td><td>Routine</td><td>12/03/2020 6:17 AM EDT</td><td></td><td> </td> 12/03/2020 06:17:00 AM EDT [facility] TRANSFUSE PLASMA <td>TRANSFUSE PLASMA</td><td >STAT</td><td>12/02/2020 11:27 PM EDT</td><td></td><td></td> 12/02/2020 11:27:00 PM EDT - 12/03/2020 12:57:00 AM EDT [facility] PREPARE PLASMA <td>PREPARE PLASMA</td><td>S TAT</td><td>12/02/2020 11:10 PM EDT</td><td></td><td> </td> 12/02/2020 11:10:00 PM EDT [facility] GLUC BLD GLUC MNTR DEV CLEARED FDA SPEC HOME USE <td>P OCT GLUCOSE</td><td>Routine</td><td>12/02/2020 10:55 PM EDT</td><td></td><td> </td> 12/02/2020 10:55:00 PM EDT [facility] COVID/FLU AB/RSV PCR <td>COVID/FLU AB/RSV PCR</td ><td>STAT</td><td>12/02/2020 10:48 PM EDT</td><td></td><td> </td> 12/02/2020 10:48:00 PM EDT [facility] BLOOD TYPING ABO <td>TYPE AND SCREEN</td><td> Routine</td><td>12/02/2020 10:48 PM EDT</td><td></td><td> </td> 12/02/2020 10:48:00 PM EDT [facility] THROMBOPLASTIN TIME PARTIAL PLASMA/WHOLE BLOOD <td>APTT</td><td>STAT</td><td>12/02/2020 10:47 PM EDT</td><td></td><td> </td> 12/02/2020 10:47:00 PM EDT [facility] PROTHROMBIN TIME <td>PROTIME-INR</td><td>STAT </td><td>12/02/2020 10:47 PM EDT</td><td></td><td> </td> 12/02/2020 10:47:00 PM EDT [facility] BLOOD COUNT COMPLETE AUTO&AUTO DIFRNTL WBC COUNT <td>C BC AND DIFFERENTIAL</td><td>STAT</td><td>12/02/2020 10:47 PM EDT</td><td></td><td> </td> 12/02/2020 10:47:00 PM EDT [facility] MAGNESIUM <td>MAGNESIUM</td><td>STAT</ td><td>12/02/2020 10:47 PM EDT</td><td></td><td> </td> 12/02/2020 10:47:00 PM EDT [facility] COMPREHENSIVE METABOLIC PANEL <td>COMPREHENSIVE METABO LIC PANEL</td><td>STAT</td><td>12/02/2020 10:47 PM EDT</td><td></td><td> </td> 12/02/2020 10:47:00 PM EDT [facility] GLUC BLD GLUC MNTR DEV CLEARED FDA SPEC HOME USE <td>P OCT GLUCOSE</td><td>Routine</td><td>11/20/2020 12:30 PM EDT</td><td></td><td> </td> 11/20/2020 12:30:00 PM EDT [facility] GLUC BLD GLUC MNTR DEV CLEARED FDA SPEC HOME USE <td>P OCT GLUCOSE</td><td>Routine</td><td>11/20/2020 5:50 AM EDT</td><td></td><td> </td> 11/20/2020 05:50:00 AM EDT [facility] GLUC BLD GLUC MNTR DEV CLEARED FDA SPEC HOME USE <td>P OCT GLUCOSE</td><td>Routine</td><td>11/19/2020 11:30 PM EDT</td><td></td><td> </td> 11/19/2020 11:30:00 PM EDT [facility] GLUC BLD GLUC MNTR DEV CLEARED FDA SPEC HOME USE <td>P OCT GLUCOSE</td><td>Routine</td><td>11/19/2020 6:05 PM EDT</td><td></td><td> </td> 11/19/2020 06:05:00 PM EDT [facility] LEVEL IV SURG PATHOLOGY GROSS&MICROSCOPIC EXAM <td>[facility] HISTOLOGY</td><td>Routine</td><td>11/19/2020 1:11 PM EDT</td><td></td><td> </td> 11/19/2020 01:11:00 PM EDT [facility] GLUC BLD GLUC MNTR DEV CLEARED FDA SPEC HOME USE <td>P OCT GLUCOSE</td><td>Routine</td><td>11/19/2020 1:04 PM EDT</td><td></td><td> </td> 11/19/2020 01:04:00 PM EDT [facility] LAPS GSTR RSTCV PX W/BYP GERTRUDIS-EN-Y LIMB <150 CM <td>CR EATION, GASTRIC BYPASS, GERTRUDIS-EN-Y, LAPAROSCOPIC, WITH SLEEVE GASTRECTOMY IF INDICATED, WITH LIVER BIOPSY IF INDICATED, WITH HIATAL HERNIA REPAIR IF INDICATED, WITH LAPAROTOMY IF INDICATED</td><td></td><td>11/19/2020 10:18 AM EDT</td><td> Morbid obesity Hepatomegaly Fatty liver</td><td></td> 11/19/2020 10:18:00 AM EDT - 11/19/2020 01:28:00 PM EDT Fatty liverHepatomegalyMorbid obesity [facility] Fatty liver Hepatomegaly Morbid obesity GLUC BLD GLUC MNTR DEV CLEARED FDA SPEC HOME USE <td>P OCT GLUCOSE</td><td>Routine</td><td>11/19/2020 9:07 AM EDT</td><td></td><td> </td> 11/19/2020 09:07:00 AM EDT [facility] BLOOD COUNT COMPLETE AUTOMATED <td>CBC</td><td>Routine </td><td>11/06/2020 1:50 PM EDT</td><td> Morbid obesity</td><td> </td> 11/06/2020 01:50:00 PM EDT Morbid obesity [facility] Morbid obesity BLOOD TYPING ABO <td>TYPE AND SCREEN</td><td> Routine</td><td>11/06/2020 1:50 PM EDT</td><td> Morbid obesity</td><td> </td> 11/06/2020 01:50:00 PM EDT Morbid obesity [facility] Morbid obesity THYROID STIMULATING HORMONE TSH <td>TSH</td><td>Routin e</td><td>11/06/2020 1:50 PM EDT</td><td> Morbid obesity</td><td> </td> 11/06/2020 01:50:00 PM EDT Morbid obesity [facility] Morbid obesity HEMOGLOBIN GLYCOSYLATED A1C <td>HEMOGLOBIN A1C</td><td>Routine</td><td>11/06/2020 1:50 PM EDT</td><td> Morbid obesity</td><td> </td> 11/06/2020 01:50:00 PM EDT Morbid obesity [facility] Morbid obesity COMPREHENSIVE METABOLIC PANEL <td>COMPREHENSIVE METABO LIC PANEL</td><td>Routine</td><td>11/06/2020 1:50 PM EDT</td><td> Morbid obesity</td><td> </td> 11/06/2020 01:50:00 PM EDT Morbid obesity [facility] Morbid obesity ECG ROUTINE ECG W/LEAST 12 LDS TRCG ONLY W/O I&R <td>E CG 12- LEAD</td><td>Routine</td><td>11/06/2020 1:48 PM EDT</td><td> Morbid obesity</td><td></td> 11/06/2020 01:48:16 PM EDT Morbid obesity [facility] Morbid obesity UPPER NDSC BIOPSY SINGLE/MULTIPLE 08/10/2020 12:00:00 AM EST [facility] ([facility]) Results ID Date Data Source [id number] 05/19/2021 09:30:00 AM EST [facility] Name Value Range Interpretation Code Description Data Nahomi rce(s) Supporting Document(s) SARS-CoV-2 (COVID-19) RNA [Presence] in Respiratory specimen by GENI with probe detection Not Detected [facility] This lab was ordered by [facility] and reported by [employer]. ID Date Data Source [id number] 05/04/2021 08:06:00 AM EST [facility] Name Value Range Interpretation Code Description Data Nahomi rce(s) Supporting Document(s) VITAMIN D, 25-HYDROXY 27.6 ng/mL 30.0-100.0 [facility] Vitamin D deficiency has been defined by the [place] of[place]icine and an Endocrine Society practice guideline as alevel of serum 25-OH vitamin D less than 20 ng/mL (1,2).The Endocrine Society went on to further define vitamin Dinsufficiency as a level between 21 and 29 ng/mL (2).1. IOM ([place] of [employer]). 2010. Dietary reference intakes for calcium and D. [place]: The National Academies Press.2. Barb MF, Amy NC, Kelsi-Oscar GREWAL, et al. Evaluation, treatment, and prevention of vitamin D deficiency: an Endocrine Society clinical practice guideline. JCEM. 2010; 96(7):1911- 30.Performed at: RN - [facility] [place] [id number] Director: Cherry Pearson MD, Phone: [phone] ID Date Data Source [id number] 05/04/2021 10:07:00 AM EST [facility] l Name Value Range Interpretation Code Description Data Nahomi rce(s) Supporting Document(s) VITAMIN B12 442 pg/mL [id number] [facility] Performed at: [facility] [id number] Director: Cherry Pearson MD, Phone: [phone] ID Date Data Source [id number] 05/04/2021 02:08:00 PM EST [facility] l Name Value Range Interpretation Code Description Data Nahomi rce(s) Supporting Document(s) FOLATE, HEMOLYSATE 541.0 ng/mL Not Estab. [facility] spital HEMATOCRIT 33.3 % 37.5-51.0 [facility] FOLATE, RBC 1625 ng/mL >498 [facility] Performed at: [facility] [id number] Director: Cherry Pearson MD, Phone: [phone] ID Date Data Source [id number] 05/04/2021 08:06:00 AM EST [facility] Name Value Range Interpretation Code Description Data Nahomi rce(s) Supporting Document(s) Vitamin D, 25-Hydroxy 27.6 ng/mL 30.0-100.0 Below low normal [facility] Vitamin D deficiency has been defined by the [place] of[place]icine and an Endocrine Society practice guideline as alevel of serum 25-OH vitamin D less than 20 ng/mL (1,2).The Endocrine Society went on to further define vitamin Dinsufficiency as a level between 21 and 29 ng/mL (2).1. IOM ([place] of [employer]). 2010. Dietary reference intakes for calcium and D. [place]: The National Academies Press.2. Barb MF, Amy NC, Kelsi-Oscar GREWAL, et al. Evaluation, treatment, and prevention of vitamin D deficiency: an Endocrine Society clinical practice guideline. JCEM. 2010; 96(7):1911-30. ID Date Data Source [id number] 05/04/2021 10:05:00 AM EST [facility] Name Value Range Interpretation Code Description Data Nahomi rce(s) Supporting Document(s) Vitamin B12 442 pg/mL [id number] [facility] ID Date Data Source [id number] 05/04/2021 02:05:00 PM EST [facility] Name Value Range Interpretation Code Description Data Nahomi rce(s) Supporting Document(s) Folate, Hemolysate 541.0 ng/mL Not Estab. [facility] Hematocrit 33.3 % 37.5-51.0 Below low normal [facility] Folate, RBC 1625 ng/mL >498 [facility] ID Date Data Source [id number] 05/04/2021 09:31:00 AM [facility] l Name Value Range Interpretation Code Description Data Nahomi rce(s) Supporting Document(s) FERRITIN 12 ng/mL 26-388 L [facility] ID Date Data Source [id number] 05/03/2021 09:46:00 AM [facility] l Name Value Range Interpretation Code Description Data Nahomi rce(s) Supporting Document(s) MAGNESIUM 2.1 mg/dL 1.8-2.4 [facility] ID Date Data Source [id number] 05/03/2021 09:46:00 AM [facility] l Name Value Range Interpretation Code Description Data Nahomi rce(s) Supporting Document(s) IRON 52 ug/dL 65-175 [facility] TIBC 347 ug/dL 250-450 [facility] % SATURATION 15 % 20-50 L [facility] ID Date Data Source [id number] 05/03/2021 09:46:00 AM [facility] l Name Value Range Interpretation Code Description Data Nahomi rce(s) Supporting Document(s) PHOSPHOROUS 4.3 mg/dL 2.5-4.9 [facility] ID Date Data Source [id number] 05/03/2021 09:46:00 AM [facility] l Name Value Range Interpretation Code Description Data Nahomi rce(s) Supporting Document(s) GLUCOSE 102 mg/dL 74-106 [facility] BLOOD UREA NITROGEN 8 mg/dL 7-18 [facility] CREATININE 0.67 mg/dl 0.70-1.30 L [facility] SODIUM 142 mmol/L 136-145 [facility] POTASSIUM 3.8 mmol/L 3.5-5.1 [facility] CHLORIDE 104 mmol/L 98-107 [facility] CO2 29 mmol/L 21-32 [facility] CALCIUM 8.7 mg/dL 8.5-10.1 [facility] ANION GAP 9.0 mmol/L 5-12 [facility] GLOMERULAR FILTRATION RATE >90 mL/min [facility] GFR IS CALCULATED IN mL/min/1.73m2 JOVANY L FUNCTION: >90MILDLY DECREASED: 60-89MILDY TO MODERATELY DECREASED: 45-59 MODERATELY TO SEVERELY DECREASED: 30-44SEVERELY DECREASED: 15-29RENAL FAILURE: <15 AST 12 U/L 15-37 L [facility] ALT 22 U/L 16-63 [facility] ALKALINE PHOSPHATASE 79 U/L 46-116 [facility] pital TOTAL BILIRUBIN 0.8 mg/dL 0.2-1.0 [facility] TOTAL PROTEIN 7.1 g/dL 6.4-8.2 [facility] ALBUMIN 3.7 gm/dL 3.4-5.0 [facility] ID Date Data Source [id number] 05/03/2021 09:30:00 AM [facility] Name Value Range Interpretation Code Description Data Nahomi rce(s) Supporting Document(s) [id number] 5.2 % 3.8-5.6 [facility] Diabetic > or = to 6.5%Prediabetes 5.7-6 .4%Normal <5.7 ESTIMATED AVERAGE GLUCOSE 102.5 mg/dL [facility] ID Date Data Source [id number] 05/03/2021 09:10:00 AM [facility] Name Value Range Interpretation Code Description Data [facility] Supporting Document(s) WHITE BLOOD COUNT 5.7 K/mm3 4.0-10.0 [facility] al RED BLOOD COUNT 4.14 M/mm3 4.50-6.00 L [facility] HEMOGLOBIN 10.9 gm/dL 14.0-18.0 L [facility] HEMATOCRIT 33.4 % 42.0-54.0 L [facility] MEAN CELL VOLUME 80.7 fl 80-96 [facility] MEAN CORPUSCULAR HEMOGLOBIN 26.3 pg 27.0-31.0 L [facility] MEAN CORPUSCULAR HGB CONC 32.6 g/dl 32.0-36.0 [facility] RED CELL DISTRIBUTION WIDTH 14.2 % 10.0-14.5 [facility] PLATELET COUNT 292 K/mm3 172-450 [facility] MEAN PLATELET VOLUME 10.7 fl 9.0-13.0 [facility] pital GRAN % 70.2 % 50-80.0 [facility] IG% 0.0 % 0.0-0.2 [facility] LYMPH % 19.5 % 25.0-50.0 L [facility] MONO % 8.4 % 2.0-10.0 [facility] EOS % 1.6 % 0-5.0 [facility] BASO % 0.3 % 0.0-2.0 [facility] GRAN # 4.0 K/mm3 2.0-8.00 [facility] IG# 0.0 K/mm3 0.0-0.2 [facility] LYMPH # 1.1 K/mm3 1.0-5.0 [facility] MONO # 0.5 K/mm3 0.10-1.20 [facility] EOS # 0.1 K/mm3 0.0-0.5 [facility] BASO # 0.0 K/mm3 0.0-0.2 [facility] ID Date Data Source [id number] 04/12/2021 09:00:00 AM EDT [facility] l DATE OF EXAMINATION: 04/12/2021 7:57 EDT ABDOMEN LIMITED COMPARED TO: CT scan of 12/01/2020 HISTORY: Nonalcoholic steatohepatitis Real-time ultrasound imaging was performed utilizing B-mode/king scale and colorDoppler imaging where applicable. FINDINGS: Nonobstructive stones are seen within the gallbladder lumen. Gallbladder walland common bile duct measured 12 5 mm respectively. Abdominal aorta is 2 cm,within normal range. Liver is enlarged measuring 20 cm with moderate to severefatty infiltration. Hyperechoic areas are seen within the hepatic parenchyma.These were not detectable on patient's prior CT scan. Intrahepatic masses shouldbe considered. Contrast-enhanced MRI is recommended for further evaluation.Pancreas is obscured by overlying bowel gas. Right kidney measures 13 cm withouthydronephrosis. IMPRESSION: Few nonobstructing stones within the gallbladder lumen. Moderate severe fatty infiltration of liver. Hyperechoic areas are seen withinthe hepatic parenchyma which are not detectable on prior CT scan. I do thereforestrongly encourage contrast-enhanced MRI for further evaluation. Electronically signed in [id number] by: Jozef Ortgea M.D. 04/12/2021 8:54 EDT Name Value Range Interpretation Code Description Data Nahomi rce(s) Supporting Document(s) ID Date Data Source [id number] 04/12/2021 08:37:00 AM EDT [facility] ([facility]) Name Value Range Interpretation Code Description Data Nahomi rce(s) Supporting Document(s) Deprecated Mitochondria M2 IgG Ab [Units/volume] in Se rum Laboratory test result 0.0-20.0 [facility] ([facility]) Negative 0.0 - 20.0 Equivocal 20.1 - 24.9 Positive >24.9 Mitochondrial (M2) Antibodies are found in 90-96% of patients with primary biliary cirrhosis. Performed at: - [facility] [address] [id number] Senior Paralegal: Cherry Pearson MD, Phone: [phone] ID Date Data Source [id number] 04/12/2021 08:37:00 AM EDT [facility] ([facility]) Name Value Range Interpretation Code Description Data Nahomi rce(s) Supporting Document(s) Laboratory test finding (navigational concept) Laboratory test result [facility] ([facility]) Laboratory test finding (navigational concept) 11 IU/ml 0-9 [facility] ([facility]) <content>Negative <5</content>
<content>Equivocal 5 - 9</content>
<content>Positive >9</content>
<content></content> Laboratory test finding (navigational concept) 0.4 AI 0.0-0.9 [facility] ([facility]) Laboratory test finding (navigational concept) Laboratory test resu lt 0.0-0.9 [facility] ([facility]) Laboratory test finding (navigational concept) Laboratory test resu lt 0.0-0.9 [facility] ([facility]) Laboratory test finding (navigational concept) Laboratory test resu lt 0.0-0.9 [facility] ([facility]) Laboratory test finding (navigational concept) Laboratory test resu lt 0.0-0.9 [facility] ([facility]) Laboratory test finding (navigational concept) Laboratory test resu lt 0.0-0.9 [facility] ([facility]) Laboratory test finding (navigational concept) Laboratory test resu lt 0.0-0.9 [facility] ([facility]) Laboratory test finding (navigational concept) Laboratory test result [facility] ([facility]) Autoantibody Disea se Association Condition Frequency -------- --------- Antinuclear Antibody, SLE, mixed connective Direct (RADHA-D) tissue diseases -------- --------- dsDNA SLE 40 - 60% -------- --------- Chromatin Drug induced SLE 90% SLE 48 - 97% -------- --------- SSA (Ro) SLE 25 - 35% Sjogren's Syndrome 40 - 70% Lupus 100% -------- --------- SSB (La) SLE 10% Sjogren's Syndrome 30% ------- --------- Sm (anti-Oconnor) SLE 15 - 30% ------- --------- FILM PROCESSING SHIFT SUPERVISOR Mixed Connective Tissue Disease 95% (U1 nRNP, SLE 30 - 50% anti-ribonucleoprotein) Polymyositis and/or Dermatomyositis 20% -------- --------- Scl-70 (antiDNA Scleroderma (diffuse) 20 - 35% topoisomerase) Crest 13% -------- --------- Mariia-1 Polymyositis and/or Dermatomyositis 20 - 40% -------- --------- Centromere B Scleroderma - Crest variant 80% Performed at: [facility] [address] [id number] Senior Paralegal: Cherry Pearson MD, Phone: [phone] Laboratory test finding (navigational concept) Laboratory test resu lt 0.0-0.9 [facility] ([facility]) ID Date Data Source [id number] 04/12/2021 08:37:00 AM EDT [facility] ([facility]) Name Value Range Interpretation Code Description Data Nahomi rce(s) Supporting Document(s) Hepatitis A virus IgM Ab [Units/volume] in Serum by elisha Laboratory test result [facility] ([facility]) Performed at: [facility] [id number] Senior Paralegal: Cherry Pearson MD, Phone: [phone] Ceruloplasmin [Mass/volume] in Serum or Plasma 25.6 mg/dL 16.0-31.0 [facility] ([facility]) IgA [Mass/volume] in Serum or Plasma 266 mg/dL 90-386 [facility] ([facility]) Hepatitis B virus surface Ag [Presence] in Serum or Pl asma by Immunoassay Laboratory test result [facility] ([facility]) Hepatitis C virus Ab [Units/volume] in Serum by Immuno assay Laboratory test result 0.0-0.9 [facility] ([facility]) <content>INFCE Result Units: s/co ratio< /content>
<content>Negative: < 0.8</content>
<content>Indeterminate: 0.8 - 0.9</content>
<content>Positive: > 0.9</content>
<content>The CDC recommends that a positive HCV antibody result</content>
<content>be followed up with a HCV Nucleic Acid Amplification</content>
<content>test ([id number]).</content>
<content></content> Hepatitis B virus surface Ab [Units/volume] in Serum b y Radioimmunoassay (JORJE) Laboratory test result [facility] ([facility]) Non Reactive: Inconsistent with immunity , less than 10 mIU/mL Reactive: Consistent with immunity, greater than 9.9 mIU/mL Tissue transglutaminase IgA Ab [Units/volume] in Serum Labor atory test result 0-3 [facility] ([facility]) Negative 0 - 3 Weak Positive 4 - 10 Positive >10 Tissue Transglutaminase (tTG) has been identified as the endomysial antigen. Studies have demonstr- ated that endomysial IgA antibodies have over 99% specificity for gluten sensitive enteropathy. Performed at: [facility] [id number] Senior Paralegal: Cherry Pearson MD, Phone: [phone] ID Date Data Source [id number] 04/12/2021 08:37:00 AM EDT [facility] Name Value Range Interpretation Code Description Data Nahomi rce(s) Supporting Document(s) Glu 95 mg/dL 74-106 [facility] ([facility] BUN 7 mg/dL 7-18 [facility] ([facility] Cre 0.65 mg/dL 0.70-1.30 [facility] ([facility]) Na 144 mmol/L 136-145 [facility] ([facility]) K 3.9 mmol/L 3.5-5.1 [facility] ([facility]) CL 104 mmol/L 98-107 [facility] ([facility]) Co2 30 mmol/L 21-32 [facility] ([facility] Gap 10.0 mmol/L 5-12 [facility] ([facility]) CA 9.1 mg/dL 8.5-10.1 [facility] ([facility] Ast 10 U/L 15-37 [facility] ([facility] GFR Laboratory test result IA [facility] ([facility]) <content>GFR IS CALCULATED IN mL/min/1.73m2</content>
<content></content>
<content>NORMAL FUNCTION: >90</content>
<content>MILDLY DECREASED: 60-89</content>
<content>MILDY TO MODERATELY DECREASED: 45-59</content>
<content>MODERATELY TO SEVERELY DECREASED: 30-44</content>
<content>SEVERELY DECREASED: 15- 29</content>
<content>RENAL FAILURE: <15</content>
<content></content> Alk 76 U/L 46-116 [facility] ([facility] Alt 25 U/L 16-63 [facility] ([facility]) Tbili 0.7 mg/dL 0.2-1.0 [facility] ([facility] Alb 3.6 gm/dL 3.4-5.0 [facility] ([facility] TP 7.1 g/dL 6.4-8.2 [facility] ([facility] ID Date Data Source [id number] 04/12/2021 08:37:00 AM EDT [facility] ([facility] Name Value Range Interpretation Code Description Data Nahomi rce(s) Supporting Document(s) aPTT in Platelet poor plasma by Coagulation assay 25.5 s 21.2-27. 3 [facility] ([facility]) FAX [phone] ID Date Data Source [id number] 04/12/2021 08:37:00 AM EDT [facility] Name Value Range Interpretation Code Description Data Nahomi rce(s) Supporting Document(s) PTP 11.4 s 9.1-11.6 [facility] ([facility] Inr 1.10 0.87-1.06 [facility] ([facility] ID Date Data Source [id number] 04/12/2021 08:37:00 AM EDT [facility] ([facility] Name Value Range Interpretation Code Description Data Nahomi rce(s) Supporting Document(s) RBC 3.89 M/mm3 4.50-6.00 [facility] ([facility]) WBC 6.3 K/mm3 4.0-10.0 [facility] ([facility] HCT 32.0 % 42.0-54.0 [facility] ([facility] HGB 10.5 gm/dL 14.0-18.0 [facility] ([facility]) MCV 82.3 fl 80-96 [facility] ([facility] MCH 27.0 pg 27.0-31.0 [facility] ([facility] PLT 359 K/mm3 172-450 [facility] ([facility] MCHC 32.8 g/dL 32.0-36.0 [facility] ([facility] RDW 15.0 % 10.0-14.5 [facility] ([facility] GR% 74.1 % 50-80.0 [facility] ([facility] MPV 10.2 fl 9.0-13.0 [facility] ([facility] Ly% 17.6 % 25.0-50.0 [facility] ([facility] Laboratory test finding (navigational concept) 0.0 % 0.0-0.2 [facility] ([facility]) Eo% 1.3 % 0-5.0 [facility] ([facility] Ba% 0.3 % 0.0-2.0 [facility] ([facility] Mo% 6.7 % 2.0-10.0 [facility] ([facility] Laboratory test finding (navigational concept) 0.0 K/mm3 0.0-0.2 [facility] ([facility]) GR# 4.6 K/mm3 2.0-8.00 [facility] ([facility] Mo# 0.4 K/mm3 0.10-1.20 [facility] ([facility] Ly# 1.1 K/mm3 1.0-5.0 [facility] ([facility] Ba# 0.0 K/mm3 0.0-0.2 [facility] ([facility] Eo# 0.1 K/mm3 0.0-0.5 [facility] ([facility] ID Date Data Source [id number] 04/12/2021 09:42:[address] [phone] Name Value Range Interpretation Code Description Data Nahomi rce(s) Supporting Document(s) GLUCOSE 95 mg/dL 74-106 [facility] BLOOD UREA NITROGEN 7 mg/dL 7-18 [facility] ital CREATININE 0.65 mg/dl 0.70-1.30 L [facility] SODIUM 144 mmol/L 136-145 [facility] POTASSIUM 3.9 mmol/L 3.5-5.1 [facility] CHLORIDE 104 mmol/L 98-107 [facility] CO2 30 mmol/L 21-32 [facility] CALCIUM 9.1 mg/dL 8.5-10.1 [facility] ANION GAP 10.0 mmol/L 5-12 [facility] GLOMERULAR FILTRATION RATE >90 mL/min [facility] GFR IS CALCULATED IN mL/min/1.73m2 JOVANY L FUNCTION: >90MILDLY DECREASED: 60-89MILDY TO MODERATELY DECREASED: 45-59 MODERATELY TO SEVERELY DECREASED: 30-44SEVERELY DECREASED: 15-29RENAL FAILURE: <15 AST 10 U/L 15-37 L [facility] ALT 25 U/L 16-63 [facility] ALKALINE PHOSPHATASE 76 U/L 46-116 [facility] pital TOTAL BILIRUBIN 0.7 mg/dL 0.2-1.0 [facility] TOTAL PROTEIN 7.1 g/dL 6.4-8.2 [facility] ALBUMIN 3.6 gm/dL 3.4-5.0 [facility] ID Date Data Source [id number] FIBROSURE 04/15/2021 06:09:00 AM [facility] Name Value Range Interpretation Code Description Data Nahomi e(s) Supporting Document(s) FIBROSIS SCORE 0.08 0.00-0.21 [facility] FIBROSIS STAGE Comment . [facility] F0 - No fibrosis STEATOSIS SCORE 0.40 0.00-0.30 H [facility] STEATOSIS GRADE S1 - Mild Steatosis . [facility] MUÑIZ SCORE 0.50 0.25 [facility] MUÑIZ GRADE Comment . [facility] N1 - Borderline or probable MUÑIZ HEIGHT: 77 in . [facility] WEIGHT: 301 LBS . [facility] ALPHA 2-MACROGLOBULINS,QN 131 mg/dL 110-276 [facility] HAPTOGLOBIN 176 mg/dL 17-317 [facility] APOLIPOPROTEIN A-1 99 mg/dL 101-178 L [facility] ale BILIRUBIN,TOTAL 0.5 mg/dL 0.0-1.2 [facility] GGT 12 IU/L 0-65 [facility] ALT 14 IU/L 0-55 [facility] AST 13 IU/L 0-40 [facility] CHOLESTEROL 133 mg/dL 100-199 [facility] GLUCOSE 96 mg/dL 65-99 [facility] TRIGLYCERIDES 101 mg/dL 0-149 [facility] INTERPRETATIONS: Comment . [facility] Quantitative results of 10 biochemicals in combination withage, gender, height, and weight, are analyzed using acomputational algorithm to provide a quantitative surrogatemarker (0.0-1.0) of liver fibrosis (Metavir F0-F4), hepaticsteatosis (0.0-1.0, S0-S3), and Non-Alcoholic Steato-Hepatitis (MUÑIZ) (0.0-0.75, N0-N2). The absence of steatosis(S<0.38) precludes the diagnosis of MUÑIZ.Fibrosis marker: In a study of 171 Non-Alcoholic FattyLiver Disease (NAFLD) patients where 23% had significantNAFLD fibrosis (Metavir F2-F4) and 11% had cirrhosis byliver biopsy, a fibrosis result of >0.3 yielded asensitivity of 83% and a specificity of 78% for thedetection of significant fibrosis(1).Steatosis Marker: In a population of 744 patients (583 HCV,18 HBV, 69 NAFLD, and 74 alcoholic disease patients), where36% had significant steatosis (>5%) on a liver biopsy, asteatosis score >0.5 had a sensitivity of 71% and aspecificity of 72% for identification of significantsteatosis(2).MUÑIZ marker: In a population of 257 NAFLD patients, where62% had at least some MUÑIZ by liver biopsy, a prediction ofNASH had a sensitivity of 88% for identifying MUÑIZ and aspecificity of 50%(3). FIBROSIS SCORING Comment . [facility] <=0.21 = Stage F0 - No fibrosis0.21 - 0.27 = Stage F0 - F10.27 - 0.31 = Stage F1 - Portal fibrosis0.31 - 0.48 = Stage F1 - F20.48 - 0.58 = Stage F2 - Bridging fibrosis with few septa0.58 - 0.72 = Stage F3 - Bridging fibrosis with many septa0.72 - 0.74 = Stage F3 - F4 >0.74 = Stage F4 - Cirrhosis STEATOSIS GRADING: Comment . [facility] ale < 0.30 = S0 - No Steatosis0.30 to 0.38 = S0 - S10.38 to 0.48 = S1 - Minimal Steatosis0.48 to 0.57 = S1 - S20.57 to 0.67 = S2 - Moderate Steatosis0.67 to 0.69 = S2 - S3 > 0.69 = S3 - Marked or Severe Steatosis MUÑIZ SCORING Comment . [facility] 0.25 = N0 - Not NASH0.50 = N1 - Borderli ne or probable NASH0.75 = N2 - MUÑIZ LIMITATIONS: Comment . [facility] MUÑIZ FibroSure is recommended for patien ts with suspectednon-alcoholic fatty liver disease. It is not recommendedfor patients with other liver diseases. It is also notrecommended in patients with Gilbert Disease, acutehemolysis, acute viral hepatitis, drug induced hepatitis,genetic liver disease, autoimmune hepatitis and/or extra-hepatic cholestasis. Any of these clinical situations maylead to inaccurate quantitative predictions of fibrosis. COMMENT: Comment . [facility] This test was developed and its performa nce characteristics determinedby [employer]. It has not been cleared or approved by the Food and DrugAdministration. The FDA has determined that such clearance orapproval is not necessary.For questions regarding this report please contactsanta fe indian hospitaltomer service at .References:1. Za Tovar al. Diagnostic Value of Biochemical Markers (FibroTest) for the prediction of Liver Fibrosis in patients with Non-Alcoholic Fatty Liver Disease. BMC Gastroenterology 2006; 6:6.2. Basim Beal. et al. The Diagnostic Value of Biomarkers (Steato Test) for the Prediction of Liver Steatosis. Comparative Hepatol. 2005; 4:10.3. Basim Beal, Mei Mendenhall, et al. Diagnostic value of biochemical markers (MUÑIZ TEST) for the prediction of non alcohol steato hepatitis in patients with non- alcoholic fatty liver disease. BMC Gastroenterology 2006; 6:34 doi:10.1186/7935-584B-6-34.Performed at: [facility], [place] [id number] Director: Nic Velázquez MD, Phone: [phone] ID Date Data Source [id number] 04/13/2021 04:05:00 PM EDT [facility] l Name Value Range Interpretation Code Description Data Nahomi rce(s) Supporting Document(s) ACTIN (SMOOTH MUSCLE) AB 5 Units 0-19 [facility] Negative 0 - 19 Weak positive 20 - 30 Moderate to strong positive > 30 Actin Antibodies are found in 52-85% of patients with autoimmune hepatitis or chronic active hepatitis and in 22% of patients with primary biliary cirrhosis. ID Date Data Source [id number] 04/13/2021 02:09:00 PM T [facility] Name Value Range Interpretation Code Description Data Nahomi e(s) Supporting Document(s) RADHA DIRECT Positive Negative [facility] ANTI-DNA (DS) AB QN 11 IU/mL 0-9 H [facility] ital Negat alycia <5 Equivocal 5 - 9 Positive >9 FILM PROCESSING SHIFT SUPERVISOR ANTIBODIES 0.4 AI 0.0-0.9 [facility] OCONNOR ANTIBODIES <0.2 AI 0.0-0.9 [facility] l ANTISCLERODERMA-70 ANTIBODIES <0.2 AI 0.0-0.9 [facility] SJOGREN'S ANTI-SS-A <0.2 AI 0.0-0.9 [facility] SJOGREN'S ANTI-SS-B <0.2 AI 0.0-0.9 [facility] ANTICHROMATIN ANTIBODIES <0.2 AI 0.0-0.9 [facility] ANTI-MARIIA-1 <0.2 AI 0.0-0.9 [facility] ANTI-CENTROMERE B ANTIBODIES <0.2 AI 0.0-0.9 [facility] SEE BELOW: Comment . [facility] Autoantibody Disea se Association Condition Frequency ---- ---------Antinuclear Antibody, SLE, mixed connectiveDirect (RADHA-D) tissue diseases ---------dsDNA SLE 40 - 60% ---------Chromatin Drug induced SLE 90% SLE 48 - 97% ---------SSA (Ro) SLE 25 - 35% Sjogren's Syndrome 40 - 70% Lupus 100% ---------SSB (La) SLE 10% Sjogren's Syndrome 30% ---------Sm (anti-Oconnor) SLE 15 - 30% ---------FILM PROCESSING SHIFT SUPERVISOR Mixed Connective Tissue Disease 95%(U1 nRNP, SLE 30 - 50%anti-ribonucleoprotein) P olymyositis and/or Dermatomyositis 20% ---------Scl-70 (antiDNA Scleroderma (diffuse) 20 - 35%topoisomerase) Crest 13% ---------Mariia-1 Polymyositis and/or Dermatomyositis 20 - 40% ---------Centromere B Scleroderma - Crest variant 80%Performed at: [facility] [id number] Director: Cherry Pearson MD, Phone: [phone] ID Date Data Source [id number] 04/13/2021 08:06:[facility] Name Value Range Interpretation Code Description Data Nahomi rce(s) Supporting Document(s) HEP B SURFACE AB, QUAL Non Reactive . [facility] Non Reactive: Inconsistent with immunity, less than 10 mIU/mL Reactive: Consistent with immunity, greater than 9.9 mIU/mL ID Date Data Source [id number] 04/13/2021 04:05:00 PM [facility] Name Value Range Interpretation Code Description Data Nahomi rce(s) Supporting Document(s) MITOCHONDRIAL (M2) ANTIBODY <20.0 Units 0.0-20.0 [facility] Negative 0.0 - 20.0 Equivocal 20.1 - 24.9 Positive > 24.9Mitochondrial (M2) Antibodies are found in 90-96% ofpatients with primary biliary cirrhosis.Performed at: [facility] [id number] Director: Cherry Pearson MD, Phone: [phone] ID Date Data Source [id number] 04/13/2021 08:06:00 AM [facility] l Name Value Range Interpretation Code Description Data Nahomi rce(s) Supporting Document(s) HCV ANTIBODY <0.1 0.0-0.9 [facility] INFCE Result Units: s/co ratio Negative: < 0.8 Indeterminate: 0.8 - 0.9 Positive: > 0.9 The CDC recommends that a positive HCV antibody result be followed up with a HCV Nucleic Acid Amplification test ([id number]). ID Date Data Source [id number] 04/13/2021 08:06:00 AM EDT [facility] Name Value Range Interpretation Code Description Data Nahomi rce(s) Supporting Document(s) IMMUNOGLOBULIN A, QN, SERUM 266 mg/dL 90-386 [facility] ID Date Data Source [id number] 04/13/2021 08:06:00 AM EDT [facility] Name Value Range Interpretation Code Description Data Nahomi rce(s) Supporting Document(s) HEP A AB, IGM Negative Negative [facility] Performed at: RN - [facility] [place] [id number] Director: Cherry Pearson MD, Phone: [phone] ID Date Data Source [id number] 04/12/2021 09:26:00 AM EDT [facility] FAX [phone] Name Value Range Interpretation Code Description Data Nahomi rce(s) Supporting Document(s) PARTIAL THROMBOPLASTIN TIME 25.5 SECONDS 21.2-27.3 [facility] ID Date Data Source [id number] 04/12/2021 09:26:00 AM EDT [facility] l FAX [phone] Name Value Range Interpretation Code Description Data Nahomi rce(s) Supporting Document(s) PROTHROMBIN TIME (PATIENT) 11.4 SECONDS 9.1-11.6 [facility] INR 1.10 0.87-1.06 H [facility] ID Date Data Source [id number] 04/12/2021 09:00:00 AM EDT [facility] l FAX [phone] Name Value Range Interpretation Code Description Data Nahomi rce(s) Supporting Document(s) WHITE BLOOD COUNT 6.3 K/mm3 4.0-10.0 [facility] al RED BLOOD COUNT 3.89 M/mm3 4.50-6.00 L [facility] HEMOGLOBIN 10.5 gm/dL 14.0-18.0 L [facility] HEMATOCRIT 32.0 % 42.0-54.0 L [facility] MEAN CELL VOLUME 82.3 fl 80-96 [facility] MEAN CORPUSCULAR HEMOGLOBIN 27.0 pg 27.0-31.0 [facility] MEAN CORPUSCULAR HGB CONC 32.8 g/dl 32.0-36.0 [facility] RED CELL DISTRIBUTION WIDTH 15.0 % 10.0-14.5 H [facility] PLATELET COUNT 359 K/mm3 172-450 [facility] MEAN PLATELET VOLUME 10.2 fl 9.0-13.0 [facility] pital GRAN % 74.1 % 50-80.0 [facility] IG% 0.0 % 0.0-0.2 [facility] LYMPH % 17.6 % 25.0-50.0 L [facility] MONO % 6.7 % 2.0-10.0 [facility] EOS % 1.3 % 0-5.0 [facility] BASO % 0.3 % 0.0-2.0 [facility] GRAN # 4.6 K/mm3 2.0-8.00 [facility] IG# 0.0 K/mm3 0.0-0.2 [facility] LYMPH # 1.1 K/mm3 1.0-5.0 [facility] MONO # 0.4 K/mm3 0.10-1.20 [facility] EOS # 0.1 K/mm3 0.0-0.5 [facility] BASO # 0.0 K/mm3 0.0-0.2 [facility] ID Date Data Source [id number] 04/13/2021 12:05:00 PM EDT [facility] l Name Value Range Interpretation Code Description Data Nahomi rce(s) Supporting Document(s) T-TRANSGLUTAMINASE (TTG) IGA <2 U/mL 0-3 [facility] Negative 0 - 3 Weak Positive 4 - 10 Positive >10 Tissue Transglutaminase (tTG) has been identified as the endomysial antigen. Studies have demonstr- ated that endomysial IgA antibodies have over 99% specificity for gluten sensitive enteropathy.Performed at: RN - [facility] [address] [id number] Director: Cherry Pearson MD, Phone: [phone] ID Date Data Source [id number] 04/13/2021 08:06:00 AM EDT [facility] l Name Value Range Interpretation Code Description Data Nahomi rce(s) Supporting Document(s) HEP B SURFACE ANTIGEN SCREEN Negative Negative [facility] ID Date Data Source [id number] 04/13/2021 08:06:00 AM EDT [facility] l Name Value Range Interpretation Code Description Data Nahomi rce(s) Supporting Document(s) CERULOPLASMIN 25.6 mg/dL 16.0-31.0 [facility] ID Date Data Source [id number] 04/13/2021 08:06:00 AM EDT [facility] Name Value Range Interpretation Code Description Data Nahomi rce(s) Supporting Document(s) Hep B Surface Ab, Qual Non Reactive [facility] Non Reactiv e: Inconsistent with immunity, less than 10 mIU/mL Reactive: Consistent with immunity, greater than 9.9 mIU/mL ID Date Data Source [id number] 04/13/2021 12:05:00 PM EDT [facility] Name Value Range Interpretation Code Description Data Nahomi rce(s) Supporting Document(s) t-Transglutaminase (tTG) IgA 0-3 [facility] Negative 0 - 3 Weak Positive 4 - 10 Positive >10 Tissue Transglutaminase (tTG) has been identified as the endomysial antigen. Studies have demonstr- ated that endomysial IgA antibodies have over 99% specificity for gluten sensitive enteropathy. ID Date Data Source [id number] 04/13/2021 02:05:00 PM EDT [facility] Name Value Range Interpretation Code Description Data Nahomi rce(s) Supporting Document(s) RADHA Direct Positive Negative Abnormal (applies to non-numeric res ults) [facility] ID Date Data Source [id number] 04/13/2021 04:05:00 PM EDT [facility] Name Value Range Interpretation Code Description Data Nahomi rce(s) Supporting Document(s) Actin (Smooth Muscle) Antibody 5 Units 0-19 [facility] Negative 0 - 19 Weak positive 20 - 30 Moderate to strong positive >30 Actin Antibodies are found in 52-85% of patients with autoimmune hepatitis or chronic active hepatitis and in 22% of patients with primary biliary cirr hosis. ID Date Data Source [id number] 04/15/2021 06:05:00 AM EDT [facility] Name Value Range Interpretation Code Description Data Nahomi rce(s) Supporting Document(s) Fibrosis Score 0.08 0.00-0.21 [facility] Fibrosis Stage [facility] F0 - No fibrosis Steatosis Score 0.40 0.00-0.30 Above high normal [facility] Steatosis Grade S1 - Mild Steatosis [facility] MUÑIZ Score 0.50 0.25 Above high normal [facility] MUÑIZ Grade [facility] N1 - Borderline or probable MUÑIZ Height: 77 in [facility] Weight: 301 LBS [facility] Alpha 2-Macroglobulins, Qn 131 mg/dL 110-276 [facility] Haptoglobin 176 mg/dL 17-317 [facility] Apolipoprotein A-1 99 mg/dL 101-178 Below low normal [facility] Bilirubin, Total 0.5 mg/dL 0.0-1.2 [facility] GGT 12 IU/L 0-65 [facility] ALT (SGPT) P5P 14 IU/L 0-55 [facility] AST (SGOT) P5P 13 IU/L 0-40 [facility] Cholesterol, Total 133 mg/dL 100-199 [facility] Glucose, Serum 96 mg/dL 65-99 [facility] Triglycerides 101 mg/dL 0-149 [facility] Interpretations: [facility] Quantitative results of 10 biochemicals in combination withage, gender, height, and weight, are analyzed using acomputational algorithm to provide a quantitative surrogatemarker (0.0-1.0) of liver fibrosis (Metavir F0-F4), hepaticsteatosis (0.0-1.0, S0-S3), and Non-Alcoholic Steato-Hepatitis (MUÑIZ) (0.0-0.75, N0-N2). The absence of steatosis(S<0.38) precludes the diagnosis of MUÑIZ. Fibrosis marker: In a study of 171 Non-Alcoholic FattyLiver Disease (NAFLD) patients where 23% had significantNAFLD fibrosis (Metavir F2-F4) and 11% had cirrhosis byliver biopsy, a fibrosis result of >0.3 yielded asensitivity of 83% and a specificity of 78% for thedetection of significant fibrosis(1). Steatosis Marker: In a population of 744 patients (583 HCV,18 HBV, 69 NAFLD, and 74 alcoholic disease patients), where36% had significant steatosis (>5%) on a liver biopsy, asteatosis score >0.5 had a sensitivity of 71% and aspecificity of 72% for identification of significantsteatosis(2). MUÑIZ marker: In a population of 257 NAFLD patients, where62% had at least some MUÑIZ by liver biopsy, a prediction ofNASH had a sensitivity of 88% for identifying MUÑIZ and aspecificity of 50%(3). Fibrosis Scoring: [facility] <=0.21 = Stage F0 - No fibrosis0.21 - 0.27 = Stage F0 - F10.27 - 0.31 = Stage F1 - Portal fibrosis0.31 - 0.48 = Stage F1 - F20.48 - 0.58 = Stage F2 - Bridging fibrosis with few septa0.58 - 0.72 = Stage F3 - Bridging fibrosis with many septa0.72 - 0.74 = Stage F3 - F4 >0.74 = Stage F4 - Cirrhosis Steatosis Grading [facility] < 0.30 = S0 - No Steatosis0.30 to 0.38 = S0 - S10.38 to 0.48 = S1 - Minimal Steatosis0.48 to 0.57 = S1 - S20.57 to 0.67 = S2 - Moderate Steatosis0.67 to 0.69 = S2 - S3 > 0.69 = S3 - Marked or Severe Steatosis MUÑIZ Scoring [facility] 0.25 = N0 - Not NASH0.50 = N1 - Borderli ne or probable NASH0.75 = N2 - MUÑIZ Limitations: [facility] MUÑIZ FibroSure is recommended for patien ts with suspected non-alcoholic fatty liver disease. It is not recommended for patientswith other liver diseases. It is also not recommended in patientswith Gilbert Disease, acute hemolysis, acute viral hepatitis, druginduced hepatitis, genetic liver disease, autoimmune hepatitis and/orextra-hepatic cholestasis. Any of these clinical situations may leadto inaccurate quantitative predictions of fibrosis. Comment: [facility] This test was developed and its performa nce characteristics determinedby [facility]. It has not been cleared or approved by the Food and DrugAdministration. The FDA has determined that such clearance orapproval is not necessary. For questions regarding this report please contactcustomer service at . References: 1. Za Tovar al. Diagnostic Value of Biochemical Markers (FibroTest) for the prediction of Liver Fibrosis in patients with Non-Alcoholic Fatty Liver Disease. BMC Gastroenterology 2006; 6:6.2. Tameka Beal et al. The Diagnostic Value of Biomarkers (Steato Test) for the Prediction of Liver Steatosis. Comparative Hepatol. 2005; 4:10.3. Basim Beal, Mei Mendenhall, et al. Diagnostic value of biochemical markers (MUÑIZ TEST) for the prediction of non alcohol steato hepatitis in patients with non- alcoholic fatty liver disease. BMC Gastroenterology 2006; 6:34 doi:10.1186/7016-358G-2-34. ID Date Data Source [id number] 04/13/2021 08:06:00 AM EDT [facility] Name Value Range Interpretation Code Description Data Nahomi rce(s) Supporting Document(s) Hep C Virus Ab 0.0-0.9 [facility] Negative: < 0.8 Indeterminate: 0.8 - 0.9 Positive: > 0.9 The CDC recommends that a positive HCV antibody result be followed up with a HCV Nucleic Acid Amplification test (263699). ID Date Data Source [id number] 04/13/2021 02:05:00 PM EDT [facility] Name Value Range Interpretation Code Description Data Nahomi rce(s) Supporting Document(s) Anti-DNA (DS) Ab Qn 11 IU/mL 0-9 Above high normal [facility] Negative <5 Equivocal 5 - 9 Positive >9 [employer]M [employer]ESSING [employer] SUPERVISOR Antibodies 0.4 AI 0.0-0.9 [facility] Oconnor Antibodies 0.0-0.9 [facility] Antiscleroderma-70 Antibodies 0.0-0.9 [facility] Sjogren's Anti-SS-A 0.0-0.9 [facility] Sjogren's Anti-SS-B 0.0-0.9 [facility] Antichromatin Antibodies 0.0-0.9 [facility] Anti-Mariia-1 0.0-0.9 [facility] Anti-Centromere B Antibodies 0.0-0.9 [facility] See below: [facility] Autoantibody Disea se Association Condition Frequency ---- ---------Antinuclear Antibody, SLE, mixed connectiveDirect (RADHA-D) tissue diseases ---------dsDNA SLE 40 - 60% ---------Chromatin Drug induced SLE 90% SLE 48 - 97% ---------SSA (Ro) SLE 25 - 35% Sjogren's Syndrome 40 - 70% Lupus 100% ---------SSB (La) SLE 10% Sjogren's Syndrome 30% ---------Sm (anti-Oconnor) SLE 15 - 30% ---------FILM PROCESSING SHIFT SUPERVISOR Mixed Connective Tissue Disease 95%(U1 nRNP, SLE 30 - 50%anti-ribonucleoprotein) P olymyositis and/or Dermatomyositis 20% ---------Scl-70 (antiDNA Scleroderma (diffuse) 20 - 35%topoisomerase) Crest 13% ---------Mariia-1 Polymyositis and/or Dermatomyositis 20 - 40% ---------Centromere B Scleroderma - Crest variant 80% ID Date Data Source [id number] 04/13/2021 04:05:00 PM EDT [facility] Name Value Range Interpretation Code Description Data Nahomi rce(s) Supporting Document(s) Mitochondrial (M2) Antibody 0.0-20.0 [facility] Negative 0.0 - 20.0 Equivocal 20.1 - 24.9 Positive >24.9 Mitochondrial (M2) Antibodies are found in 90-96% of patients with primary biliary cirrhosis. ID Date Data Source [id number] 04/13/2021 08:06:00 AM EDT [facility] Name Value Range Interpretation Code Description Data Nahomi rce(s) Supporting Document(s) Ceruloplasmin 25.6 mg/dL 16.0-31.0 [facility] ID Date Data Source [id number] 04/13/2021 08:06:00 AM EDT [facility] Name Value Range Interpretation Code Description Data Nahomi rce(s) Supporting Document(s) Immunoglobulin A, Qn, Serum 266 mg/dL 90-386 [facility] ID Date Data Source [id number] 04/13/2021 08:06:00 AM EDT [facility] Name Value Range Interpretation Code Description Data Nahomi rce(s) Supporting Document(s) HBsAg Screen Negative Negative [facility] ID Date Data Source [id number] 04/13/2021 08:06:00 AM EDT [facility] Name Value Range Interpretation Code Description Data Nahomi rce(s) Supporting Document(s) Hep A Ab, IgM Negative Negative [facility] ID Date Data Source [id number] 03/29/2021 08:39:00 AM EDT [facility] ([facility]) Name Value Range Interpretation Code Description Data Nahomi rce(s) Supporting Document(s) sars-cov-2 positive negative Abnormal (applies to non-num delma results) Sars-cov-2 [facility] ([facility]) ID Date Data Source [id number] 03/29/2021 08:23:00 AM EDT [facility] Name Value Range Interpretation Code Description Data Nahomi rce(s) Supporting Document(s) SARS coronavirus 2 RdRp gene [Presence] in Respiratory specimen by GENI with probe detection Detected [facility] This lab was ordered by [facility] and reported by [facility]. ID Date Data Source [id number] 02/07/2021 09:47:42 AM EDT [facility] INFORMATIONPatient MRN Name Date of Age Gend*PT [id number] Regla Mcfarland 1985 35 years M IPPT Location Admission Date/Time Visit ID Attending [id number] 12/02/200 --- --- EPI ID CSN Admitting Provider [id number] Eamon Shelby MD([id number]) Attestation signed by Izaiah Estrada MD at 02/07/2021 9:47 AMI saw and evaluated the patient and reviewed QUIQUE Woodward's note. I agreewith the history, physical and medical decision makingSignature: Izaiah Estrada MDDate: February 07, 2021Time: 9:47 AM --Surgical Services Discharge Virgil Mcfarland date: 12/02/2020ttending Physician: Ish Daniel Procedures: * Surgery not found *Indication for Admission: GI bleed, See full H&P.Hospital Course & Complications: This is a 35yo male s/p gertrudis en y gastricbypass on November 19 of this [address] Dr. Estrada. He presented to the ED with CCof blood in the stool. Prior to coming to [facility] he went to [facility] where he had a normal CT scan. Patient's labs in the ED werestable. He was admitted, made NPO, started IVFs, FFP, PPI, humalog ss, andcontinued home HTN medication. Patient's diet was advanced. He was clinicallyand hemodynamically stable but continued to have melena. A tagged RBC scan wasordered and revealed no active bleeding. H/H improved, no indication forsurgery. On 12/07/20 the patient was tolerating a diet, pain controlled, VSstable, and activity level is at baseline. The patient was deemed appropriatefor discharge.Medications:Your medication listCHANGE how you take these medications Instructions Last Dose Given Morning Afternoon Evening Bedtime As Neededdoxazosin 2 MG tabletCommonly known as: CARDURAWhat changed: See the new instructions. TAKE 1 TABLET NIGHTLY Next dose due 12/07/2020 at bedtimeCONTINUE taking these medications Instructions Last Dose Given Morning Afternoon Evening Bedtime As Neededacetaminophen 325 MG tabletCommonly known as: TYLENOL Take 650 mg by mouth daily as needed for painallopurinol 300 MG tabletCommonly known as: ZYLOPRIM Take 300 mg by mouth dailycarvedilol 25 MG tabletCommonly known as: COREG Take 25 mg by mouth 2 (two) times a dayescitalopram 10 MG tabletCommonly known as: LEXAPRO Take 10 mg by mouth dailyNext dose due 12/08/2020 at 9AMmultivitamin with iron Tabs Take 2 tablets by mouth dailyomeprazole 20 MG capsuleCommonly known as: PriLOSEC Take 40 mg by mouth dailyondansetron 4 MG tabletCommonly known as: ZOFRAN Take 1 tablet (4 mg total) by mouth every 8 (eight) hours as needed for nauseasimethicone 80 MG chewable tabletCommonly known as: MYLICON Chew 1 tablet (80 mg total) every 6 (six) hours as needed for flatulencevitamin B-12 1000 MCG tabletCommonly known as: CYANOCOBALAMIN Take 1,000 mcg by mouth dailyDischarge Exam: from Dr. Estrada 12/07/20 noteTemp: [97.5 F-98.1 F] 97.8 FHeart Rate: [62-91] 69Resp: [16-18] 16BP: (125-151)/(71-102) 125/80 Intake/Output Summary (Last 24 hours) at 12/07/2020 1511Last data filed at 12/07/2020 1400Gross per 24 hourIntake 960 mlOutput 300 mlNet 660 ml I/O last 3 completed shifts:In: 960 [P.O.:960]Out: 300 [Urine:300] General: NAD, comfortable, affect greatHeart:: RRRLungs: no labored breathingAbd: Soft, non-tender, old surgical sites healing wellExt:No calf tenderness, no edema present in bilateral lower extremitiesDischarged Condition:stableCode status: Full CodeDisposition: Home or Self CareFollow Up: Discharge instructions were reviewed with patient. Follow up in theoffice as scheduled. He understands to call the office with any questions orconcerns. Discussed above discharge plan with attending, No att. providersfoundSignature: Bear Woodward: January 11, 2021Time: 2:50 PM Name Value Range Interpretation Code Description Data [facility](s) Supporting Document(s) ID Date Data Source [id number] 01/29/2021 04:03:00 PM EDT [facility] Name Value Range Interpretation Code Description Data [facility](s) Supporting Document(s) WHITE BLOOD COUNT 8.0 K/mm3 4.0-10.0 [facility] RED BLOOD COUNT 4.37 M/mm3 4.50-6.00 L [facility] HEMOGLOBIN 12.3 gm/dL 14.0-18.0 L [facility] HEMATOCRIT 36.8 % 42.0-54.0 L [facility] MEAN CELL VOLUME 84.2 fl 80-96 [facility] l MEAN CORPUSCULAR HEMOGLOBIN 28.1 pg 27.0-31.0 [facility] MEAN CORPUSCULAR HGB CONC 33.4 g/dl 32.0-36.0 [facility] RED CELL DISTRIBUTION WIDTH 13.7 % 10.0-14.5 [facility] PLATELET COUNT 302 K/mm3 172-450 [facility] MEAN PLATELET VOLUME 10.5 fl 9.0-13.0 [facility] pital GRAN % 70.5 % 50-80.0 [facility] IG% 0.1 % 0.0-0.2 [facility] LYMPH % 20.7 % 25.0-50.0 L [facility] MONO % 7.0 % 2.0-10.0 [facility] EOS % 1.6 % 0-5.0 [facility] BASO % 0.1 % 0.0-2.0 [facility] GRAN # 5.7 K/mm3 2.0-8.00 [facility] IG# 0.0 K/mm3 0.0-0.2 [facility] LYMPH # 1.7 K/mm3 1.0-5.0 [facility] MONO # 0.6 K/mm3 0.10-1.20 [facility] EOS # 0.1 K/mm3 0.0-0.5 [facility] BASO # 0.0 K/mm3 0.0-0.2 [facility] ID Date Data Source [id number] 12/18/2020 06:10:00 PM EDT [facility] Test(s) 872031-Yfc. B1, Whole Bloodwas elian falloped and its performance characteristicsdetermined by [facility]. It has not been cleared or approvedby the Food and Drug Administration. Name Value Range Interpretation Code Description Data Nahomi rce(s) Supporting Document(s) VIT. B1, WHOLE BLOOD 128.5 nmol/L 66.5-200.0 [facility] Performed at: [address] [id number] Director: Nic Velázquez MD, Phone: [phone] ID Date Data Source [id number] 12/15/2020 08:10:00 AM [facility] l Test(s) [id number]-Dyu. B1, Whole Bloodwas d eveloped and its performance characteristicsdetermined by [facility]. It has not been cleared or approvedby the Food and Drug Administration. Name Value Range Interpretation Code Description Data [facility] Supporting Document(s) VITAMIN D, 25-HYDROXY 16.8 ng/mL 30.0-100.0 [facility] Vitamin D deficiency has been defined by the [place] of[place]icine and an Endocrine Society practice guideline as alevel of serum 25-OH vitamin D less than 20 ng/mL (1,2).The Endocrine Society went on to further define vitamin Dinsufficiency as a level between 21 and 29 ng/mL (2).1. IOM ([place] of Medicine). 2010. Dietary reference intakes for calcium and D. [place]: The National Academies Press.2. Barb MF, Amy CEJA, Kin GREWAL, et al. Evaluation, treatment, and prevention of vitamin D deficiency: an Endocrine Society clinical practice guideline. JCEM. 2010; 96(7):1911-30. ID Date Data Source [id number] 12/15/2020 08:10:00 AM [facility] Test(s) 477151-Bbm. B1, Whole Bloodwas d eveloped and its performance characteristicsdetermined by [facility]. It has not been cleared or approvedby the Food and Drug Administration. Name Value Range Interpretation Code Description Data [facility](s) Supporting Document(s) VITAMIN B12 571 pg/mL [facility]-1245 [facility] Performed at: RN - [facility] [address] [id number] Director: Cherry Pearson MD, Phone: [phone] ID Date Data Source [id number] 12/15/2020 02:06:00 PM [facility] Test(s) 711345-Yja. B1, Whole Bloodwas d eveloped and its performance characteristicsdetermined by [facility]. It has not been cleared or approvedby the Food and Drug Administration. Name Value Range Interpretation Code Description Data [facility](s) Supporting Document(s) FOLATE, HEMOLYSATE 511.0 ng/mL Not Estab. [facility] 36.8 % 37.5-51.0 [facility] FOLATE, RBC 1389 ng/mL >498 [facility] Performed at: RN - [facility] [address] [id number] Director: Cherry Pearson MD, Phone: [phone] ID Date Data Source [id number] 12/15/2020 08:06:00 AM EDT [facility] Name Value Range Interpretation Code Description Data Nahomi rce(s) Supporting Document(s) Vitamin D, 25-Hydroxy 16.8 ng/mL 30.0-100.0 Below low normal [facility] Vitamin D deficiency has been defined by the [place] of[place]icine and an Endocrine Society practice guideline as alevel of serum 25-OH vitamin D less than 20 ng/mL (1,2).The Endocrine Society went on to further define vitamin Dinsufficiency as a level between 21 and 29 ng/mL (2).1. IOM ([place]). 2010. Dietary reference intakes for calcium and D. [place]: The National Academies Press.2. Barb MF, Amy NC, Kin GREWAL, et al. Evaluation, treatment, and prevention of vitamin D deficiency: an Endocrine Society clinical practice guideline. JCEM. 2010; 96(7):1911-30. ID Date Data Source [id number] 12/15/2020 02:05:00 PM EDT [facility] Name Value Range Interpretation Code Description Data Nahomi rce(s) Supporting Document(s) Folate, Hemolysate 511.0 ng/mL Not Estab. [facility] Hematocrit 36.8 % 37.5-51.0 Below low normal [facility] Folate, RBC 1389 ng/mL >498 [facility] ID Date Data Source [id number] 12/18/2020 06:05:00 PM EDT [facility] Name Value Range Interpretation Code Description Data Nahomi rce(s) Supporting Document(s) Vit. B1, Whole Blood 128.5 nmol/L 66.5-200.0 [facility] ID Date Data Source [id number] 12/15/2020 08:06:00 AM EDT [facility] Name Value Range Interpretation Code Description Data [facility] rce(s) Supporting Document(s) Vitamin B12 571 pg/mL [id number] [facility] ID Date Data Source [id number] 12/14/2020 01:17:00 PM EDT [facility] FAX [phone] Name Value Range Interpretation Code Description Data N[facility] rce(s) Supporting Document(s) HGBA1C 5.9 % 3.8-5.6 H [facility] Diabetic > or = to 6.5%Prediabetes 5.7-6 .4%Normal <5.7 ESTIMATED AVERAGE GLUCOSE 122.6 mg/dL [facility] ID Date Data Source [id number] 12/14/2020 12:20:00 PM EDT [facility] FAX [phone] Name Value Range Interpretation Code Description Data Nahomi rce(s) Supporting Document(s) FERRITIN 217 ng/mL 26-388 [facility] ID Date Data Source [id number] 12/14/2020 12:20:00 PM EDT [facility] [phone] Name Value Range Interpretation Code Description Data Nahomi rce(s) Supporting Document(s) PHOSPHOROUS 3.8 mg/dL 2.5-4.9 [facility] ID Date Data Source [id number] 12/14/2020 12:20:00 PM EDT [facility] l FAX [phone] Name Value Range Interpretation Code Description Data [facility] rce(s) Supporting Document(s) MAGNESIUM 1.7 mg/dL 1.8-2.4 [facility] ID Date Data Source [id number] 12/14/2020 12:20:00 PM EDT [facility] [facility] FAX [phone] Name Value Range Interpretation Code Description Data Nahomi rce(s) Supporting Document(s) IRON 47 ug/dL 65-175 L [facility] TIBC 298 ug/dL 250-450 [facility] % SATURATION 16 % 20-50 L [facility] ID Date Data Source [id number] 12/14/2020 12:20:00 PM EDT [facility] l FAX [phone] Name Value Range Interpretation Code Description Data Nahomi rce(s) Supporting Document(s) GLUCOSE 150 mg/dL 74-106 H [facility] BLOOD UREA NITROGEN 7 mg/dL 7-18 [facility] CREATININE 0.78 mg/dL 0.7-1.3 [facility] SODIUM 141 mmol/L 136-145 [facility] POTASSIUM 4.4 mmol/L 3.5-5.1 [facility] CHLORIDE 105 mmol/L 98-107 [facility] CO2 26 mmol/L 21-32 [facility] CALCIUM 9.0 mg/dL 8.5-10.1 [facility] ANION GAP 10.0 mmol/L 5-12 [facility] GLOMERULAR FILTRATION RATE >90 mL/min [facility] GFR IS CALCULATED IN mL/min/1.73m2 JOVANY L FUNCTION: >90MILDLY DECREASED: 60-89MILDY TO MODERATELY DECREASED: 45-59 MODERATELY TO SEVERELY DECREASED: 30-44SEVERELY DECREASED: 15-29RENAL FAILURE: <15 AST 22 U/L 15-37 [facility] ALT 55 U/L 12-78 [facility] ALKALINE PHOSPHATASE 71 U/L 46-116 [facility] TOTAL BILIRUBIN 0.7 mg/dL 0.2-1.0 [facility] TOTAL PROTEIN 7.4 g/dl 6.4-8.2 [facility] ALBUMIN 3.8 gm/dL 3.4-5.0 [facility] ID Date Data Source [id number] 12/14/2020 11:52:00 AM EDT [facility] FAX [phone] Name Value Range Interpretation Code Description Data Nahomi rce(s) Supporting Document(s) WHITE BLOOD COUNT 6.0 K/mm3 4.0-10.0 [facility] al RED BLOOD COUNT 4.03 M/mm3 4.50-6.00 L [facility] HEMOGLOBIN 11.9 gm/dL 14.0-18.0 L [facility] HEMATOCRIT 36.1 % 42.0-54.0 L [facility] MEAN CELL VOLUME 89.6 fl 80-96 [facility] MEAN CORPUSCULAR HEMOGLOBIN 29.5 pg 27.0-31.0 [facility] MEAN CORPUSCULAR HGB CONC 33.0 g/dl 32.0-36.0 [facility] RED CELL DISTRIBUTION WIDTH 15.3 % 10.0-14.5 H [facility] PLATELET COUNT 391 K/mm3 172-450 [facility] MEAN PLATELET VOLUME 10.2 fl 9.0-13.0 [facility] pital GRAN % 69.3 % 50-80.0 [facility] IG% 0.2 % 0.0-0.2 [facility] LYMPH % 22.2 % 25.0-50.0 L [facility] MONO % 6.3 % 2.0-10.0 [facility] EOS % 1.8 % 0-5.0 [facility] BASO % 0.2 % 0.0-2.0 [facility] GRAN # 4.2 K/mm3 2.0-8.00 [facility] IG# 0.0 K/mm3 0.0-0.2 [facility] LYMPH # 1.3 K/mm3 1.0-5.0 [facility] MONO # 0.4 K/mm3 0.10-1.20 [facility] EOS # 0.1 K/mm3 0.0-0.5 [facility] BASO # 0.0 K/mm3 0.0-0.2 [facility] ID Date Data Source [id number] 12/07/2020 06:37:23 PM EDT [facility] Name Value Range Interpretation Code Description Data Nahomi rce(s) Supporting Document(s) WBC 7.5 10*3/uL (4.1-11.0) [facility] [place] RBC 3.47 10*6/uL (4.60-6.10) L [facility] HGB 10.7 g/dL (13.5-18.0) L [facility] HCT 30.6 % (41.0-53.0) L [facility] MCV 88.2 fL (80.0-95.0) [facility] MCH 30.8 pg (27.0-32.0) [facility] MCHC 34.9 g/dL (32.0-36.0) [facility] RDW 14.3 % (10.5-14.5) [facility] PLT 400 10*3/uL (150-450) [facility] MPV 8.0 fL (7.1-10.7) [facility] ID Date Data Source [id number] 12/07/2020 12:05:40 PM EDT [facility] Name Value Range Interpretation Code Description Data Nahomi rce(s) Supporting Document(s) POC NOVA GLU 110 mg/dL (70-99) H [facility] [place] [facility] ID Date Data Source [id number] 12/07/2020 10:47:31 AM EDT [address] [id number] Name: REGLA MCFARLANDDOB: 1985Sex: MOrdering Provider: DANIELLA PAGANONAuthorizing Prov: DANIELLA PAGANONReferring Provider: Procedure Performed: NM GI BLOOD LOSSExam Date: 12/07/2020 10:28MRN: [id number] Number: [id number] Class: InpatientAccount #: [id number] for Exam: Melena, s/p rux en y. H/H has been unstabble.Technique: 20 mCi TECHNETIUM 99M labeled RBCs. Imaging obtained at one hour.Comparison: NoneFindings: There is a physiologic distribution of radiotracer. No abnormal accumulations of tracer to suggest a bleeding site.IMPRESSION: Negative study.Report electronically signed by: CHERYLE RIVERA On 12/07/2020 10:47 AMWorkstation ID: [id number] Name Value Range Interpretation Code Description Data Nahomi rce(s) Supporting Document(s) ID Date Data Source [id number] 12/07/2020 09:12:22 AM EDT [facility] Name Value Range Interpretation Code Description Data Nahomi rce(s) Supporting Document(s) WBC 6.4 10*3/uL (4.1-11.0) [facility] [place] RBC 3.32 10*6/uL (4.60-6.10) L [facility] HGB 10.1 g/dL (13.5-18.0) L [facility] HCT 29.5 % (41.0-53.0) L [facility] MCV 89.0 fL (80.0-95.0) [facility] MCH 30.5 pg (27.0-32.0) [facility] MCHC 34.3 g/dL (32.0-36.0) [facility] RDW 14.3 % (10.5-14.5) [facility] PLT 356 10*3/uL (150-450) [facility] MPV 8.1 fL (7.1-10.7) [facility] ID Date Data Source [id number] 12/06/2020 04:35:46 PM EDT [facility] Name Value Range Interpretation Code Description Data Nahomi rce(s) Supporting Document(s) POC NOVA GLU 115 mg/dL (70-99) H [facility] [place] [facility] ID Date Data Source [id number] 12/06/2020 02:31:15 PM EDT [facility] Name Value Range Interpretation Code Description Data Nahomi rce(s) Supporting Document(s) POC NOVA GLU 102 mg/dL (70-99) H [facility] [place] [facility] ID Date Data Source [id number] 12/06/2020 10:09:13 AM EDT [facility] Name Value Range Interpretation Code Description Data Nahomi rce(s) Supporting Document(s) POC NOVA GLU 125 mg/dL (70-99) H [facility] [place] [facility] ID Date Data Source [id number] 12/06/2020 09:31:38 AM EDT [facility] Name Value Range Interpretation Code Description Data Nahomi rce(s) Supporting Document(s) WBC 6.0 10*3/uL (4.1-11.0) [facility] [place] RBC 3.14 10*6/uL (4.60-6.10) L [facility] HGB 9.7 g/dL (13.5-18.0) L [facility] HCT 27.7 % (41.0-53.0) L [facility] MCV 88.2 fL (80.0-95.0) [facility] MCH 31.0 pg (27.0-32.0) [facility] MCHC 35.1 g/dL (32.0-36.0) [facility] RDW 14.0 % (10.5-14.5) [facility] PLT 322 10*3/uL (150-450) [facility] MPV 7.8 fL (7.1-10.7) [facility] ID Date Data Source [id number] 12/05/2020 02:41:41 PM EDT [facility] Name Value Range Interpretation Code Description Data Nahomi rce(s) Supporting Document(s) POC NOVA GLU 112 mg/dL (70-99) H [facility] [place] [facility] ID Date Data Source [id number] 12/05/2020 02:07:01 PM EDT [facility] NT INFORMATIONPatient MRN Name Date of Age Gend*PT [id number] Tate Mcfarlandgianfranco Bocanegra 1985 35 years M IPPT Location Admission Date/Time Visit ID Attending [id number] 12/02/202219 --- Eamon Shelby MD([id number]) EPI ID CSN Admitting Provider [id number] Eamon Shelby MD([id number]) Attestation signed by Eamon Shelby MD at 12/05/2020 2:06 PMI have reviewed the above and agree.Advance to week 3 bariatric soft dietNo further bleedingHome this PM if diet tolerated and no bleedingSignature: JUANJO Danielate: December 05, 2020Time: 2:06 PM Surgical Services History&PhysicalDeanajanice Mcfarland 1985 35 years12/02/2020 PCP: Ginna Bernardo MDInformant: Regla Mcfarland, Reliable Yes; [facility] "I saw blood in my stool"HPI: Regla Mcfarland is a 35 years old White or male [facility] with c/o bright red blood per rectum since Monday. Patient iss/p gertrudis en y gastric bypass on November 19 of [address] Estrada. Patientstates that on Monday he started to feel faint and nauseated when he had a bowelmovement that had blood with clots in the stool. He called Dr. Mcintyre office atthat point who recommended he be evaluated at the closest hospital which [facility] in [place]. Patient had a CT scan and labs which were allnormal. Patient had felt better yesterday but started to have another bloodybowel movement today so patient called the [facility]. Patient denies anylightheadedness, shortness of breath, chest pain, or abdominal pain. He deniesany rectal pain with his bowel movements. He also denies any nausea or vomiting.PMH:Past Medical History:Diagnosis Date Abnormal EKG Dr. Murphy Advanced Airway Equipment Used Anxiety Depression GERD (gastroesophageal reflux disease) Hard to intubate Hypertension Morbid obesity Nephrolithiasis Renal stone Type 2 diabetes mellitusPSH:Past Surgical History:Procedure Laterality Date GASTRIC BYPASS N/A 11/19/2020 Procedure: CREATION, GASTRIC BYPASS, GERTRUDIS-EN-Y, LAPAROSCOPIC, WITH LIVERBIOPSY; Surgeon: Izaiah Estrada MD; Laterality: N/A; PANENDOSCOPY N/A 08/10/2020 Procedure: ENDOSCOPY, UPPER GASTROINTESTINAL (GI) TRACT W BIOPSY ; Surgeon:Akbar Correa MD; Laterality: N/A;MEDICATIONS: Medication reconciliation will be completed separately. (Not in ahospital admission)ALLERGY:AllergiesAllergen Reactions Augmentin [Amoxicillin-Pot Clavulanate] DiarrheaFH:Family HistoryProblem Relation Age of Onset Hypertension Mother Healthy, No Significant History FatherSH:Social HistoryTobacco Use Smoking status: Former Smoker Types: Cigarettes Quit date: 11/2019 Years since quittin.0 Smokeless tobacco: Former User Tobacco comment: former occ/social cig smokerSubstance Use Topics Alcohol use: Yes Comment: 3 drinks a week Drug use: NeverROS:Constitutional: Denies fever, chills, general malaise or recent weight change.HEENT: Denies recent visual or hearing changes.Respiratory: Denies cough, shortness of breath, wheezing, or hemoptysis.Cardiovascular: Denies chest pain or pressure, or palpitations.Gastrointestinal: denies abdominal pain, nausea, vomiting, admits to bloodydiarrhea denies constipationGenitourinary: Denies dysuria, hematuria or difficulty urinating.Extremities/Musculoskeletal: Denies current joint pain or muscle weakness.Neurological: Denies dizziness, seizures, speech difficulty, or headaches.Psychiatric: Denies anxiety or depression.Endocrine: Denies night sweats or temperature intolerance.Hematological: Denies unusual bruising or bleeding disorder.Integumentary: Denies current rashes or lesions.Allergic/Immunology: Denies current hives/itching.Physical Exam:BP 124/87 | Pulse 98 | Temp 98.8 F (Oral) | Resp 20 | Ht 1.778 m (5' 10")| Wt (!) 136.1 kg (300 lb) | SpO2 97% | BMI 43.05 kg/m General: Alert, conversing appropriately, and cooperative.Skin: Warm and dry. No rashes/lesions.Head: Atraumatic, normocephalic.Eyes: PERRL. Sclerae anicteric, conjunctivae clear bilaterally.Ears: Hearing grossly intact, external ears normal.Nose: Symmetric.Mouth: Dentition is fair, oropharynx without exudates or lesions.Neck: Supple, no lymphadenopathy.Heart: S1S2 regular rate and rhythm.Lungs: CTA bilaterally. Respiratory effort non-labored.Abdomen: soft non-distended, non-tender, +bowel soundsBack: No CVA tenderness.: Normal appearing external male genitalia.Musculoskeletal: No muscle atrophy or weakness appreciated.Vascular/Ext: No calf tenderness or LE edema. Distal pulses intact.Neurologic: Cranial nerves grossly intact. No focal deficits appreciated.Rectal/breast exam: Deferred to PCP.Labs, Imaging and other Diagnostics:BMP:Lab ResultsComponent Value Date NA 136 12/02/2020 K 4.2 12/02/2020 CL 103 12/02/2020 CO2 25 12/02/2020 ANIONGAP 8 12/02/2020 CALCIUM 9.1 12/02/2020 GLU 140 (H) 12/02/2020 BUN 14 12/02/2020 CREATININE 0.73 (L) 12/02/2020 GFRAA >60 12/02/2020 GFRNONAA >60 12/02/2020BC with Diff:Lab ResultsComponent Value Date WBC 10.3 12/02/2020 RBC 3.83 (L) 12/02/2020 HGB 11.8 (L) 12/02/2020 HCT 33.2 (L) 12/02/2020 MCV 86.7 12/02/2020 MCH 30.8 12/02/2020 MCHC 35.5 12/02/2020 RDW 13.5 12/02/2020 PLT 383 12/02/2020 MPV 7.6 12/02/2020 LYMPHOPCT 18.0 12/02/2020 MONOPCT 6.3 12/02/2020 EOSPCT 0.9 12/02/2020 BASOPCT 0.6 12/02/2020 NEUTROABS 7.6 12/02/2020 MONOABS 0.6 12/02/2020 BASOSABS 0.1 12/02/2020abs from today and Imaging from outside hospitalNo orders to displayAssessment and Plan:Principal Problem: GI bleed- Plan: Patient s/p gertrudis en y gastric bypass November 22 now with blood bowelmovements. H/H stable at will repeat labs in the morning. Per Dr. Farrell give vitamin K and FPP to help with bleeding. Continue PPI. Will keep NPOwith sips and IV fluids for hydration.Active Problems: Hypertension, essential- Plan: Continue coreg and cardura with hold parameters Type 2 diabetes mellitus- Plan: Place on sliding scale insulin while admitted Anxiety Depression- Plan: Continue lexaproThe patient has been encouraged to contact appropriate medical staff with anyquestions or concerns he may have in the interim. I have discussed this patientwith attending, Eamon Shelby MD. Further plan per the attending physician.DVT mechanical and pharmacological prophylaxisADOD: unknownCode status: Full CodeSignature: Richard Barnes 111:22 PM Name Value Range Interpretation Code Description Data Nahomi rce(s) Supporting Document(s) ID Date Data Source [id number] 12/05/2020 12:08:40 PM EDT [facility] Name Value Range Interpretation Code Description Data Nahomi rce(s) Supporting Document(s) POC NOVA GLU 134 mg/dL (70-99) H [facility] [place] [facility] ID Date Data Source [id number] 12/05/2020 08:42:36 AM EDT [facility] Name Value Range Interpretation Code Description Data Nahomi rce(s) Supporting Document(s) POC NOVA GLU 128 mg/dL (70-99) H [facility] [place] [facility] ID Date Data Source [id number] 12/05/2020 08:13:26 AM EDT [facility] Name Value Range Interpretation Code Description Data Nahomi rce(s) Supporting Document(s) WBC 6.5 10*3/uL (4.1-11.0) [facility] [place] RBC 2.96 10*6/uL (4.60-6.10) L [facility] HGB 9.3 g/dL (13.5-18.0) L [facility] HCT 26.0 % (41.0-53.0) L [facility] MCV 87.9 fL (80.0-95.0) [facility] MCH 31.4 pg (27.0-32.0) [facility] MCHC 35.8 g/dL (32.0-36.0) [facility] RDW 13.7 % (10.5-14.5) [facility] PLT 313 10*3/uL (150-450) [facility] MPV 7.8 fL (7.1-10.7) [facility] ID Date Data Source [id number] 12/04/2020 04:58:54 PM EDT [facility] Name Value Range Interpretation Code Description Data Nahomi rce(s) Supporting Document(s) POC NOVA GLU 119 mg/dL (70-99) H [facility] [place] [facility] ID Date Data Source [id number] 12/04/2020 04:23:18 PM EDT [facility] Name Value Range Interpretation Code Description Data Nahomi rce(s) Supporting Document(s) WBC 7.0 10*3/uL (4.1-11.0) [facility] [place] RBC 3.30 10*6/uL (4.60-6.10) L [facility] HGB 10.2 g/dL (13.5-18.0) L [facility] HCT 28.9 % (41.0-53.0) L [facility] MCV 87.5 fL (80.0-95.0) [facility] MCH 30.7 pg (27.0-32.0) [facility] MCHC 35.1 g/dL (32.0-36.0) [facility] RDW 13.8 % (10.5-14.5) [facility] PLT 342 10*3/uL (150-450) [facility] MPV 8.1 fL (7.1-10.7) [facility] ID Date Data Source [id number] 12/04/2020 04:58:54 PM EDT [facility] Name Value Range Interpretation Code Description Data Nahomi rce(s) Supporting Document(s) POC NOVA GLU 126 mg/dL (70-99) H [facility] [place] [facility] ID Date Data Source [id number] 12/04/2020 04:58:44 PM EDT [facility] Name Value Range Interpretation Code Description Data Nahomi rce(s) Supporting Document(s) POC NOVA GLU 137 mg/dL (70-99) H [facility] [place] [facility] ID Date Data Source [id number] 12/04/2020 11:16:30 AM EDT [facility] Name Value Range Interpretation Code Description Data Nahomi rce(s) Supporting Document(s) WBC 6.2 10*3/uL (4.1-11.0) [facility] [place] RBC 3.06 10*6/uL (4.60-6.10) L [facility] HGB 9.4 g/dL (13.5-18.0) L [facility] HCT 26.7 % (41.0-53.0) L [facility] MCV 87.4 fL (80.0-95.0) [facility] MCH 30.6 pg (27.0-32.0) [facility] MCHC 35.1 g/dL (32.0-36.0) [facility] RDW 13.5 % (10.5-14.5) [facility] PLT 302 10*3/uL (150-450) [facility] MPV 8.1 fL (7.1-10.7) [facility] ID Date Data Source [id number] 12/03/2020 11:43:19 PM EDT [facility] Name Value Range Interpretation Code Description Data Nahomi rce(s) Supporting Document(s) POC NOVA GLU 140 mg/dL (70-99) H [facility] [place] [facility] ID Date Data Source [id number] 12/04/2020 02:33:57 AM EDT [facility] UNIT NUMBER [id number] LOOD COMPONENT TYPE RT24 PLAS 2ND CONTUNIT DIVISION 00STATUS OF UNIT TRANSFUSEDTRANSFUSION STATUS OK TO TRANSFUSEUNIT NUMBER [id number] COMPONENT TYPE THAWED PLASMA <24UNIT DIVISION 00STATUS OF UNIT TRANSFUSEDTRANSFUSION STATUS OK TO TRANSFUSE Name Value Range Interpretation Code Description Data Nahomi rce(s) Supporting Document(s) TRANSFUSE PLASMA [facility] ID Date Data Source [id number] 12/03/2020 08:16:36 AM EDT [facility] Name Value Range Interpretation Code Description Data Nahomi rce(s) Supporting Document(s) SODIUM 140 mmol/L (136-145) [facility] POTASSIUM 4.6 mmol/L (3.6-5.2) [facility] CHLORIDE 105 mmol/L (100-108) [facility] CO2 28 mmol/L (22-31) [facility] ANION GAP 7 mmol/L (7-16) [facility] UREA NITROGEN 15 mg/dL (7-24) [facility] CREATININE 0.66 mg/dL (0.80-1.30) L [facility] BUN/CREAT RATIO 22.7 RATIO (10.0-20.0) H [facility] GLUCOSE 136 mg/dL (70-99) H [facility] CALCIUM 8.7 mg/dL (8.4-10.2) [facility] GFR >60 ml/min/1.73m2 (>59) [facility] GFR ( AMER) >60 ml/min/1.73m2 (>59) [facility] GFR INTERPRETATION [facility] [place] --NORMAL KIDNEY FUNCTION OR MILD DISEASE - GFR >OR= 60CHRONIC KIDNEY DISEASE - GFR 15 - 59RENAL FAILURE - GFR <15 Est. GFR calculation based on the MDRDstudy equation, which assumes a steadystate for creatinine. Est. GFR should notbe used for medication dosing. ID Date Data Source [id number] 12/03/2020 07:35:44 AM EDT [facility] Name Value Range Interpretation Code Description Data Nahomi rce(s) Supporting Document(s) WBC 7.2 10*3/uL (4.1-11.0) [facility] [place] RBC 3.34 10*6/uL (4.60-6.10) L [facility] HGB 10.3 g/dL (13.5-18.0) L [facility] HCT 28.9 % (41.0-53.0) L [facility] PERFORMED AT [address] [place] [address] N [place] [address] MCV 86.7 fL (80.0-95.0) [facility] MCH 30.7 pg (27.0-32.0) [facility] MCHC 35.4 g/dL (32.0-36.0) [facility] RDW 13.8 % (10.5-14.5) [facility] PLT 325 10*3/uL (150-450) [facility] MPV 7.9 fL (7.1-10.7) [facility] ID Date Data Source [id number] 12/03/2020 12:44:47 AM EDT [facility] UNIT NUMBER [id number] LOOD COMPONENT TYPE THAWED PLASMA <24UNIT DIVISION 00STATUS OF UNIT TRANSFUSEDTRANSFUSION STATUS OK TO TRANSFUSE Name Value Range Interpretation Code Description Data Nahomi rce(s) Supporting Document(s) TRANSFUSE PLASMA [facility] ID Date Data Source [id number] 12/02/2020 10:57:16 PM EDT [facility] Name Value Range Interpretation Code Description Data Nahomi rce(s) Supporting Document(s) POC NOVA GLU 136 mg/dL (70-99) H [facility] ID Date Data Source [id number] 12/02/2020 10:48:00 PM EDT [facility] Name Value Range Interpretation Code Description Data Nahomi rce(s) Supporting Document(s) SARS coronavirus 2 RNA [Presence] in Res piratory specimen by GENI with probe detection NOT DETECTED [facility] This lab was reported by [facility]. ID Date Data Source [id number] 12/05/2020 11:56:22 PM EDT [facility] SPEC EXP DATE 12/05/2020ATI ENT ABO/Rh O POSITIVEANTIBODY SCREEN NEGATIVETESTING SITE PERFORMED AT [address] [place] [address] [id number] BANK COMMENT BLOOD TYPE CONFIRMED.UNIT NUMBER [id number] COMPONENT TYPE LEUKOPOOR RED CELLSUNIT DIVISION 00STATUS OF UNIT REL FROM ALLOCTRANSFUSION STATUS OK TO TRANSFUSECROSSMATCH RESULT COMPATIBLEUNIT NUMBER [id number] COMPONENT TYPE LEUKOPOOR RED CELLSUNIT DIVISION 00STATUS OF UNIT REL FROM ALLOCTRANSFUSION STATUS OK TO TRANSFUSECROSSMATCH RESULT COMPATIBLE Name Value Range Interpretation Code Description Data Nahomi rce(s) Supporting Document(s) TYPE AND SCREEN [facility] ID Date Data Source [id number] 12/02/2020 11:56:14 PM EDT [facility] Name Value Range Interpretation Code Description Data Nahomi rce(s) Supporting Document(s) SPECIMEN DESCRIPTION [facility] INFLUENZA A (NEG) [facility] INFLUENZA B (NEG) [facility] RSV (NEG) [facility] COMMENT [facility] THE [place] FDA HAS MADE THIS TEST AVAILABL EUNDER AN EMERGENCY USE AUTHORIZATION(EUA) FOR THE DETECTION AND/OR DIAGNOSISOF THE VIRUS THAT CAUSES COVID-19.PERFORMED AT [address] [place] [id number] COVID19 RESULT (NDET) [facility] THIS ASSAY AMPLIFIES AND DETECTSTHE TARG ET RNA USING REAL-TIME PCR.TESTING PERFORMED ON [employer] GENEXPERTNEGATIVE 2019_NCOV RT-PCR RESULTS DONOT PRECLUDE 2019_NCOV INFECTION ANDSHOULD NOT BE USED THE SOLE BASISFOR PATIENT MANAGEMENT DECISIONS. FIRST TEST [facility] SYMPTOMATIC [facility] DATE OF SYMPT ONSET [facility] HOSPITALIZED [facility] [place] [facility] CONGREGATE CARE SET [facility] ID Date Data Source [id number] 12/02/2020 11:24:23 PM EDT [facility] Name Value Range Interpretation Code Description Data Nahomi rce(s) Supporting Document(s) SODIUM 136 mmol/L (136-145) [facility] POTASSIUM 4.2 mmol/L (3.6-5.2) [facility] CHLORIDE 103 mmol/L (100-108) [facility] CO2 25 mmol/L (22-31) [facility] ANION GAP 8 mmol/L (7-16) [facility] UREA NITROGEN 14 mg/dL (7-24) [facility] CREATININE 0.73 mg/dL (0.80-1.30) L [facility] BUN/CREAT RATIO 19.2 RATIO (10.0-20.0) [facility] GLUCOSE 140 mg/dL (70-99) H [facility] CALCIUM 9.1 mg/dL (8.4-10.2) [facility] TOTAL PROTEIN 7.6 g/dL (6.4-8.2) [facility] ALBUMIN 3.4 g/dL (3.5-4.6) L [facility] GLOBULIN 4.2 g/dL (2.7-4.3) [facility] ALB/GLOB RATIO 0.8 RATIO [facility] ALKALINE PHOSPHATASE 55 U/L (45-117) [facility] BILIRUBIN,TOTAL 0.5 mg/dL (0.0-1.0) [facility] PLEASE NOTE:Total bilirubin results may be falselyelevated in patients taking Eltrombopag. AST (SGOT) 13 U/L (11-39) [facility] ALT (SGPT) 32 U/L (12-78) [facility] GFR >60 ml/min/1.73m2 (>59) [facility] GFR ( AMER) >60 ml/min/1.73m2 (>59) [facility] GFR INTERPRETATION [facility] --NORMAL KIDNEY FUNCTION OR MILD DISEASE - GFR >OR= 60CHRONIC KIDNEY DISEASE - GFR 15 - 59RENAL FAILURE - GFR <15 Est. GFR calculation based on the MDRDstudy equation, which assumes a steadystate for creatinine. Est. GFR should notbe used for medication dosing. ID Date Data Source [id number] 12/02/2020 11:21:37 PM EDT [facility] Name Value Range Interpretation Code Description Data Nahomi rce(s) Supporting Document(s) MAGNESIUM 2.0 mg/dL (1.7-2.4) [facility] [place] ID Date Data Source [id number] 12/02/2020 11:21:17 PM EDT [facility] Name Value Range Interpretation Code Description Data Nahomi rce(s) Supporting Document(s) APTT 26.8 s (22.0-34.3) [facility] FRAUSTO Y ID Date Data Source [id number] 12/02/2020 11:21:17 PM EDT [facility] Name Value Range Interpretation Code Description Data Nahomi rce(s) Supporting Document(s) PT 12.4 s (9.2-11.9) H [facility] [place] INR 1.19 [facility] [place] SUGGESTED THERAPEUTIC RANGES USING INR F ORSTABILIZED ANTICOAGULATED PATIENTS:STANDARD DOSE THERAPY INR 2.0-3.0 DVT, PE, PREVENT DVT OR EMBOLISMHIGH DOSE THERAPY INR 2.5-3.5 PREVENT EMBOLISM FROM MECHANICAL HEART VALVE ID Date Data Source [id number] 12/02/2020 11:07:13 PM EDT [facility] Name Value Range Interpretation Code Description Data Nahomi rce(s) Supporting Document(s) WBC 10.3 10*3/uL (4.1-11.0) [facility] RBC 3.83 10*6/uL (4.60-6.10) L [facility] HGB 11.8 g/dL (13.5-18.0) L [facility] HCT 33.2 % (41.0-53.0) L [facility] PERFORMED AT [address] [place] [address] [place] [address] MCV 86.7 fL (80.0-95.0) [facility] MCH 30.8 pg (27.0-32.0) [facility] MCHC 35.5 g/dL (32.0-36.0) [facility] RDW 13.5 % (10.5-14.5) [facility] PLT 383 10*3/uL (150-450) [facility] MPV 7.6 fL (7.1-10.7) [facility] NEUT % 74.2 % (35.0-75.0) [facility] LYMPH % 18.0 % (16.0-52.0) [facility] MONO % 6.3 % (0.0-8.0) [facility] EOS % 0.9 % (0.0-5.0) [facility] BASO % 0.6 % (0.0-4.0) [facility] NEUT # 7.6 10*3/uL (1.8-7.7) [facility] LYMPH # 1.9 10*3/uL (1.2-4.8) [facility] MONO # 0.6 10*3/uL (0.0-0.8) [facility] Eosinophils [#/volume] in Blood by Automated count 0.1 10*3/uL (0.0-0 .5) [facility] BASO # 0.1 10*3/uL (0.0-0.2) [facility] ID Date Data Source [id number] 12/01/2020 07:38:00 AM EDT Erwin Manriquez l DATE OF EXAMINATION: 12/01/2020 0:31 EDT ABD/PEL WITH ORAL AND IV HISTORY: Post bariatric surgery now with nausea and pain Comparison:03/30/2013 TECHNIQUE: This CT exam was performed using the following dose reductiontechniques: automated exposure control, adjustment of mA and/or kV according tothe patient's size, and use of iterative reconstruction technique. Standard contiguous axial spiral imaging was obtained from the dome of thediaphragms through the symphysis pubis without oral contrast and withintravenous contrast administration and with coronal reformatting. FINDINGS:Lower thorax: Lung bases are clear. No pleural or pericardial effusion. ABDOMEN:Liver: The liver is diffusely decreased in attenuation consistent with fattychange. No focal hepatic lesions. Gallbladder and bile ducts: Gallbladder is mild to moderately distended andcannot be characterized further. Pancreas: Pancreas is grossly unremarkable Spleen: Spleen is normal Adrenals: Normal adrenal glands. No adrenal masses Kidneys and ureters: There is a 3 mm nonobstructing stone lower pole the rightkidney. There is a punctate nonobstructing stone in the midpole the left kidney.No hydronephrosis or perinephric soft tissue stranding. No renal masses. Stomach and bowel: Post bariatric surgery. No dilated small bowel or bowel wallthickening. Colon is unremarkable. Appendix: No evidence of appendicitis. The appendix is normal Peritoneum/retroperitoneum:There is stranding within the mesenteric fat in theright lower quadrant of the abdomen. There is trace fluid in the pelvis. Lymph nodes:No adenopathy Soft tissues:Small fat-containing umbilical hernia. Bones:Unremarkable Vessels:Unremarkable PELVIS:Bladder: Bladder is normal. Reproductive: Unremarkable as visualized IMPRESSION: 1. Soft tissue stranding within the mesenteric fat in the right hemiabdomen.This is nonspecific and may represent postoperative change. Adjacent bowel isunremarkable.2 tiny nonobstructing bilateral renal stones3. Fatty liver4. Post bariatric surgery5. Trace fluid in the pelvis. Electronically signed in PS360 by: Akbar Nuno M.D. 12/01/2020 7:33 EDT Name Value Range Interpretation Code Description Data Nahomi rce(s) Supporting Document(s) ID Date Data Source [id number] 12/01/2020 06:46:00 AM EDT [facility] Patient: REGLA MCFARLAND Renayarnaldomarielena pelon Report - [facility].VisitID: [id number] [place] [address] [phone], MRegistration Date/Time: 12/01/2020 00:15 Weight:174.1 kg (S). Height/Length:77 inches (S). BMI:45.6 PAST HISTORYProblems:Obesity.Nephrolithiasis.Anxiety.Gastroesophageal Reflux Disease.Gerd.Hypertension. Additional Surgeries:Gastric bypass. Medications:Omeprazole Oral 20 mg, daily, last dose yest.Lexapro Oral 10 mg, daily, last dose yest.Cardura Oral 2 mg, daily, last dose yest.Carvedilol Phosphate ER Oral 25mg, daily, last dose yest.Allopurinol Oral 300 mg, daily, last dose yest.Acetaminophen Oral 325 mg, as needed.Vit B12 1, daily, last dose yest.Simethicone Oral (Tablet Chewable 80 mg) 1 tablet, daily, last dose yest.Zofran ODT Oral, last dose unk.Vitamin with iron 1, daily, last dose yest.Lovenox Subcutaneous (Solution 40 mg/0.4mL), daily, last dose yest. Allergies:Augmentin.(diarrhea). FAMILY HISTORYMother: Hypertension. INSTRUCTIONSYour Current Medications: Your current home medications have been reviewed. CONTINUE TAKING THE FOLLOWING MEDICATIONS:Acetaminophen Oral : 325 mg, prn. Allopurinol Oral : 300 mg daily, Last: yest. Cardura Oral : 2 mg daily, Last: yest. Carvedilol Phosphate ER Oral : 25mg daily, Last: yest. Lexapro Oral : 10 mg daily, Last: yest. Lovenox Subcutaneous : Solution 40 mg/0.4mL, daily, Last: yest. Omeprazole Oral : 20 mg daily, Last: yest. Simethicone Oral : Tablet Chewable 80 mg, 1 tablet daily, Last: yest. Vit B12* : 1 daily, Last: yest. Vitamin with iron* : 1 daily, Last: yest. Zofran ODT Oral : Last: unk. (Electronically signed by Nalini Bocanegra 12/01/2020 06:42) Name Value Range Interpretation Code Description Data Nahomi rce(s) Supporting Document(s) ID Date Data Source [id number] 12/01/2020 04:29:00 AM EDT [facility] l TSYSORDER [id number] Name Value Range Interpretation Code Description Data Nahomi rce(s) Supporting Document(s) WHITE BLOOD COUNT 11.9 K/mm3 4.0-10.0 H [facility] RED BLOOD COUNT 4.44 M/mm3 4.50-6.00 L [facility] l HEMOGLOBIN 13.1 gm/dL 14.0-18.0 L [facility] HEMATOCRIT 38.1 % 42.0-54.0 L [facility] MEAN CELL VOLUME 85.8 fl 80-96 [facility] MEAN CORPUSCULAR HEMOGLOBIN 29.5 pg 27.0-31.0 [facility] MEAN CORPUSCULAR HGB CONC 34.4 g/dl 32.0-36.0 [facility] RED CELL DISTRIBUTION WIDTH 12.9 % 10.0-14.5 [facility] PLATELET COUNT 407 K/mm3 172-450 [facility] MEAN PLATELET VOLUME 9.5 fl 9.0-13.0 [facility] pital GRAN % 81.4 % 50-80.0 H [facility] IG% 0.2 % 0.0-0.2 [facility] LYMPH % 13.3 % 25.0-50.0 L [facility] MONO % 4.2 % 2.0-10.0 [facility] EOS % 0.6 % 0-5.0 [facility] BASO % 0.3 % 0.0-2.0 [facility] GRAN # 9.7 K/mm3 2.0-8.00 H [facility] IG# 0.0 K/mm3 0.0-0.2 [facility] LYMPH # 1.6 K/mm3 1.0-5.0 [facility] MONO # 0.5 K/mm3 0.10-1.20 [facility] EOS # 0.1 K/mm3 0.0-0.5 [facility] BASO # 0.0 K/mm3 0.0-0.2 [facility] ID Date Data Source [id number] 12/01/2020 12:30:00 AM EDT [facility] TSYSORDER [id number] Name Value Range Interpretation Code Description Data Nahomi rce(s) Supporting Document(s) BLOOD TYPE ABO O [facility] RH TYPE POSITIVE [facility] ANTIBODY SCREEN NEGATIVE [facility] ID Date Data Source [id number] 12/01/2020 01:09:00 AM EDT [facility] TSYSORDER [id number] Name Value Range Interpretation Code Description Data Nahomi rce(s) Supporting Document(s) PARTIAL THROMBOPLASTIN TIME 25.8 SECONDS 21.2-27.3 [facility] ID Date Data Source [id number] 12/01/2020 01:09:00 AM EDT [facility] TSYSORDER [id number] Name Value Range Interpretation Code Description Data Nahomi rce(s) Supporting Document(s) PROTHROMBIN TIME (PATIENT) 11.9 SECONDS 9.1-11.6 H [facility] INR 1.14 0.87-1.06 H [facility] ID Date Data Source [id number] 12/01/2020 12:59:00 AM EDT [facility] l TSYSORDER [id number] Name Value Range Interpretation Code Description Data Nahomi rce(s) Supporting Document(s) MAGNESIUM 1.9 mg/dL 1.8-2.4 [facility] ID Date Data Source [id number] 12/01/2020 12:59:00 AM EDT [facility] TSYSORDER [id number] Name Value Range Interpretation Code Description Data Nahomi rce(s) Supporting Document(s) LIPASE 86 U/L 73-393 [facility] ID Date Data Source [id number] 12/01/2020 12:59:00 AM EDT [facility] TSYSORDER [id number] Name Value Range Interpretation Code Description Data Nahomi rce(s) Supporting Document(s) GLUCOSE 123 mg/dL 74-106 H [facility] BLOOD UREA NITROGEN 14 mg/dL 7-18 [facility] CREATININE 0.85 mg/dL 0.7-1.3 [facility] SODIUM 137 mmol/L 136-145 [facility] POTASSIUM 4.1 mmol/L 3.5-5.1 [facility] CHLORIDE 100 mmol/L 98-107 [facility] CO2 25 mmol/L 21-32 [facility] CALCIUM 9.0 mg/dL 8.5-10.1 [facility] ANION GAP 12.0 mmol/L 5-12 [facility] GLOMERULAR FILTRATION RATE >90 mL/min [facility] GFR IS CALCULATED IN mL/min/1.73m2 JOVANY L FUNCTION: >90MILDLY DECREASED: 60-89MILDY TO MODERATELY DECREASED: 45-59 MODERATELY TO SEVERELY DECREASED: 30-44SEVERELY DECREASED: 15-29RENAL FAILURE: <15 AST 22 U/L 15-37 [facility] ALT 37 U/L 12-78 [facility] ALKALINE PHOSPHATASE 58 U/L 46-116 [facility] TOTAL BILIRUBIN 0.5 mg/dL 0.2-1.0 [facility] TOTAL PROTEIN 7.9 g/dl 6.4-8.2 [facility] ALBUMIN 3.3 gm/dL 3.4-5.0 L [facility] ID Date Data Source [id number] 12/01/2020 12:50:00 AM EDT [facility] TSYSORDER [id number] Name Value Range Interpretation Code Description Data Nahomi rce(s) Supporting Document(s) WHITE BLOOD COUNT 10.9 K/mm3 4.0-10.0 H [facility] ale RED BLOOD COUNT 4.35 M/mm3 4.50-6.00 L [facility] HEMOGLOBIN 12.9 gm/dL 14.0-18.0 L [facility] HEMATOCRIT 37.2 % 42.0-54.0 [facility] MEAN CELL VOLUME 85.5 fl 80-96 [facility] MEAN CORPUSCULAR HEMOGLOBIN 29.7 pg 27.0-31.0 [facility] MEAN CORPUSCULAR HGB CONC 34.7 g/dl 32.0-36.0 [facility] RED CELL DISTRIBUTION WIDTH 12.8 % 10.0-14.5 [facility] PLATELET COUNT 409 K/mm3 172-450 [facility] MEAN PLATELET VOLUME 9.8 fl 9.0-13.0 [facility] pital GRAN % 72.9 % 50-80.0 [facility] IG% 0.2 % 0.0-0.2 [facility] LYMPH % 19.1 % 25.0-50.0 L [facility] MONO % 6.3 % 2.0-10.0 [facility] EOS % 1.3 % 0-5.0 [facility] BASO % 0.2 % 0.0-2.0 [facility] GRAN # 7.9 K/mm3 2.0-8.00 [facility] IG# 0.0 K/mm3 0.0-0.2 [facility] LYMPH # 2.1 K/mm3 1.0-5.0 [facility] MONO # 0.7 K/mm3 0.10-1.20 [facility] EOS # 0.1 K/mm3 0.0-0.5 [facility] BASO # 0.0 K/mm3 0.0-0.2 [facility] ID Date Data Source [id number] 11/24/2020 01:05:47 PM EDT [facility] NT INFORMATIONPatient MRN Name Date of Age Gend*PT [id number] Regla Mcfarland 1985 35 years M IPPT Location Admission Date/Time Visit ID Attending [id number] 11/19/20 0752 --- --- EPI ID CSN Admitting Provider [id number] Izaiah Estrada MD([id number]) Attestation signed by Eamon Shelby MD at 11/24/2020 1:05 PMI have reviewed the above and agree.Signature: aEmon Shelby MDDate: November 24, 2020Time: 1:05 PM Surgical Services Discharge SummaryRegla McfarlandMRN: [id number] date: 11/19/2020ttending Physician: Izaiah Commey, MDAdmission Diagnosis: ObesitySecondary Diagnoses: Principal Problem: ObesityActive Problems: Hypercholesterolemia Hypertension, essential Type 2 diabetes mellitus Anxiety Depression Benign prostatic hyperplasiaPrinciple Procedures: Procedure(s):CREATION, GASTRIC BYPASS, GERTRUDIS-EN-Y, LAPAROSCOPIC, WITH LIVER BIOPSY (N/A)Indication for Admission: Obesity. For full course of events leading toPatients's admission, please refer to the full admitting H&P.Hospital Course & Complications: Mr. Mcfarland is a 35yo WM admitted on 11/19/20with the above diagnosis. On 11/19/20, Mr. Mcfarland underwent laparoscopic gastricbypass with liver biospy with Dr. Estrada and was transferred to PACU without anycomplications. On the evening of his surgery, Mr. Mcfarland did require a straightcath due to retention. No further issues arose wi th urination during hishospitalization. On this night, he also had one episode of emesis after takingall his medications. Mr. Mcfarland received routine post- operative care includingVTE, GI and PNA prophylaxis was initiated. On POD#1, Mr. Mcfarland was toleratingthe restricted bariatric diet without further complication. Prior to discharge,Mr. Mcfarland had good bowel function and ambulating was well. Pain was controlledand mental status was at baseline. After d/w Attending, Mr. Mcfarland was meetingdischarge criteria and was discharged home in stable condition.Past Medical History:Past Medical History:Diagnosis Date Abnormal EKG Dr. Murphy Advanced Air[employer] Equipment Used Anxiety Depression GERD (gastroesophageal reflux disease) Hard to intubate Hypertension Morbid obesity Nephrolithiasis Renal stone Type 2 diabetes mellitusMedications:Your medication listSTART taking these medications Instructions Last Dose Given Morning Afternoon Evening Bedtime As Neededenoxaparin 40 MG/0.4ML SolnCommonly known as: LOVENOX Inject 0.4 mL (40 mg total) under the skin dailymultivitamin with iron Tabs Take 1 tablet by mouth dailyondansetron 4 MG tabletCommonly known as: ZOFRAN Take 1 tablet (4 mg total) by mouth every 8 (eight) hours as needed for nauseasimethicone 80 MG chewable tabletCommonly known as: MYLICON Chew 1 tablet (80 mg total) every 6 (six) hours as needed for flatulencevitamin B-12 100 MCG tabletCommonly known as: CYANOCOBALAMIN Take 0.5 tablets (50 mcg total) by mouth dailyCHANGE how you take these medications Instructions Last Dose Given Morning Afternoon Evening Bedtime As Neededdoxazosin 2 MG tabletCommonly known as: CARDURAWhat changed: See the new instructions. TAKE 1 TABLET NIGHTLYCONTINUE taking these medications Instructions Last Dose Given Morning Afternoon Evening Bedtime As Neededacetaminophen 325 MG tabletCommonly known as: TYLENOL Take 650 mg by mouth daily as needed for painallopurinol 300 MG tabletCommonly known as: ZYLOPRIM Take 300 mg by mouth dailycarvedilol 25 MG tabletCommonly known as: COREG Take 25 mg by mouth 2 (two) times a dayescitalopram 10 MG tabletCommonly known as: LEXAPRO Take 10 mg by mouth dailyomeprazole 20 MG capsuleCommonly known as: PriLOSEC Take 20 mg by mouth dailySTOP taking these medicationsamLODIPine 10 MG tabletCommonly known as: NORVASCglimepiride 2 MG tabletCommonly known as: AMARYLmetFORMIN 500 MG tabletCommonly known as: GLUCOPHAGEspironolactone 50 MG tabletCommonly known as: ALDACTONEvalsartan-hydrochlorothiazide 320-12.5 MG per tabletCommonly known as: DIOVAN-HCTWhere to Get Your MedicationsThese medications were sent to [facility] - [place], [place] - [address] [place] [address] [facility] [address] , [place] [address] ondansetron 4 MG tabletInformation about where to get these medications is not yet availableAsk your nurse or doctor about these medications enoxaparin 40 MG/0.4ML Soln multivitamin with iron Tabs simethicone 80 MG chewable tablet vitamin B-12 100 MCG tabletDischarge Exam:Vitals: Temp: [97.7 F-99.1 F] 99.1 FHeart Rate: [78-90] 85Resp: [15-20] 16BP: (104-149)/(54-83) 134/78For comp lete physical exam, please refer to the progress note documented by thephysician or clinical affiliate on the day of discharge.Discharged Condition:stableCode status: Full CodeDisposition: Home or Self CareFollow Up: Dr. Estrada/Dr. Shelby.Follow up in the office as scheduled. He understands to call the office with anyquestions or concerns. Discharge instructions were reviewed with patient andplaced in the AVS.Signature: Talia Mukherjee PADate: November 20, 2020Time: 2:39 PM Name Value Range Interpretation Code Description Data Nahomi rce(s) Supporting Document(s) ID Date Data Source [id number] 11/20/2020 12:35:34 PM EDT [facility] Name Value Range Interpretation Code Description Data Nahomi rce(s) Supporting Document(s) POC NOVA GLU 183 mg/dL (70-99) H [facility] [place] [facility] ID Date Data Source [id number] 11/20/2020 07:43:27 AM EDT [facility] Name Value Range Interpretation Code Description Data Nahomi rce(s) Supporting Document(s) POC NOVA GLU 156 mg/dL (70-99) H [facility] [place] [facility] ID Date Data Source [id number] 11/19/2020 11:34:14 PM EDT [facility] Name Value Range Interpretation Code Description Data Nahomi rce(s) Supporting Document(s) POC NOVA GLU 159 mg/dL (70-99) H [facility] [place] [facility] ID Date Data Source [id number] 11/19/2020 06:08:09 PM EDT [facility] Name Value Range Interpretation Code Description Data Nahomi rce(s) Supporting Document(s) POC NOVA GLU 181 mg/dL (70-99) H [facility] [place] [facility] ID Date Data Source [id number] 11/20/2020 03:11:21 PM EDT [facility] [place], [place] [address]Tel# Surgical Pathology ReportPatient Name: REGLA MCFARLAND: 1985Accession #:[id number](s) ReceivedA: Liver biopsyClinical Diagnosis and HistoryMorbid obesityDIAGNOSISLIVER, WEDGE BIOPSY: MODERATE MACROVESICULAR STEATOSIS STEATOHEPATITIS FOCAL MILD PORTAL AND SINUSOIDAL FIBROSISCommentsThe sections contain liver exhibiting relatively normal architecture. Thehepatocytes exhibit moderate macrovesicular steatosis in a zonaldistribution. Numerous glycogenated hepatocyte nuclei are also noted. Atrichrome stain shows patchy mild portal fibrosis and sinusoidal fibrosis. A reticulin stain shows a mild increased in the reticulin fibers in theportal regions. An iron stain shows rare reticuloendothelial cells withstainable iron (but iron, overall, does not appear increased). A PASstain, after diastase, shows a few foci with a mild increase inneutrophils. No abnormal hepatocyte inclusions are present. The patientunderwent serologic studies on 11/06/20 that showed normal values foralbumin, alkaline phosphatase, total bilirubin, AST, and ALT. Gross DescriptionReceived in formalin labeled "liver biopsy" is a 1.4 x 1.0 x 0.5 cmtan-red wedge shaped fragment of liver tissue. Serially sectioned andentirely submitted as A1. Modified liver biopsy protocol. [email or web address] Reported: 11/20/2020Electronically Signed Out By Keegan Marin MD [facility] [place] [address] [id number] component perfor med at [facility] CloudCrow[facility] Medical CenterMicrofabricaLAKEWOOD [facility], Histopathology, [address] [place] [address], [id number].Reported at [facility], [address] [place] [address], [id number]. This report may includeimmunohistochemical or in-situ hybridization results. Testing wasdeveloped and the performance characteristics determined by [facility] [employer] as required by CLIA '88. The FDA hasdetermined that approval for specific use is not necessary for clinicaluse. The quality of Hematoxylin and Eosin stains and as applicable, forall immunohistochemical and/or special stains, including positive andnegative controls, were reviewed and considered appropriate.ICD codes E66.01 K76.0 K75.81 K74.0CPT codesA: 56688A, 37560C, 53362D, 69233Q, 14179A Name Value Range Interpretation Code Description Data Nahomi rce(s) Supporting Document(s) ID Date Data Source [id number] 11/19/2020 01:11:29 PM EDT [facility] Name Value Range Interpretation Code Description Data Nahomi rce(s) Supporting Document(s) POC NOVA GLU 183 mg/dL (70-99) H [facility] [place] [facility] ID Date Data Source [id number] 11/19/2020 12:47:14 PM EDT [facility] NT INFORMATIONPatient MRN Name Date of Age Gend*PT [id number] Regla Mcfarland 1985 35 years M IPPT Location Ad[facility] Date[facility] --- Izaiah Estrada MD([id number]) EPI ID CSN Admitting Provider [id number] Izaiah Estrada MD([id number])CREATION, GASTRIC BYPASS, GERTRUDIS-EN-Y, LAPAROSCOPIC, WITH LIVER BIOPSY ProcedureNoteZdoris Mcfarland CSN:[id number]/3/2021urgeon(s):KRYSTAL Niurgical Assist: Tayler Valdovinosaff:OR Weed Cutter: Hany Ramirez RN; LEANDRA Medinaurgical Assist: AMIE Valdovinos Scrub Person: Fidel Soliz; Cristal Flowers RN; Khalida Durhamrocedure(s):CREATION, GASTRIC BYPASS, GERTRUDIS-EN-Y, LAPAROSCOPIC, WITH LIVER BIOPSYLaparoscopic Gertrudis Y Gastric Bypass, antecolic, antegastric, 50 cm PancreaticoBiliary Limb, 150 cm Gertrudis Limb,Wedge liver biopsyEsophagogastrojejunoscopyAnesthesia: GeneralPre-op Diagnosis:Morbid obesity [E66.01]Post-Op Diagnosis Codes: * Morbid obesity [E66.01] * Hepatomegaly [R16.0] * Fatty liver [K76.0]Drains: NoneGrafts/Implants:NoneSpecimens:ID Type Source Tests Collected by [facility] : Liver Biopsy Tissue Tissue SURGICAL PATHOLOGY EXAM Izaiah Estrada MD11/19/2020 1056Estimated Blood Loss: 20 mLBlood Administered: See Anesthesia RecordComplications: NoneFindings: Consistent with the Operative Diagnosis, central visceral obesity,hepatomegaly with blunted edges, fatty liver, delayed JJ enterotomy closure,negative leak test, umbilical port site fascial closure.Indication for Procedure (s):Regla Mcfarland is a 35 years year old male who suffers from severe obesity.Regla Mcfarland has attempted multiple diets over the years, and has been ableto lose modest amounts of weight, however the weight loss has never beensustained. He is 76.5 in, 421lb and BMI of 50.58. His weight impacts hisactivities of daily living. His associated comorbidities include(M54.9) Dorsalgia, unspecified(M25.50) Pain in unspecified joint(I10) Essential (primary) hypertension(E11.9) Type 2 diabetes mellitus without compli cations(K21.9) Gastro-esophageal reflux disease without esophagitisHe meets the criteria for bariatric surgery as defined in the NIH consensusstatement, surgery is medically necessary. We explained the operation, potentialcomplications, what can be expected after surgery, and what to expect for therest of their life. An informed consent discussion was held. The operations Ioffer and their potential complications were discussed. After discussion,patient and I agreed to proceed with a laparoscopic Gertrudis-en-Y Gastric Bypass,possible Sleeve Gastrectomy if hostile abdomen is encountered. Botox educationgiven to patient. This may include repair of a Hiatal Hernia if found and aWedge Liver Biopsy if there is a fatty liver. We covered complicationsincluding: , CO, DVT, PE, leaks, sepsis, gallbladder disease, anastomoticulcers, bleeding, failure of weight loss, malnutrition, need for open surgery,internal and external hernias, risk of COVID 19 infection during the hospitalstay, and the need for repeat surgery, among others.DESCRIPTION OF PROCEDURE: The patient was taken to the operating room and placedon the operating table in supine position. Next, general anesthesia was inducedand patient was intubated. The abdomen was prepped and draped in the usualsterile fashion. A time-out was performed with all OR personnel inparticipation. The patient's identity, procedure, preoperative antibiotics,subcutaneous heparin and SCDs were all confirmed.Access into the intraabdominal cavity was gained through a 12- mm RUQ incisionusing a 12-mm Optiview port with a 10-mm 0- degree scope. Once inside,pneumoperitoneum was established and additional ports were placed in thefollowing configuration: one 12-mm in supraumbilical area and one 12-mm rightlower quadrant port, two 12-mm left sided flank ports and one 5-mm epigastricport. Next, the liver was evaluated, which looked enlarged with blunted edgesand fatty infiltrated, and a wedge liver biopsy was taken from the left lobewith Harmonic device. Afterwards, the root of the mesentery was identified byretracting the mesocolon and transverse colon in a cephalad direction. A 3-0V-Loc suture was placed at the root of the mesentery. This would be used laterfor closure of the Retro-Gertrudis space. The ligament of Treitz was identified andthe small bowel was ran distally 50 cm for the pancreaticobiliary limb and thiswas pushed to the patient's left. An additional 150 cm was measured distallyfor the Gertrudis limb. The small bowel was transected with a white load on a powerEchelon stapler at the 50 cm point. The biliopancreatic limb and the Gertrudis limbwere positioned exhu-fc-watx. The intermesenteric defect between the two limbswas closed with a running 3-0 V-Loc suture. Once this was closed, an enterotomywas made in the biliopancreatic limb and then in the Gertrudis limb. The 60-mmEchelon stapler with a white load was inserted into both enterotomies and firedcreating the jejunojejunostomy. Next, the greater omentum was transected withthe Harmonic device from the colon up to the stomach. Attention was re-directedat the jejunojejunostomy to perform a delayed closure. The internal staple lineof the jejunojejunostomy was inspected with wavy graspers; Hemostasis wasexcellent. Next, the remaining enterotomy defect was closed with a 3-0 V-locsuture in a standard running fashion and double-layer closure technique wasdone.The patient was then placed in steep reverse Trendelenburg and the NG tube wasremoved. The scope was changed to a long bariatric 45 degree scope. The angle ofHis was dissected out with a Charito grasper behind the hiatus, exposing theleft aki. There was no significant hiatal hernia appreciatedThe gastric pouch was then created. Using the wavy graspers and Harmonic device,a perigastric dissection was performed 10 cm distal to the GE junction along thelesser curvature. Once inside the lesser sac, a 60- mm stapler with the greenload cartridge was fired transversely across the lesser curve 50 mm. A 30-Frenchbougie was used up to help size the pouch. The pouch was completed usingmultiple firings of green and blue loads up towards the angle of His andparallel to the lesser curve. Afterwards, a gastrotomy was made at the distalend of the pouch. An enterotomy was made at the 11 o'clock position of theproximal gertrudis. The linear stapler with a blue load cartridge was inserted at 40mm into the gastrotomy and enterotomy and fired creating the gastrojejunostomy.An anti-tension stitch was placed at the crotch of the anastomosis using a 3-0V-Loc suture and this was used to oversew the vertical pouch staple line. 3-0silk anchoring sutures were placed at the proximal and distal end of thegastrojejunostomy opening. The remaining defect of the anastomosis was closedwith a 3-0 V-loc suture in a running fashion. A double- layer closure techniquewas performed. The staple lines of the pouch and remnant stomach were inspectedfor bleeding. Hemostasis was obtained with bipolar cautery.Next, the patient was laid flat. The retro-Gertrudis space was closed with thepreviously placed 3-0 V- Loc suture. After this was done, the anastomosis wastested for leaks. My assistant federal public defender clamped across the Gertrudis limb with the bowel clampwhile I passed the endoscope into the esophagus, into the pouch, and into theRoux limb. I insufflated with air and my assistant federal public defender irrigated over theanastomosis with normal saline. There were no bubbles seen emanating from theanastomosis; therefore, the test was negative and complete. The insufflated airwas evacuated and the scope was retrieved. Next, all staple lines werereinspected and hemostasis was obtained with bipolar cautery. Intra- abdominal0.25% marcaine was placed over the viscera in the upper abdomen. All port siteswere inspected for bleeding and hemostasis was excellent. Umbilical port sitefascial closure was done. The pneumoperitoneum was evacuated and the skinincisions were closed with 4-0 Vicryl. 0.25% Marcaine was used to infiltrate theskin incisions and dermabond was applied. Sponge, needle, and instrument countswere accurate at the end of the case.The patient tolerated the procedure well. They were extubated and taken torecovery room in stable condition.All significant tasks completed under the direction of the primary surgeon withthe exception of:JUANJO Truongate: 11/19/2020 Time: 12:38 PM Name Value Range Interpretation Code Description Data Nahomi rce(s) Supporting Document(s) ID Date Data Source [id number] 11/19/2020 09:31:40 AM EDT [facility] NT INFORMATIONPatient MRN Name Date of Age Gend*PT [id number] Regla Mcfarland 1985 35 years M SDAPT [facility] Ad[facility] Date[facility] --- Izaiah Estrada MD([id number]) EPI ID CSN Admitting Provider [id number] Izaiah Estrada MD([id number])H&P reviewed. The patient was examined and there are no changes to the H&P.Izaiah Estrada MD9:31 AM Name Value Range Interpretation Code Description Data Nahomi rce(s) Supporting Document(s) ID Date Data Source [id number] 11/19/2020 09:24:57 AM EDT [facility] C[facility] Name Value Range Interpretation Code Description Data Nahomi rce(s) Supporting Document(s) POC NOVA GLU 137 mg/dL (70-99) H Lab Carmen bajwa [facility]IN PERFORMED BY [facility] ID Date Data Source [id number] 11/14/2020 08:00:00 AM EDT [facility] Name Value Range Interpretation Code Description Data Nahomi rce(s) Supporting Document(s) SARS coronavirus 2 RNA Not Detected [facility] This lab was ordered by [facility] and reported by [facility]. ID Date Data Source [id number] 11/15/2020 01:08:47 PM EDT Abner Cote Name Value Range Interpretation Code Description Data Nahomi rce(s) Supporting Document(s) SARS-COV-2 GENI [facility] [place] Not DetectedReference range: Not Detecte d This nucleic acid amplification test was developed and its performance characteristics determined by [employer]. Nucleic acid amplification tests include RT-PCR and TMA. This test has not been FDA cleared or approved. This test has been authorized by FDA under an Emergency Use Authorization (EUA). This test is only authorized for the duration of time the declaration that circumstances exist justifying the authorization of the emergency use of in vitro diagnostic tests for detection of SARS-CoV-2 virus and/or diagnosis of COVID-19 infection under section 564(b)(1) of the Act, 21 U.S.C. 360bbb-3(b) (1), unless the authorization is terminated or revoked sooner. When diagnostic testing is negative, the possibility of a false negative result should be considered in the context of a patient's recent exposures and the presence of clinical signs and symptoms consistent with COVID- 19. An individual without symptoms of COVID- 19 and who is not shedding S ARS-CoV-2 virus would expect to have a negative (not detected) result in this assay. Performed At: [facility] [address] [place], [place] [id number] Ilda Zarate PhD Ph:[id number] ID Date Data Source [id number] 11/06/2020 02:41:34 PM EDT [facility] Name Value Range Interpretation Code Description Data Nahomi rce(s) Supporting Document(s) EKG [facility] [id number] [file] boss/qR [file] [id number] ID Date Data Source [id number] 11/06/2020 07:04:56 PM EDT [facility] SPEC EXP DATE 11/20/2020ATI ENT ABO/Rh O POSITIVEANTIBODY SCREEN NEGATIVETESTING SITE PERFORMED AT [address] [place] [address] Name Value Range Interpretation Code Description Data Nahomi rce(s) Supporting Document(s) TYPE AND SCREEN [facility] ID Date Data Source [id number] 11/06/2020 06:44:21 PM EDT [facility] Name Value Range Interpretation Code Description Data Nahomi rce(s) Supporting Document(s) HEMOGLOBIN A1C @ 6.7 % (4.0-6.0) H [facility] Performed using Siemens [place] immunoassa y.Care must be taken when interpreting EhA1kyhkisof in patients with a hemoglobin variantor decreased erythrocyte lifespan. Values 5.7 - 6.4% suggest prediabetes.Values >=6.5% are diagnostic for diabetes.REFERENCE: DIABETES CARE 2018: 41(S13-S27). EST AVERAGE GLUCOSE 146 mg/dL [facility] ID Date Data Source [id number] 11/06/2020 06:41:04 PM EDT [facility] Name Value Range Interpretation Code Description Data Nahomi rce(s) Supporting Document(s) TSH,ULTRASENSITIVE @ 0.772 mIU/L (0.360-4.170) [facility] ID Date Data Source [id number] 11/06/2020 06:41:04 PM EDT [facility] Name Value Range Interpretation Code Description Data Nahomi rce(s) Supporting Document(s) SODIUM 139 mmol/L (136-145) [facility] POTASSIUM 4.2 mmol/L (3.6-5.2) [facility] CHLORIDE 104 mmol/L (100-108) [facility] CO2 25 mmol/L (22-31) [facility] ANION GAP 10 mmol/L (7-16) [facility] UREA NITROGEN 11 mg/dL (7-24) [facility] CREATININE 0.81 mg/dL (0.80-1.30) [facility] BUN/CREAT RATIO 13.6 RATIO (10.0-20.0) [facility] GLUCOSE 115 mg/dL (70-99) H [facility] CALCIUM 9.8 mg/dL (8.4-10.2) [facility] TOTAL PROTEIN 8.0 g/dL (6.4-8.2) [facility] ALBUMIN 4.2 g/dL (3.5-4.6) [facility] GLOBULIN 3.8 g/dL (2.7-4.3) [facility] ALB/GLOB RATIO 1.1 RATIO [facility] ALKALINE PHOSPHATASE 73 U/L (45-117) [facility] BILIRUBIN,TOTAL 0.6 mg/dL (0.0-1.0) [facility] PLEASE NOTE:Total bilirubin results may be falselyelevated in patients taking Eltrombopag. AST (SGOT) 23 U/L (11-39) [facility] ALT (SGPT) 44 U/L (12-78) [facility] GFR >60 ml/min/1.73m2 (>59) [facility] GFR ( AMER) >60 ml/min/1.73m2 (>59) [facility] GFR INTERPRETATION [facility] --NORMAL KIDNEY FUNCTION OR MILD DISEASE - GFR >OR= 60CHRONIC KIDNEY DISEASE - GFR 15 - 59RENAL FAILURE - GFR <15 Est. GFR calculation based on the MDRDstudy equation, which assumes a steadystate for creatinine. Est. GFR should notbe used for medication dosing. ID Date Data Source [id number] 11/06/2020 05:40:27 PM EDT [facility] Name Value Range Interpretation Code Description Data Nahomi rce(s) Supporting Document(s) WBC 10.7 10*3/uL (4.1-11.0) [facility] RBC 4.66 10*6/uL (4.60-6.10) [facility] HGB 14.3 g/dL (13.5-18.0) [facility] HCT 40.7 % (41.0-53.0) L [facility] MCV 87.4 fL (80.0-95.0) [facility] MCH 30.8 pg (27.0-32.0) [facility] MCHC 35.2 g/dL (32.0-36.0) [facility] RDW 14.0 % (10.5-14.5) [facility] PLT 343 10*3/uL (150-450) [facility] MPV 8.0 fL (7.1-10.7) [facility] ID Date Data Source [id number] 11/06/2020 01:48:11 PM EDT [facility] INFORMATIONPatient MRN Name Date of Age Gend*PT [id number] Regla Mcfarland 1985 35 years M OPPT Location Admission Date/Time Visit ID Attending Provider --- --- --- Izaiah Estrada MD([id number]) EPI ID CSN Admitting Provider [id number] Izaiah Estrada MD([id number])HISTORY PHYSICALName: Regla Mcfarland : 1985 Sex: male Care Provider: Ginna Bernardo MDAttending Physician: Dr. EstradaInformant: The patient who is reliable.Chief Complaint: " I need gastric bypass surgery"HISTORY OF PRESENT ILLNESS: Mr. Mcfarland is a 35 years old white male with ahistory of hypertension, type 2 diabetes, anxiety, depression, and GERD whocomplains of being overweight since childhood. He attempted kpb-wwckan-fuusojjumxg diet, calorie count, and increasing exercise. He was able tolose some weight but was not able to sustain. Subsequently patient was referredto Dr. Estrada for surgical evaluation. Options were discussed. Patient haselected to undergo CREATION, GASTRIC BYPASS, GERTRUDIS-EN-Y, LAPAROSCOPIC, WITHSLEEVE GASTRECTOMY IF INDICATED, WITH LIVER BIOPSY IF INDICATED, WITH HIATALHERNIA REPAIR IF INDICATED, WITH LAPAROTOMY IF INDICATED On 11/19/20PAST MEDICAL HISTORY:Past Medical History:Diagnosis Date Abnormal EKG Dr. Murphy Anxiety Depression GERD (gastroesophageal reflux disease) Hypertension Morbid obesity Nephrolithiasis Renal stone Type 2 diabetes mellitusPAST SURGICAL HISTORY:Past Surgical History:Procedure Laterality Date PANENDOSCOPY N/A 08/10/2020 Procedure: ENDOSCOPY, UPPER GASTROINTESTINAL (GI) TRACT W BIOPSY ; Surgeon:Akbar Correa MD; Laterality: N/A;ALLERGIES:AllergiesAllergen Reactions Augmentin [Amoxicillin-Pot Clavulanate] DiarrheaMEDICATIONS:Prior to Admission medicationsMedication Sig Start Date End Date Taking? Authorizing Provideracetaminophen (TYLENOL) 325 MG tablet Take 650 mg by mouth daily as needed forpain Historical Provider, MDallopurinol (ZYLOPRIM) 300 MG tablet Take 300 mg by mouth daily HistoricalProvider, MDamLODIPine (NORVASC) 10 MG tablet Take 10 mg by mouth daily HistoricalProvider, MDcarvedilol (COREG) 25 MG tablet Take 25 mg by mouth 2 (two) times a dayHistorical Provider, MDdoxazosin (CARDURA) 2 MG tablet TAKE 1 TABLET NIGHTLYPatient taking differently: Take 2 mg by mouth nightly 11/06/20 Robby Jaimecitalopram (LEXAPRO) 10 MG tablet Take 10 mg by mouth daily HistoricalProviMD samirglimepiride (AMARYL) 2 MG tablet Take 2 mg by mouth every morning beforebreakfast Historical Provider, CatetFORMIN (GLUCOPHAGE) 500 MG tablet Take 500 mg by mouth 2 (two) times a daywith meals Historical Provider, omeprazole (PRILOSEC) 20 MG capsule Take 20 mg by mouth daily HistoricalProvider, Krystalpironolactone (ALDACTONE) 50 MG tablet Take 50 mg by mouth daily HistoricalProviderMDvalsartan-hydrochlorothiazide (DIOVAN-HCT) 320-12.5 MG per tablet Take 1 tabletby mouth daily Historical Provider, KRYSTALocial HistorySocioeconomic History Marital status: Spouse name: Not on file Number of children: 0 Years of education: Not on file Highest education level: Not on fileOccupational History Occupation: [employer] Use Smoking status: Former Smoker Types: Cigarettes Quit date: 11/2019 Years since quittin.9 Smokeless tobacco: Former User Tobacco comment: former occ/social cig smokerSubstance and Sexual Activity Alcohol use: Yes Comment: 3 drinks a week Drug use: Never Sexual activity: Not on fileOther Topics Concern Not on fileSocial History Narrative Not on fileSocial Determinants of HealthFinancial Resource Strain: Difficulty of Paying Living Expenses:Food Insecurity: Worried About Running Out of Food in the Last Year: Ran Out of Food in the Last Year:Transportation Needs: Lack of Transportation (Medical): Lack of Transportation (Non-Medical):Physical Activity: Days of Exercise per Week: Minutes of Exercise per Session:Stress: Feeling of Stress :Social Connections: Frequency of Communication with Friends and Family: Frequency of Social Gatherings with Friends and Family: Attends Religion Services: Active Member of Clubs or Organizations: Attends Club or Organization Meetings: Marital Status:Intimate Partner Violence: Fear of Current or Ex-Partner: Emotionally Abused: Physically Abused: Sexually Abused:Family HistoryProblem Relation Age of Onset Hypertension Mother Healthy, No Significant History FatherREVIEW OF SYSTEMS:Constitution: Weight stable, Denies fatigue, fever or chills. Caffeine intake: 1cup/day.HEENT: He wears glasses for reading. Denies any blurred vision, double vision,dizziness, tinnitus, dysphagia or headaches.Respiratory: Denies any shortness of breath, cough, yellow sputum production orwheezing.Cardiovascular: Denies any chest pain, pressure or tightness. Denies anyproximal nocturnal dyspnea or orthopnea.Muscle/Skeletal System: Denies any muscle ache, joint ache or weakness.Neurologic: Denies any numbness, tingling, tremors or syncope.GI: Denies any nausea, vomiting, diarrhea, constipation or melena.: Denies any dysuria, hematuria or nocturia.Endocrine: Denies polyuria, polydipsia or polyphagia. Denies any heat or coldintolerance, fatigue or night sweats.Hematology: Denies any bleeding or bruising tendencies.DNR Status: Full Code per the patient.HCP: No per patient.PHYSICAL EXAM:General: He is a 35 years old, pleasant white male, in no acute distress at timeof examination. Vitals on arrival to the office are BP 132/76 (BP Location:Right upper arm, Patient Position: Sitting) | Pulse 86 | Temp 97.4 F | Resp18 | Ht 1.956 m (6' 5") | Wt (!) 186.4 kg (411 lb) | SpO2 97% | BMI 48.74kg/m Body mass index is 48.74 kg/m ..Skin is pink warm and dry.HEENT: He is normocephalic, atraumatic. Athalia conjunctivae. Anicteric sclerae.Pupils are equal, round, reactive to light and accommodation. Extraocularmovements are intact. Ears: Without drainage or lesion. Mouth: Dentition is ingood repair. He has a grade IV airway. Neck is supple midline without cervicaladenopathy. There is no tonsillo pharyngeal congestion. Mucous membranes aremoist. There are no oral lesions. No jugular distention. No carotid bruit.CHEST/BREAST: A/P less than transverse. Breast exam declined.LUNGS: Clear to auscultation. No wheezes, rhonchi or crackles.HEART: Rate rhythm regular. S1, S2. No murmur, rub or gallop.ABDOMEN: Morbidly obese bowel sounds positive times four. Soft, non tender. Norebound tenderness. No hepatosplenomegaly. Negative CVAT.GENITAL/RECTAL: Deferred.MUSCLE/SKELETAL: Strength is 5/5. 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 NO edema.Anesthesia complications: DeniesSteroid use: He denies any oral steroid therapy for three weeks or greaterwithin the last 3 months.CSHA Frailty Scale :: 3/10 Managing Well (medical problems are well controlled,but are not regularly active beyond routine walking).Stop Bang Questionnaire - Total Score:STOP-Bang Total Score: 5IMPRESSION and PLAN:Primary Diagnosis: Morbid obesity surgery as per Dr. Hayward Diagnosis and Plan:1. Hypertension Continuation of prior to admission anti-hypertensivemedications unless precluded by clinical status.2. Diabetes Type 2 Routine blood glucose monitoring. Sliding scaleinsulin coverage while inpatient. Hold oral diabetic medications.3. GI prophylaxis Per surgeon4. DVT prophylaxis Early ambulation. Pneumatic compression device.Subcutaneous Heparin or LMW Heparin if clinically indicated5. Patient has history of abnormal EKG. He was last seen by quality assurance supervisor body on08/17/2020. Patient states that he was evaluated by PCP for preop stratification.Based on above medical co morbidities, length of stay may be prolonged greaterthan previously anticipated.ALLERGIES:Augmentin [amoxicillin-pot clavulanate]11/06/2020 1:48 Tami Costa document or parts of this document, were dictated using IPexpert speaking software. A reasonable attempt at proofreading has beenmade to minimize errors. Please call with any questions or corrections. Name Value Range Interpretation Code Description Data Nahomi rce(s) Supporting Document(s) ID Date Data Source [id number] 10/26/2020 12:00:00 AM EDT [facility] Name Value Range Interpretation Code Description Data Nahomi rce(s) Supporting Document(s) PCR NEGATIVE [facility] This lab was ordered by [facility] and reported by [facility]. ID Date Data Source [id number] 08/12/2020 06:53:30 AM EST [facility] [address] [id number]# Surgical Pathology ReportPatient Name: REGLA MCFARLAND: 1985Accession #:[id number](s) ReceivedA: AntrumB: Fundal polyps bxsClinical Diagnosis and HistoryReflux, r/o H. pylori DIAGNOSISA. STOMACH, BIOPSIES: MILD CHRONIC INFLAMMATION AND CHANGES CONSISTENT WITH MILDREACTIVE GASTROPATHY IMMUNOHISTOCHEMICAL STAIN FOR HELICOBACTER PYLORI IS NEGATIVEB. STOMACH, BIOPSIES: FUNDIC GLAND POLYPS, BENIGNCommentsAccording to the upper endoscopy report, the patient was found to havemultiple small to medium sized polyps, likely fundic gland in the fundusand an otherwise normal upper endoscopy.Slides are reviewed by one other pathologist who concurs with thediagnoses. Gross DescriptionPart A. Received in formalin labeled "antrum rule out H. pylori" are twotan-pink irregular fragments of tissue measuring 0.4 and 0.5 cm. Entirelysubmitted as A1. 1 + 1. . Part B. Received in formalin labeled "fundal polyps biopsies" are twotan-pink polypoid fragments of tissue measuring 0.1 and 0.2 cm. Entirelysubmitted as B1. 1 + 1. jgllmr/pms Reported: 08/12/2020Electronically Signed Out By Mary Degroot M.D. [facility] [place] [id number] component performed at [facility], Histopathology, [address] [place] [address], [phone].Reported at [facility], [address] [place] [address], [id number]. This report may includeimmunohistochemical or in-situ hybridization results. Testing wasdeveloped and the performance characteristics determined by [employer] as required by CLIA '88. The FDA hasdetermined that approval for specific use is not necessary for clinicaluse. The quality of Hematoxylin and Eosin stains and as applicable, forall immunohistochemical and/or special stains, including positive andnegative controls, were reviewed and considered appropriate.ICD codes K21.9CPT codesA: 56618H, 61939xN: 46215H Name Value Range Interpretation Code Description Data Nahomi rce(s) Supporting Document(s) ID Date Data Source [id number] 08/10/2020 11:09:56 AM EST [facility]PAT[facility] NT INFORMATIONPatient MRN Name Date of Age Gend*PT [id number] Regla Mcfarland 1985 35 years M OPPT Location Admission Date/Time Visit [facility] [place] [facility]10[facility] 0906 --- Akbar Correa MD([id number]) EPI ID CSN Admitting Provider [id number] Akbar Correa MD([id number])Endoscopic Gastroduodenoscopy Procedure NotePatient: Regla McfarlandSurgery Date: August 10urgeon(s):COLETTE Santiagore-Operative Diagnosis:Esophageal reflux [K21.9]Post-Operative Diagnosis:Esophageal reflux [K21.9]Gastric PolypsRecommendations:1. Will send biopsy results to Dr. Shelby's officeSedation: Monitored Anesthesia Care (MAC) (see anesthesia report).ASA Class: IIOther Equipment Type Equipment Setting Setting Low Setting High Applied By Endoscope Akbar Correa MD [facility] (ENDO)Indications: Esophageal reflux [K21.9]Consent:After obtaining history and performing the physical examination, the procedure,indications, potential complications, including but not limited to bleeding,perforation, infection, adverse medication reaction, and alternatives wereexplained to the patient. Patient appeared to understand the benefits and risksof this procedure. Informed consent was obtained from the patient afterproviding opportunity for questions.Procedure Details:The patient was placed in the left lateral decubitus position and monitored perendoscopy protocol. The gastroscope was inserted into the mouth and advancedunder direct visualization to Duodenum 3rd portion. A careful inspection wasmade as the gastroscope was withdrawn, including a retroflexed view of theproximal stomach; findings and interventions are described below. Aftercompletion of the examination, the patient was transferred to the recovery room.* No implants in log *Findings:Oropharynx: NormalEsophagus: NormalEG Junction: Normal at 50 cmCardia: NormalFundus: Multiple small/medium polyps likely fundic gland- biopsy takenBody: NormalAntrum: Normal. Biopsy for H pylori taken.Pylorus: NormalDuodenum Bulb: NormalDuodenum 2nd Portion: NormalDuodenum 3rd Portion: NormalSpecimens:ID Type Source Tests Collected by Time DestinationA : Antrum Bx r/o h.pylori Tissue Biopsy SURGICAL PATHOLOGY EXAM Akbar Correa MD 08/10/2020 1100B : Antrum Bx r/o h.pylori Tissue Biopsy SURGICAL PATHOLOGY EXAM Akbar Correa MD 08/10/2020 1103Complications: None; patient tolerated the procedure well.Estimated Blood Loss: Nicola Correa MD111:06 AM Name Value Range Interpretation Code Description Data [facility] rce(s) Supporting Document(s) ID Date Data Source [id number] 08/10/2020 10:28:34 AM EST [facility] NT INFORMATIONPatient MRN Name Date of Age Gend*PT [id number] Regla Mcfarland 1985 35 years M OPPT Location Admission Date/Time Visit ID Attending [facility] 08/10/20905 --- Akbar Correa MD([id number]) EPI ID CSN Admitting Provider [id number] Akbar Correa MD([id number])H&P reviewed. The patient was examined and there are no changes to the H&P.Akbar Correa MD10:28 AM Name Value Range Interpretation Code Description Data [facility](s) Supporting Document(s) ID Date Data Source [id number] 08/10/2020 09:59:01 AM EST [facility] NT INFORMATIONPatient MRN Name Date of Age Gend*PT [id number] Regla Mcfarland 1985 35 years M OPPT Location Admission Date/Time Visit ID Attending [facility] 08/10/20905 --- Akbar Correa MD([id number]) EPI ID CSN Admitting Provider [id number] Akbar Correa MD([id number])Pre-Procedure History and Physical:Past Medical History:Diagnosis Date Hypertension Nephrolithiasis Type 2 diabetes mellitusPast Surgical History:Procedure Laterality Date NO PAST SURGERIESAllergiesAllergen Reactions Augmentin [Amoxicillin-Pot Clavulanate] DiarrheaMedications Prior to AdmissionMedication Sig Dispense Refill Last Dose allopurinol (ZYLOPRIM) 300 MG tablet Take 300 mg by mouth daily Taking amLODIPine (NORVASC) 10 MG tablet Take 10 mg by mouth daily Taking carvedilol (COREG) 25 MG tablet Take 25 mg by mouth 2 (two) times a dayTaking doxazosin (CARDURA) 2 MG tablet Take 1 tablet (2 mg total) by mouth nightly 90tablet 1 escitalopram (LEXAPRO) 10 MG tablet Take 10 mg by mouth daily Taking glimepiride (AMARYL) 2 MG tablet Take 2 mg by mouth every morning beforebreakfast Taking metFORMIN (GLUCOPHAGE) 500 MG tablet Take 500 mg by mouth 2 (two) times a daywith meals Taking omeprazole (PRILOSEC) 20 MG capsule Take 20 mg by mouth daily Taking valsartan-hydrochlorothiazide (DIOVAN-HCT) 320-12.5 MG per tablet Take 1tablet by mouth daily TakingThere were no vitals taken for this visit.The scanned [04/29/2020] history and physical were reviewed and the patient wasexamined.There are no changes to the H&P.Akbar Correa MD08/10/20 9:58 AM Name Value Range Interpretation Code Description Data [facility] rce(s) Supporting Document(s) ID Date Data Source [id number] 08/05/2020 10:15:00 AM EST [facility] Name Value Range Interpretation Code Description [facility](s) SARS coronavirus 2 RNA Not Detected [facility] This lab was ordered by [facility] and reported by [email or web address]. ID Date Data Source [id number] 08/06/2020 03:09:02 PM EST [facility] Name Value Range Interpretation Code Description Data [facility] Supporting Document(s) SARS-COV-2 [facility] Not DetectedReference range: Not Detecte d This nucleic acid amplification test was developed and its performance characteristics determined by [employer]. Nucleic acid amplification tests include RT-PCR and TMA. This test has not been FDA cleared or approved. This test has been authorized by FDA under an Emergency Use Authorization (EUA). This test is only authorized for the duration of time the declaration that circumstances exist justifying the authorization of the emergency use of in vitro diagnostic tests for detection of SARS-CoV-2 virus and/or diagnosis of COVID-19 infection under section 564(b)(1) of the Act, 21 U.S.C. 360bbb-3(b) (1), unless the authorization is terminated or revoked sooner. When diagnostic testing is negative, the possibility of a false negative result should be considered in the context of a patient's recent exposures and the presence of clinical signs and symptoms consistent with COVID- 19. An individual without symptoms of COVID- 19 and who is not shedding S ARS-CoV-2 virus would expect to have a negative (not detected) result in this assay. Performed At: [facility] [address] [place], [place] [id number] Alvaro Luna PhD Ph:[phone] ID Date Data Source [id number] 04/29/2020 07:28:00 PM EST [facility] Name Value Range Interpretation Code Description Data [facility] rce(s) Supporting Document(s) HEMOGLOBIN A1C @ 7.2 % (4.0-6.0) H [facility] Performed using Siemens [employer] immunoassa y.Care must be taken when interpreting [id number] in patients with a hemoglobin variantor decreased erythrocyte lifespan. Values 5.7 - 6.4% suggest prediabetes.Values >=6.5% are diagnostic for diabetes.REFERENCE: DIABETES CARE 2018: 41(S13-S27). EST AVERAGE GLUCOSE 160 mg/dL Laboratory [facility] ID Date Data Source [id number] 04/29/2020 07:41:26 PM EST [facility] Name Value Range Interpretation Code Description Data [facility] rce(s) Supporting Document(s) TSH,ULTRASENSITIVE @ 0.730 mIU/L (0.360-4.170) [facility] Procedure Social History Code Duration Value Status Description Data Source(s ) Tattoo/Piercing 03/26/2021 12:00:00 AM EDT Tattoo completed Tatt oo MED[facility] ([facility]) ETOH Use 03/26/2021 12:00:00 AM EDT Denies alcohol use complete d Denies alcohol use [facility] ([facility]) Smoking 03/26/2021 12:00:00 AM EDT Patient has never smoked co mpleted Patient has never smoked [facility] ([facility]) Smoking 12/23/2020 12:00:00 AM EDT Former Smoker completed Former Smoker eCW1 ([facility]) Smoking 12/23/2020 12:00:00 AM EDT Former Smoker completed Former Smoker eCW1 ([facility]) Alcohol intake 11/20/2020 12:00:00 AM EDT Current drinker of al cohol (finding) completed Current drinker of alcohol (finding) [facility] Alcohol intake 11/06/2020 12:00:00 AM EDT Current drinker of al cohol (finding) completed Current drinker of alcohol (finding) [facility] Smoking 10/29/2020 12:00:00 AM EDT Former Smoker completed Former Smoker eCW1 ([facility]) Smoking 10/29/2020 12:00:00 AM EDT Former Smoker completed Former Smoker eCW1 ([facility]) Smoking 10/29/2020 12:00:00 AM EDT Former Smoker completed Former Smoker eCW1 ([facility]) Smoking 10/29/2020 12:00:00 AM EDT Former Smoker completed Former Smoker eCW1 ([facility]) Alcohol intake 08/17/2020 12:00:00 AM EST Yes completed [facility] Smoking 08/17/2020 12:00:00 AM EST Former smoker completed Former smoker [facility] Smoking 07/30/2020 12:00:00 AM EST Former Smoker completed Former Smoker eCW1 ([facility]) Smoking 07/30/2020 12:00:00 AM EST Former Smoker completed Former Smoker eCW1 ([facility]) Smoking 07/30/2020 12:00:00 AM EST Former Smoker completed Former Smoker eCW1 ([facility]) Smoking 07/30/2020 12:00:00 AM EST Former Smoker completed Former Smoker eCW1 ([facility]) Smoking 07/30/2020 12:00:00 AM EST Former Smoker completed Former Smoker eCW1 ([facility]) Smoking 07/30/2020 12:00:00 AM EST Former Smoker completed Former Smoker eCW1 ([facility]) Smoking 07/30/2020 12:00:00 AM EST Former Smoker completed Former Smoker eCW1 ([facility]) Smoking 06/29/2020 12:00:00 AM EST Former Smoker completed Former Smoker eCW1 ([facility]) Smoking 06/29/2020 12:00:00 AM EST Former Smoker completed Former Smoker eCW1 ([facility]) Smoking 06/29/2020 12:00:00 AM EST Former Smoker completed Former Smoker eCW1 ([facility]) Smoking 06/29/2020 12:00:00 AM EST Former Smoker completed Former Smoker eCW1 ([facility]) Smoking 06/29/2020 12:00:00 AM EST Former Smoker completed Former Smoker eCW1 ([facility]) Smoking 06/01/2020 12:00:00 AM EST Former Smoker completed Former Smoker eCW1 ([facility]) Alcohol intake 05/19/2020 12:00:00 AM EST Yes completed [facility] Smoking 05/19/2020 12:00:00 AM EST Former smoker completed Former smoker [facility] Vital Signs ID Date Data Source UNK Name Value Range Interpretation Code Description Data Source(s) Body temperature 97.6 [degF] 97.6 [degF] [facility] ([facility]) Body height 77 [in_i] 77 [in_i] [facility]) 6'5" Body weight 319.00 [lb_av] 319.00 [lb_av] MEDEN T ([facility]) Systolic blood pressure 167 mm[Hg] 167 mm[Hg] M EDENT ([facility]) Diastolic blood pressure 106 mm[Hg] 106 mm[Hg] [facility] ([facility]) Heart rate 82 /min 82 /min [facility] Body mass index (BMI) [Ratio] 37.8 kg/m2 37.8 k g/m2 [facility] ([facility]) Body weight 362 [lb_av] 362 [lb_av] eCW1 ([facility]) Body height [in_i] eCW1 ([facility]) Body mass index (BMI) [Ratio] 44.64 kg/m2 44.64 kg/m2 eCW1 ([facility]) Heart rate 67 /min 67 /min eCW1 ([facility]) Respiratory rate 18 /min 18 /min eCW1 ([facility] Body temperature 97.8 [degF] 97.8 [degF] eCW1 ( [facility]) Systolic blood pressure 135 mm[Hg] 135 mm[Hg] e CW1 ([facility]) Diastolic blood pressure 89 mm[Hg] 89 mm[Hg] eCW1 ([facility]) Systolic blood pressure 144 mm[Hg] 144 mm[Hg] [facility] Diastolic blood pressure 82 mm[Hg] 82 mm[Hg] [facility] Heart rate 76 /min 76 /min [facility] Body temperature 36.5 Tarsha 36.5 Tarsha [facility] Oxygen saturation in Arterial blood by Pulse oximetry 96 % 96 % [facility] Respiratory rate 16 /min 16 /min [facility] Body height 177.8 cm 177.8 cm [facility] Body weight 136.079 kg 136.079 kg [facility] Body mass index (BMI) [Ratio] 43.05 kg/m2 43.05 kg/m2 [facility] Heart rate 85 /min 85 /min [facility] Systolic blood pressure 134 mm[Hg] 134 mm[Hg] [facility] Diastolic blood pressure 78 mm[Hg] 78 mm[Hg] [facility] Body temperature 37.28 Tarsha 37.28 Tarsha [facility] Respiratory rate 16 /min 16 /min [facility] Oxygen saturation in Arterial blood by Pulse oximetry 92 % 92 % [facility] Body height 195.6 cm 195.6 cm [facility] Body weight 182.346 kg 182.346 kg [facility] Body mass index (BMI) [Ratio] 47.67 kg/m2 47.67 kg/m2 [facility] Systolic blood pressure 132 mm[Hg] 132 mm[Hg] [facility] Diastolic blood pressure 76 mm[Hg] 76 mm[Hg] [facility] Heart rate 86 /min 86 /min [facility] Oxygen saturation in Arterial blood by Pulse oximetry 97 % 97 % [facility] Respiratory rate 18 /min 18 /min [facility] Body height 195.6 cm 195.6 cm [facility] Body weight 186.428 kg 186.428 kg [facility] Body mass index (BMI) [Ratio] 48.74 kg/m2 48.74 kg/m2 [facility] Body temperature 36.33 Tarsha 36.33 Tarsha [facility] Body mass index (BMI) [Ratio] 51.92 kg/m2 51.92 kg/m2 eCW1 ([facility]) Body height [in_i] eCW1 ([facility]) Body weight 421 [lb_av] 421 [lb_av] eCW1 ([facility]) Heart rate 98 /min 98 /min eCW1 ([facility]) Respiratory rate 16 /min 16 /min eCW1 ([facility]) Body temperature 99.8 [degF] 99.8 [degF] eCW1 ( [facility]) Systolic blood pressure 136 mm[Hg] 136 mm[Hg] e CW1 ([facility]) Diastolic blood pressure 78 mm[Hg] 78 mm[Hg] eCW1 ([facility]) Body temperature 98 [degF] 98 [degF] eCW1 ([facility] Body weight 424.8 [lb_av] 424.8 [lb_av] eCW1 ([facility]) Body height [in_i] eCW1 ([facility]) Body mass index (BMI) [Ratio] 52.39 kg/m2 52.39 kg/m2 eCW1 ([facility]) Heart rate 87 /min 87 /min eCW1 ([facility]) Respiratory rate 18 /min 18 /min eCW1 ([facility]) Systolic blood pressure 146 mm[Hg] 146 mm[Hg] e CW1 ([facility]) Diastolic blood pressure 84 mm[Hg] 84 mm[Hg] eCW1 ([facility]) Diastolic blood pressure 97 mm[Hg] 97 mm[Hg] eCW1 ([facility]) Body weight 422 [lb_av] 422 [lb_av] eCW1 ([facility]) Body height [in_i] eCW1 ([facility]) Body mass index (BMI) [Ratio] 52.04 kg/m2 52.04 kg/m2 eCW1 ([facility]) Heart rate 90 /min 90 /min eCW1 ([facility]) Respiratory rate 18 /min 18 /min eCW1 ([facility]) Systolic blood pressure 150 mm[Hg] 150 mm[Hg] e CW1 ([facility]) Systolic blood pressure 128 mm[Hg] 128 mm[Hg] [facility] Diastolic blood pressure 70 mm[Hg] 70 mm[Hg] [facility] Heart rate 89 /min 89 /min [facility] Body height 198.1 cm 198.1 cm [facility] Body weight 191.69 kg 191.69 kg [facility] Body mass index (BMI) [Ratio] 48.84 kg/m2 48.84 kg/m2 [facility] Oxygen saturation in Arterial blood by Pulse oximetry 97 % 97 % [facility] Body weight 419 [lb_av] 419 [lb_av] eCW1 ([facility]) Body height [in_i] eCW1 ([facility]) Body mass index (BMI) [Ratio] 51.67 kg/m2 51.67 kg/m2 eCW1 ([facility]) Heart rate 83 /min 83 /min eCW1 ([facility]) Respiratory rate 18 /min 18 /min eCW1 ([facility]) Body temperature 98.8 [degF] 98.8 [degF] eCW1 ( [facility]) Systolic blood pressure 180 mm[Hg] 180 mm[Hg] e CW1 ([facility]) Diastolic blood pressure 99 mm[Hg] 99 mm[Hg] eCW1 ([facility]) Body weight 420 [lb_av] 420 [lb_av] eCW1 ([facility]) Body height [in_i] eCW1 ([facility]) Body mass index (BMI) [Ratio] 51.80 kg/m2 51.80 kg/m2 eCW1 ([facility]) Heart rate 84 /min 84 /min eCW1 ([facility]) Respiratory rate 18 /min 18 /min eCW1 ([facility]) Body temperature 98.1 [degF] 98.1 [degF] eCW1 ( [facility]) Diastolic blood pressure 75 mm[Hg] 75 mm[Hg] eCW1 ([facility]) Systolic blood pressure 131 mm[Hg] 131 mm[Hg] e CW1 ([facility]) Body weight [lb_av] eCW1 ([facility]) Body height [in_i] eCW1 ([facility]) Body mass index (BMI) [Ratio] 51.92 kg/m2 51.92 kg/m2 eCW1 ([facility]) Heart rate 82 /min 82 /min eCW1 ([facility]) Respiratory rate 18 /min 18 /min eCW1 ([facility]) Body temperature 97.6 [degF] 97.6 [degF] eCW1 ( [facility]) Systolic blood pressure 158 mm[Hg] 158 mm[Hg] e CW1 ([facility]) Diastolic blood pressure 95 mm[Hg] 95 mm[Hg] eCW1 ([facility]) Systolic blood pressure 160 mm[Hg] 160 mm[Hg] [facility] Diastolic blood pressure 90 mm[Hg] 90 mm[Hg] [facility] Heart rate 91 /min 91 /min [facility] Body height 195.6 cm 195.6 cm [facility] Body weight 190.057 kg 190.057 kg [facility] Body mass index (BMI) [Ratio] 49.69 kg/m2 49.69 kg/m2 [facility] Oxygen saturation in Arterial blood by Pulse oximetry 95 % 95 % [facility] ID Date Data Source [id number] 02/03/2021 05:17:00 AM EDT [facility] l Name Value Range Interpretation Code Description Data Source(s) WEIGHT 176.9 kilos 176.9 kilos [facility] HEIGHT 195.58 centimeters 195.58 centimeter [facility] ID Date Data Source [id number] 02/03/2021 05:17:00 AM EDT [facility] l Name Value Range Interpretation Code Description Data Source(s) WEIGHT 181.43 kilos 181.43 kilos [facility] HEIGHT 195.58 centimeters 195.58 centimeter [facility] Patient Treatment Plan of Care Planned Activity Planned Date Details Description Data Source (s) Lancets - 11/23/2020 12:00:00 AM EDT e CW1 ([facility]) Blood Glucose Test - 11/23/2020 12:00:00 AM EDT eCW1 ([facility]) Glucometer 11/23/2020 12:00:00 AM EDT e CW1 ([facility]) ondansetron (ZOFRAN-ODT) disintegrating tablet 8 mg 11/21/19 06:00:00 AM EDT [facility] Ascorbic Acid 60 MG / Beta Carotene 5000 UNT / Copper Sulfate 40 MG / dl-alpha tocopheryl acetate 30 UNT / Sodium Selenite 0.04 MG / Zinc Oxide 40 MG Oral Tablet 11/20/2020 12:00:00 AM EDT [facility] Vitamin B 12 0.1 MG Oral Tablet 11/20/2020 12:00:00 AM EDT [facility] Ondansetron 4 MG Oral Tablet 11/20/2020 12:00:00 AM EDT [facility] Simethicone 80 MG Chewable Tablet 11/20/2020 12:00:00 AM EDT [facility] 0.4 ML Enoxaparin sodium 100 MG/ML Prefilled Syringe 12:00:00 AM EDT [facility] Acetaminophen 325 MG Oral Tablet 11/20/2020 12:00:00 AM EDT [facility] normal saline flush 0.9 % injection 3 mL 11/19/2020 10:00:00 PM EDT [facility] metoclopramide (REGLAN) injection 10 mg 11/19/2020 02:37:52 PM EDT [facility] Promethazine Hydrochloride 25 MG Oral Tablet 11/19/2020 02:37:51 PM EDT [facility] Prochlorperazine 10 MG Oral Tablet 11/19/2020 02:37:51 PM EDT [facility] enalaprilat (VASOTEC) injection 1.25 mg 11/19/2020 02:37:50 PM EDT [facility] Clonidine Hydrochloride 0.1 MG Oral Tablet 11/19/2020 02:37:49 PM E DT [facility] Doxazosin 2 MG Oral Tablet 11/06/2020 12:00:00 AM EDT [facility] Doxazosin 2 MG Oral Tablet 05/19/2020 12:00:00 AM EST [facility] Spironolactone 50 MG Oral Tablet 05/04/2020 12:00:00 AM EST [facility] Spironolactone 50 MG Oral Tablet [facility] Amlodipine 10 MG Oral Tablet [facility] glimepiride 2 MG Oral Tablet [facility] Metformin hydrochloride 500 MG Oral Tablet [facility] Hydrochlorothiazide 12.5 MG / valsartan 320 MG Oral Tablet [facility]
[2021-05-24] MEDS ORDERED: fentaNYL 100 MCG/2 ML INJECTION (J3010) As Ordered ONE (10:00)
--- NOTE | 2021-05-24 10:38 | ROOR ---
Patient Name: Norberto Martinez Procedure Date: 05/24/2021 9:55 AM Date of : 1985 Age: 36 Room: [facility] Gender: Male Note Status: Finalized Procedure: Upper GI endoscopy Indications: Acute post hemorrhagic anemia, Suspected upper gastrointestinal bleeding in patient with unexplained iron deficiency anemia Providers: Yusuf Mirza MD Referring MD: Ginna ISAAC DO Requesting Provider: Medicines: Monitored Anesthesia Care Complications: No immediate complications. Procedure: Pre-Anesthesia Assessment: - Prior to the procedure, a History and Physical was performed, and patient medications and allergies were reviewed. The patient is competent. The risks and benefits of the procedure and the sedation options and risks were discussed with the patient. All questions were answered and informed consent was obtained. Patient identification and proposed procedure were verified by the physician, the nurse and the anesthesiologist in the procedure room. Mental Status Examination: alert and oriented. Airway Examination: normal oropharyngeal airway and neck mobility. Respiratory Examination: clear to auscultation. CV Examination: normal. Prophylactic Antibiotics: The patient does not require prophylactic antibiotics. Prior Anticoagulants: The patient has taken no previous anticoagulant or antiplatelet agents. ASA Grade Assessment: II - A patient with mild systemic disease. After reviewing the risks and benefits, the patient was deemed in satisfactory condition to undergo the procedure. The anesthesia plan was to use monitored anesthesia care (MAC). Immediately prior to administration of medications, the patient was re-assessed for adequacy to receive sedatives. The heart rate, respiratory rate, oxygen saturations, blood pressure, adequacy of pulmonary ventilation, and response to care were monitored throughout the procedure. The physical status of the patient was re-assessed after the procedure. The Endoscope was introduced through the mouth, and advanced to the second part of duodenum. The upper GI endoscopy was accomplished without difficulty. The patient tolerated the procedure well. Findings: The examined esophagus was normal. 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 The gastrojejunal anastomosis was characterized by erythema, friable mucosa and an intact staple line. This was traversed. The ttfay-il-asselap limb was characterized by erythema, friable mucosa and an intact staple line. The jejunojejunal anastomosis was characterized by healthy appearing mucosa. The rkkktcpd-vi-untbmui limb was examined. The examined jejunum was normal. Impression: - Normal esophagus. - Connor-en-Y gastrojejunostomy with gastrojejunal anastomosis characterized by erythema, friable mucosa and an intact staple line. - Normal examined jejunum. - No specimens collected. Recommendation: - Patient has a contact number available for emergencies. The signs and symptoms of potential delayed complications were discussed with the patient. Return to normal activities tomorrow. Written discharge instructions were provided to the patient. - High fiber diet and Post gastric bypass diet (small frequent meals and avoid fatty/ fried foods). - Continue present medications. - Follow an antireflux regimen. - Use sucralfate suspension 1 gram PO QID for 4 weeks. - Check CBC, serum iron , transferrin and ferritin levels (fasting labs) in 2 months. - Telephone GI clinic for lab results in 2 months. - Return to GI clinic electively as outpatient if the above repeat labs show persistent anemia / abnormalities. - Return to primary care physician. Procedure Code(s): --- Professional --- 84473, Esophagogastroduodenoscopy, flexible, transoral; diagnostic, including collection of specimen(s) by brushing or washing, when performed (separate procedure) Diagnosis Code(s): --- Professional --- Z98.0, Intestinal bypass and anastomosis status D62, Acute posthemorrhagic anemia D50.9, Iron deficiency anemia, unspecified CPT copyright 2019 [employer]. All rights reserved. The codes documented in this report are preliminary and upon histology manager review may be revised to meet current compliance requirements. Yusuf Mirza MD Yusuf Mirza MD 05/24/2021 10:37:44 AM Electronically signed by Yusuf Mirza MD Number of Addenda: 0 Note Initiated On: 05/24/2021 9:55 AM Estimated Blood Loss: Estimated blood loss: none.
--- NOTE | 2021-05-24 10:40 | ROOR ---
Patient Name: Norberto Martinez Procedure Date: 05/24/2021 9:56 AM Date of : 1985 Age: 36 Room: [facility] Gender: Male Note Status: Finalized Procedure: Colonoscopy Indications: Rectal bleeding, Gastrointestinal bleeding Providers: Yusuf Mirza MD Referring MD: Ginna ISAAC DO Requesting Provider: Medicines: Monitored Anesthesia Care Complications: No immediate complications. Procedure: Pre-Anesthesia Assessment: - Prior to the procedure, a History and Physical was performed, and patient medications and allergies were reviewed. The patient is competent. The risks and benefits of the procedure and the sedation options and risks were discussed with the patient. All questions were answered and informed consent was obtained. Patient identification and proposed procedure were verified by the physician, the nurse and the anesthesiologist in the procedure room. Mental Status Examination: alert and oriented. Airway Examination: normal oropharyngeal airway and neck mobility. Respiratory Examination: clear to auscultation. CV Examination: normal. Prophylactic Antibiotics: The patient does not require prophylactic antibiotics. Prior Anticoagulants: The patient has taken no previous anticoagulant or antiplatelet agents. ASA Grade Assessment: II - A patient with mild systemic disease. After reviewing the risks and benefits, the patient was deemed in satisfactory condition to undergo the procedure. The anesthesia plan was to use monitored anesthesia care (MAC). Immediately prior to administration of medications, the patient was re-assessed for adequacy to receive sedatives. The heart rate, respiratory rate, oxygen saturations, blood pressure, adequacy of pulmonary ventilation, and response to care were monitored throughout the procedure. The physical status of the patient was re-assessed after the procedure. The Colonoscope was introduced through the anus and advanced to the terminal ileum, with identification of the appendiceal orifice and IC valve. The colonoscopy was performed without difficulty. The patient tolerated the procedure well. The quality of the bowel preparation was good. The terminal ileum, ileocecal valve, appendiceal orifice, and rectum were photographed. Scope insertion time was 2 minutes. Scope withdrawal time was 8 minutes. The total duration of the procedure was 10 minutes. Findings: The perianal and digital rectal examinations were normal. The terminal ileum appeared normal. Normal mucosa was found in the entire colon. Non-bleeding external and internal hemorrhoids were found during retroflexion. The hemorrhoids were medium-sized. Impression: - The examined portion of the ileum was normal. - Normal mucosa in the entire examined colon. - Non-bleeding external and internal hemorrhoids. - No specimens collected. Recommendation: - Patient has a contact number available for emergencies. The signs and symptoms of potential delayed complications were discussed with the patient. Return to normal activities tomorrow. Written discharge instructions were provided to the patient. - High fiber diet and Post gastric bypass diet (small frequent meals and avoid fatty/ fried foods). - Continue present medications. - Follow the recommendations as per the other procedure note. - Repeat colonoscopy in 10 years for screening purposes. - Return to primary care physician. Procedure Code(s): --- Professional --- 44244, Colonoscopy, flexible; diagnostic, including collection of specimen(s) by brushing or washing, when performed (separate procedure) Diagnosis Code(s): --- Professional --- K64.8, Other hemorrhoids K62.5, Hemorrhage of anus and rectum K92.2, Gastrointestinal hemorrhage, unspecified CPT copyright 2019 [employer]. All rights reserved. The codes documented in this report are preliminary and upon inserter promotional item review may be revised to meet current compliance requirements. Yusuf Mirza MD Yusuf Mirza MD 05/24/2021 10:39:59 AM Electronically signed by Yusuf Mirza MD Number of Addenda: 0 Note Initiated On: 05/24/2021 9:56 AM Estimated Blood Loss: Estimated blood loss was minimal.
[2021-05-24 11:04] VITALS: BP 146/81
== END 2021-05-24 11:14 | disposition home or self-care (01) ==
LOC: M OPP 08:10
PROVIDERS: ATTEND Internal Medicine Gastroenterology
DX: K92.2 Gastrointestinal hemorrhage, unspecified (principal); K64.8 Other hemorrhoids; Z98.0 Intestinal bypass and anastomosis status; D62 Acute posthemorrhagic anemia; D50.9 Iron deficiency anemia, unspecified; Z79.899 Other long term (current) drug therapy; Z88.1 Allergy status to other antibiotic agents; Z88.8 Allergy status to other drugs, medicaments and biological substances; Z98.84 Bariatric surgery status; Z87.891 Personal history of nicotine dependence; Z80.3 Family history of malignant neoplasm of breast
CPT/HCPCS: 43235; 45378; J3010

== ENCOUNTER → 2022-07-04 | Outpatient (REF) | payer BC, OTHER ==
[~2022-07-04] MED LIST changes: -LIDOCAINE 2% 100MG/5ML SDV (FOR ANES.) As Ordered ONE; -NS 1,000 ML IV ONE; +OMEP-173 PO; -OMEP-218 PO; -propofoL 500 MG/50 ML VIAL As Ordered ONE
[2022-07-04 11:27] LABS: HEMATOCRIT 38.9 % (42.0-52.0); MEAN CORPUSCULAR HEMOGLOBIN 28.6 pg (27.0-33.0); MEAN CORPUSCULAR HGB CONC 33.4 g/dl (32.0-36.5); MEAN CORPUSCULAR VOLUME 85.5 fl (80.0-96.0); PLATELET COUNT, AUTOMATED 229 10^3/uL (150-450); RED BLOOD COUNT 4.55 10^6/uL (4.30-6.10); WHITE BLOOD COUNT 5.9 10^3/uL (4.0-10.0)
[2022-07-04 11:35] LABS: ALBUMIN 3.7 G/DL (3.2-5.2); ALKALINE PHOSPHATASE 87 U/L (46-116); ALT/SGPT 23 U/L (7.0-40); AST/SGOT 20 U/L (<34); BILIRUBIN,TOTAL 0.6 MG/DL (0.3-1.2); BLOOD UREA NITROGEN 9 MG/DL (9-23); CALCIUM LEVEL 8.7 MG/DL (8.5-10.1); CARBON DIOXIDE LEVEL 30 MMOL/L (20-31); CHLORIDE LEVEL 104 MMOL/L (98-107); CHOLESTEROL LEVEL 128 MG/DL (<200); CHOLESTEROL RISK RATIO 2.61 (<5); CREATININE FOR GFR 0.61 MG/DL (0.70-1.30); GLOMERULAR FILTRATION RATE > 60.0 (>60); GLUCOSE, FASTING 95 MG/DL (60-100); IRON (FE) 56 UG/DL (65-175); LDL CHOLESTEROL 69.6 MG/DL (<100); NON-HDL-C 79 MG/DL; PERCENT SATURATION 15.3 % (19.7-50.0); POTASSIUM SERUM 4.2 MMOL/L (3.5-5.1); SODIUM LEVEL 140 MMOL/L (136-145); TOTAL IRON BINDING CAPACITY 367 UG/DL (250-425); TOTAL PROTEIN 7.2 G/DL (5.7-8.2); TRIGLYCERIDES LEVEL 47 MG/DL (<150)
[2022-07-04 11:36] LABS: TOTAL 25(OH) VITAMIN D 30.5 NG/ML (20.0-100.0)
[2022-07-04 11:37] LABS: FERRITIN 9.7 NG/ML (10.5-307.3); FOLATE > 24.00 NG/ML (>5.4); VITAMIN B12 LEVEL 426 PG/ML (211-911)
== END ==
LOC: M SFHCCLAY 08:43
PROVIDERS: ATTEND Nurse Practitioner Family
DX: Z00.00 Encounter for general adult medical examination without abnormal findings (principal); E11.9 Type 2 diabetes mellitus without complications; E78.2 Mixed hyperlipidemia; Z98.84 Bariatric surgery status; N20.0 Calculus of kidney

== ENCOUNTER → 2022-07-05 | Outpatient (REF) | payer BC, OTHER ==
[2022-07-05 17:54] LABS: CREATININE, URINE 138.6 MG/DL; MAU/CREAT RATIO 5.7 MCG/MG (0.0-30.0)
== END ==
LOC: M SFHCCLAY 16:48
PROVIDERS: ATTEND Nurse Practitioner Family
DX: Z00.00 Encounter for general adult medical examination without abnormal findings (principal); E11.9 Type 2 diabetes mellitus without complications

== ENCOUNTER → 2022-09-20 | Outpatient (REF) | payer BC, OTHER ==
[2022-09-20 20:20] LABS: HEMATOCRIT 40.3 % (42.0-52.0); HEMOGLOBIN 13.6 g/dl (13.5-17.5); MEAN CORPUSCULAR HEMOGLOBIN 29.1 pg (27.0-33.0); MEAN CORPUSCULAR HGB CONC 33.7 g/dl (32.0-36.5); MEAN CORPUSCULAR VOLUME 86.1 fl (80.0-96.0); PLATELET COUNT, AUTOMATED 261 10^3/uL (150-450); RED BLOOD COUNT 4.68 10^6/uL (4.30-6.10); WHITE BLOOD COUNT 7.7 10^3/uL (4.0-10.0)
[2022-09-20 20:40] LABS: HEMOGLOBIN A1c 5.3 % (4.0-6.0)
[2022-09-20 20:48] LABS: FREE T4 1.19 NG/DL (0.89-1.76); THYROID STIMULATING HORMONE 0.921 uIU/ML (0.55-4.78)
[2022-09-20 20:50] LABS: BLOOD UREA NITROGEN 13 MG/DL (9-23); CALCIUM LEVEL 8.9 MG/DL (8.5-10.1); CARBON DIOXIDE LEVEL 30 MMOL/L (20-31); CHLORIDE LEVEL 105 MMOL/L (98-107); CREATININE FOR GFR 0.63 MG/DL (0.70-1.30); GLOMERULAR FILTRATION RATE > 60.0 (>60); GLUCOSE, FASTING 67 MG/DL (60-100); POTASSIUM SERUM 4.2 MMOL/L (3.5-5.1); SODIUM LEVEL 140 MMOL/L (136-145)
[2022-09-20 20:51] LABS: TESTOSTERONE 391 NG/DL (241-827)
== END ==
LOC: M SFHCCLAY 14:59
PROVIDERS: ATTEND Nurse Practitioner Family
DX: Z00.00 Encounter for general adult medical examination without abnormal findings (principal); E11.9 Type 2 diabetes mellitus without complications; I11.9 Hypertensive heart disease without heart failure; N52.9 Male erectile dysfunction, unspecified; Z98.84 Bariatric surgery status; D50.9 Iron deficiency anemia, unspecified

== ENCOUNTER → 2022-12-21 | Outpatient (REF) | payer BC, OTHER ==
[2022-12-21 12:27] LABS: ALBUMIN 3.9 G/DL (3.2-5.2); ALKALINE PHOSPHATASE 68 U/L (46-116); ALT/SGPT 19 U/L (7.0-40); AST/SGOT 12 U/L (<34); BILIRUBIN,TOTAL 0.8 MG/DL (0.3-1.2); BLOOD UREA NITROGEN 13 MG/DL (9-23); CALCIUM LEVEL 9.4 MG/DL (8.5-10.1); CARBON DIOXIDE LEVEL 32 MMOL/L (20-31); CHLORIDE LEVEL 103 MMOL/L (98-107); CREATININE FOR GFR 0.62 MG/DL (0.70-1.30); FERRITIN 22.3 NG/ML (10.5-307.3); FREE T4 1.11 NG/DL (0.89-1.76); GLOMERULAR FILTRATION RATE > 60.0 (>60); GLUCOSE, FASTING 94 MG/DL (60-100); IRON (FE) 113 UG/DL (65-175); POTASSIUM SERUM 3.6 MMOL/L (3.5-5.1); SODIUM LEVEL 140 MMOL/L (136-145); TOTAL PROTEIN 6.9 G/DL (5.7-8.2)
[2022-12-21 12:28] LABS: PERCENT SATURATION 32.5 % (19.7-50.0); TOTAL IRON BINDING CAPACITY 348 UG/DL (250-425)
[2022-12-21 12:30] LABS: TESTOSTERONE 542 NG/DL (241-827)
== END ==
LOC: M SFHCCLAY 07:06
PROVIDERS: ATTEND Nurse Practitioner Family
DX: N52.9 Male erectile dysfunction, unspecified (principal); F32.9 Major depressive disorder, single episode, unspecified; D50.9 Iron deficiency anemia, unspecified

== ENCOUNTER → 2023-08-02 | Outpatient (REF) | payer BC, OTHER ==
[~2023-08-02] MED LIST changes: -DOXA2TAB3 PO; +DOXA2TAB61 PO
[2023-08-02 15:02] LABS: HEMOGLOBIN A1c 5.2 % (4.0-6.0)
== END ==
LOC: M SFHCCLAY 07:20
PROVIDERS: ATTEND Nurse Practitioner Family
DX: E11.9 Type 2 diabetes mellitus without complications (principal)

== ENCOUNTER → 2024-01-15 | Outpatient (REF) | payer BC, OTHER ==
[2024-01-15 12:05] LABS: HEMOGLOBIN A1c 5.1 % (4.0-6.0)
[2024-01-15 12:14] LABS: TOTAL IRON BINDING CAPACITY 353 UG/DL (250-425)
[2024-01-15 12:15] LABS: ALBUMIN 3.9 G/DL (3.2-5.2); ALKALINE PHOSPHATASE 72 U/L (46-116); ALT/SGPT 23 U/L (7.0-40); AST/SGOT 15 U/L (<34); BILIRUBIN,TOTAL 0.9 MG/DL (0.3-1.2); BLOOD UREA NITROGEN 12 MG/DL (9-23); CALCIUM LEVEL 9.2 MG/DL (8.5-10.1); CARBON DIOXIDE LEVEL 32 MMOL/L (20-31); CHLORIDE LEVEL 106 MMOL/L (98-107); CHOLESTEROL LEVEL 144 MG/DL (<200); CHOLESTEROL RISK RATIO 2.98 (<5); CREATININE FOR GFR 0.69 MG/DL (0.70-1.30); FERRITIN 34.1 NG/ML (10.5-307.3); GLOMERULAR FILTRATION RATE > 60.0 (>60); GLUCOSE, FASTING 106 MG/DL (60-100); HDL CHOLESTEROL 48.2 MG/DL (>40); IRON (FE) 161 UG/DL (65-175); LDL CHOLESTEROL 75.4 MG/DL (<100); NON-HDL-C 95.8 MG/DL; PERCENT SATURATION 45.6 % (19.7-50.0); POTASSIUM SERUM 4.2 MMOL/L (3.5-5.1); SODIUM LEVEL 139 MMOL/L (136-145); TOTAL PROTEIN 7.1 G/DL (5.7-8.2); TRIGLYCERIDES LEVEL 102 MG/DL (<150)
== END ==
LOC: M SFHCCLAY 07:10
PROVIDERS: ATTEND Nurse Practitioner Family
DX: F41.9 Anxiety disorder, unspecified (principal); N52.9 Male erectile dysfunction, unspecified; F32.9 Major depressive disorder, single episode, unspecified; D50.9 Iron deficiency anemia, unspecified; E11.9 Type 2 diabetes mellitus without complications; I10 Essential (primary) hypertension

== ENCOUNTER → 2024-02-21 | Outpatient (REF) | payer BC, OTHER | LOC: M SFHCCLAY 16:28 | PROVIDERS: ATTEND Nurse Practitioner Family | DX: N53.12 Painful ejaculation (principal); R39.11 Hesitancy of micturition ==

== ENCOUNTER → 2024-02-23 | Outpatient (REF) | payer BC, OTHER ==
[2024-02-23 13:40] LABS: ALBUMIN 4.3 G/DL (3.2-5.2); ALKALINE PHOSPHATASE 77 U/L (46-116); ALT/SGPT 36 U/L (7.0-40); AST/SGOT 26 U/L (<34); BILIRUBIN,TOTAL 0.8 MG/DL (0.3-1.2); BLOOD UREA NITROGEN 14 MG/DL (9-23); CALCIUM LEVEL 9.2 MG/DL (8.5-10.1); CARBON DIOXIDE LEVEL 28 MMOL/L (20-31); CHLORIDE LEVEL 105 MMOL/L (98-107); CREATININE FOR GFR 0.67 MG/DL (0.70-1.30); GLOMERULAR FILTRATION RATE > 60.0 (>60); GLUCOSE, FASTING 98 MG/DL (60-100); PSA SCREENING 0.28 NG/ML (< 4.00); SODIUM LEVEL 139 MMOL/L (136-145); TOTAL PROTEIN 7.6 G/DL (5.7-8.2)
[2024-02-23 13:42] LABS: TESTOSTERONE 491 NG/DL (241-827)
== END ==
LOC: M SFHCCLAY 08:17
PROVIDERS: ATTEND Nurse Practitioner Family
DX: R39.11 Hesitancy of micturition (principal); N52.9 Male erectile dysfunction, unspecified; N53.12 Painful ejaculation
CPT/HCPCS: 80053; 84403; G0103

== ENCOUNTER → 2024-04-08 | Outpatient (CLI) | payer BC, OTHER | LOC: M CARPUL 13:59 | PROVIDERS: ATTEND Nurse Practitioner Family | DX: I10 Essential (primary) hypertension (principal); I36.0 Nonrheumatic tricuspid (valve) stenosis ==

== ENCOUNTER → 2024-07-08 | Outpatient (CLI) | payer BC, OTHER | LOC: M CLY 08:49 | PROVIDERS: ATTEND Nurse Practitioner Family | DX: M79.671 Pain in right foot (principal) ==

== ENCOUNTER → 2025-05-23 | Outpatient (REF) | payer BC, OTHER ==
[2025-05-23 13:01] LABS: ESTIMATED AVERAGE GLUCOSE 94.0 MG/DL (60-110)
[2025-05-23 13:10] LABS: ALT/SGPT 24 U/L (7.0-40); AST/SGOT 22 U/L (<34); CALCIUM LEVEL 9.1 MG/DL (8.5-10.1); CARBON DIOXIDE LEVEL 33 MMOL/L (20-31); CHLORIDE LEVEL 102 MMOL/L (98-107); CHOLESTEROL LEVEL 143 MG/DL (<200); CHOLESTEROL RISK RATIO 2.56 (<5); CREATININE FOR GFR 0.67 MG/DL (0.70-1.30); GLOMERULAR FILTRATION RATE > 90.0 (>60); LDL CHOLESTEROL 74.4 MG/DL (<100); NON-HDL-C 87.2 MG/DL; POTASSIUM SERUM 4.2 MMOL/L (3.5-5.1); SODIUM LEVEL 142 MMOL/L (136-145); TRIGLYCERIDES LEVEL 64 MG/DL (<150)
== END ==
LOC: M SFHCCLAY 07:30
PROVIDERS: ATTEND Nurse Practitioner Family
DX: E11.9 Type 2 diabetes mellitus without complications (principal); I10 Essential (primary) hypertension; E66.9 Obesity, unspecified; Z98.84 Bariatric surgery status